=== PATIENT | male | born 1960 | race Caucasian/White ===

== ENCOUNTER 2020-03-30 16:32 | Emergency (ER) | payer OTHER, SELFPAY ==
[2020-03-30 16:37] VITALS: BP 158/83; PULSE 79; RESP 22; TEMP 5447.2; TEMP 9837; O2SAT 97; BMI 24.4
== END 2020-03-30 17:58 | disposition left against medical advice (07) ==
PROVIDERS: Emergency Provider Emergency Medicine
DX: F41.9 Anxiety disorder, unspecified (principal); F11.20 Opioid dependence, uncomplicated
CPT/HCPCS: 99282

== ENCOUNTER → 2020-04-21 13:41 | Outpatient (BNVA) | payer OTHER, SELFPAY | PROVIDERS: PCP Nurse Practitioner Family; Visit Provider Physician Assistant Medical ==

== ENCOUNTER 2020-05-19 16:22 | Outpatient (REF) | payer OTHER, SELFPAY ==
--- NOTE | ~2020-05-19 | CT_ITS ---
EXAMINATION: CT CHEST SCREENING CLINICAL INFORMATION: Smoking history COMPARISON: Previous chest x-ray August 2018 TECHNIQUE: Multidetector volumetric CT imaging of the chest is performed without contrast using low dose technique. Additional 2D coronal and sagittal reformatted images and axial 3D maximum intensity projection (MIP) images are generated on the CT workstation. This CT examination was performed using dose optimization techniques as appropriate, variously including the following: *Automated exposure control *Adjustment of mA and/or kV according to patient size (this includes techniques or standardized protocols for targeted exams where dose is matched to indication/reason for exam; i.e. extremities or head) *Use of iterative reconstruction technique DLP: 53 mGy-cm FINDINGS: LUNGS: There is a 5 mm heterogeneous left upper lobe nodule axial image 54 series 5. There is a 2 mm right upper lobe nodule axial image 88 series 5. There is a 3 mm peripheral left upper lobe nodule axial image 93 series 5. There is a 2 mm left upper lobe nodule axial image 109 series 5. There is a 3 mm left upper lobe nodule axial image 173 series 5. There is a 2 mm right upper lobe nodule axial 2 9 series 5. There is a 5 mm peripheral or subpleural right lower lobe nodule axial 221 series 5. There is a 3 mm slightly 100 TE as nodule in the right lower lobe axial image 392 series 5. There is a 2 mm peripheral right lower lobe nodule axial image 333 series 5. There is a 2 mm right lower lobe nodule axial image 449 series 5. There is evidence of mild emphysema. No evidence of bronchiectasis or interstitial lung disease is seen. No endobronchial or endotracheal lesion is seen. MEDIASTINUM: There is mild coronary artery calcification. The mediastinum is otherwise normal. PLEURA: There is no pleural effusion. No pleural mass or thickening. AXILLA: No lymphadenopathy. UPPER ABDOMEN: The left adrenal gland is slightly prominent. The right adrenal gland is normal. OSSEOUS STRUCTURES: There are degenerative changes of the spine. CT/CT lung screening IMPRESSION: Mild emphysema. Small pulmonary nodules. Mild coronary artery calcification. ASSESSMENT: Lung-RADS category 2: Benign RECOMMENDATION: Annual low-dose chest CT follow-up recommended.
== END 2020-05-19 16:23 | disposition home or self-care (01) ==
LOC: HO.CT 16:22
PROVIDERS: PCP Nurse Practitioner Family; Visit Provider Physician Assistant Medical
DX: Z12.2 Encounter for screening for malignant neoplasm of respiratory organs (principal); F17.210 Nicotine dependence, cigarettes, uncomplicated
CPT/HCPCS: 71271

== ENCOUNTER 2020-11-27 07:58 | Outpatient (REF) | payer OTHER, SELFPAY ==
[2020-11-27 11:55] LABS: Alanine Aminotransferase 24 U/L (0-40); Albumin Level 4.4 g/dL (3.5-5.0); Alkaline Phosphatase 99 U/L (39-117); Anion Gap 15 (12-20); Aspartate Amino Transferase 20 U/L (5-37); Bilirubin Total 0.2 mg/dL (0.0-1.0); Blood Urea Nitrogen 12 mg/dL (9-16); Calcium 9.5 mg/dL (8.4-10.2); Carbon Dioxide 26 mmol/L (22-29); Chloride 103 mmol/L (96-108); Cholesterol 180 mg/dL; Estimated Glomerular Filt Rate > 60; Glucose Fasting 117 mg/dL (60-99); HDL Cholesterol 61 mg/dL; LDL Cholesterol Calculated 101 mg/dl; Potassium 4.4 mmol/L (3.3-5.1); Sodium 140 mmol/L (135-145); Total Protein 7.5 g/dL (6.5-8.0); Triglycerides 90 mg/dL
[2020-11-27 12:17] LABS: Prostate Specific Antigen Scr 0.42 ng/mL (<0.05-4.0); TSH reflex Free T4 1.22 uIU/mL (0.32-4.0)
== END 2020-11-27 07:59 | disposition home or self-care (01) ==
LOC: HO.HMGCLDS 07:58
PROVIDERS: PCP Nurse Practitioner Family; Visit Provider Nurse Practitioner Family
DX: Z00.00 Encounter for general adult medical examination without abnormal findings (principal); Z12.5 Encounter for screening for malignant neoplasm of prostate
CPT/HCPCS: 36415; 80053; 80061; 84153; 84443

== ENCOUNTER 2021-12-04 09:30 | Outpatient (REF) | payer OTHER, SELFPAY | END 2021-12-04 09:31 | disposition home or self-care (01) | LOC: HO.CT 09:30 | PROVIDERS: Visit Provider Physician Assistant Medical | DX: Z12.2 Encounter for screening for malignant neoplasm of respiratory organs (principal); F17.210 Nicotine dependence, cigarettes, uncomplicated | CPT/HCPCS: 71271 ==

== ENCOUNTER 2022-09-21 08:52 | Outpatient (REF) | payer OTHER, SELFPAY ==
[2022-09-21 11:27] LABS: MANUAL DIFF FLAG NO
[2022-09-21 11:34] LABS: Basophils Absolute Auto 0.1 X10*3/uL (0.0-0.2); Basophils Percent Auto 0.8 % (0-2); Eosinophils Absolute Auto 0.2 X10*3/uL (0.0-0.4); Eosinophils Percent Auto 1.7 % (0-4); Hematocrit 46.7 % (42.0-52.0); Hemoglobin 15.4 g/dl (14.0-18.0); Imm Gran Abs Auto 0.03 X10*3/uL (0.00-0.03); Imm Gran Pct Auto 0.3 % (0.0-0.4); Lymphocytes Absolute Auto 2.6 X10*3/uL (1.2-4.9); Mean Corpuscular Hemoglobin 28.4 pg (27.0-33.0); Mean Corpuscular Volume 86.2 fL (80.0-98.0); Mean Platelet Volume 10.3 fL (9.4-12.4); Monocytes Absolute Auto 0.8 X10*3/uL (0.1-1.2); Neutrophils Absolute Auto 7.5 x10*3/uL (2.0-8.3); Neutrophils Percent Auto 67.2 % (45-73); Platelet Count 301 X10*3/uL (160-400); Red Blood Count 5.42 X10*6/uL (4.60-5.80); Red Cell Distribution Width 13.1 % (11.0-16.0); White Blood Count 11.2 X10*3/uL (4.8-10.8)
[2022-09-21 11:41] LABS: Appearance Urine Clear; Color Urine Yellow; Glucose Urine UA Negative (Negative); Leukocyte Esterase Urine Negative (Negative); Nitrite Urine Negative (Negative); Urine Blood Negative (Negative); Urine Ketones Negative (Negative); Urine Protein Negative (Neg-Trace)
[2022-09-21 12:09] LABS: Alanine Aminotransferase 42 U/L (0-40); Albumin Level 4.4 g/dL (3.5-5.0); Alkaline Phosphatase 97 U/L (39-117); Anion Gap 12 (12-20); Aspartate Amino Transferase 23 U/L (5-37); Bilirubin Total 0.3 mg/dL (0.0-1.0); Blood Urea Nitrogen 11 mg/dL (9-16); Calcium 9.7 mg/dL (8.4-10.2); Carbon Dioxide 29 mmol/L (22-29); Chloride 103 mmol/L (96-108); Cholesterol 185 mg/dL; Estimated Glomerular Filt Rate > 60; Glucose Fasting 105 mg/dL (60-99); HDL Cholesterol 51 mg/dL; LDL Cholesterol Calculated 115 mg/dl; Potassium 4.4 mmol/L (3.3-5.1); Sodium 140 mmol/L (135-145); Total Protein 7.9 g/dL (6.5-8.0); Triglycerides 96 mg/dL
[2022-09-21 12:13] LABS: Prostate Specific Antigen Scr 0.93 ng/mL (<0.05-4.0); TSH reflex Free T4 1.33 uIU/mL (0.32-4.0)
== END 2022-09-21 08:53 | disposition home or self-care (01) ==
LOC: HO.HMGCLDS 08:52
PROVIDERS: PCP Nurse Practitioner Family; Visit Provider Nurse Practitioner Family
DX: I10 Essential (primary) hypertension (principal); Z12.5 Encounter for screening for malignant neoplasm of prostate
CPT/HCPCS: 36415; 80053; 80061; 81003; 84153; 84443; 85025

== ENCOUNTER 2022-10-11 08:10 | Outpatient (REF) | payer OTHER, SELFPAY ==
--- NOTE | 2022-10-11 08:54 | PFT_ITS ---
FLOWS: 1. FEV1 53% of predicted at 2.08 L. 2. FVC 79% of predicted at 4.07 L. 3. FEV1 to FVC ratio of 0.51. 4. No bronchodilator response. LUNG VOLUMES: 1. Total lung capacity 93% of predicted at 6.93 L. 2. Residual volume 106% of predicted at 2.51 L. 3. Slow vital capacity 87% of predicted at 4.42 L. 4. Expiratory reserve volume 111% of predicted at 1.71 L. 5. Diffusion capacity is mildly decreased. IMPRESSION: Moderate obstructive ventilatory defect with no bronchodilator response. Decreased diffusion capacity suggests emphysema. MD GRISELDA Clark/MODL / [id number]
== END 2022-10-11 08:11 | disposition home or self-care (01) ==
LOC: HO.RESP 08:10
PROVIDERS: PCP Nurse Practitioner Family; Visit Provider Nurse Practitioner Family
DX: J44.9 Chronic obstructive pulmonary disease, unspecified (principal)
CPT/HCPCS: 94010; 94727; 94729

== ENCOUNTER → 2022-10-11 08:54 | Outpatient (BNV) | payer OTHER, SELFPAY | PROVIDERS: PCP Nurse Practitioner Family; Visit Provider Internal Medicine Pulmonary Disease | DX: J44.9 Chronic obstructive pulmonary disease, unspecified (principal); F17.210 Nicotine dependence, cigarettes, uncomplicated | CPT/HCPCS: 94060; 94727; 94729 ==

== ENCOUNTER 2023-01-27 08:25 | Outpatient (AMB) | payer OTHER, SELFPAY ==
[2023-01-27 08:55] VITALS: BP 132/70; PULSE 68; TEMP 36.6; O2SAT 96; BMI 26.7
--- NOTE | 2023-01-27 08:55 | MHC.OFFWIV ---
Intake Vital Signs 01/27/23 08:55 Height 6 ft Weight 197 lb BMI 26.7 BP 132/70 Blood Pressure Location Lt brachial Position Sitting Pulse 68 Pulse Source Pulse Oximeter Temp 97.8 F Temp Source Temporal Artery Scan Pulse Oximetry (%) 96 Intake Visit Reasons: EP ?Spider bite Lt arm Intake Note: pt is here for c.o spider bite left arm Patient Tobacco Use Status: Current everyday Tobacco user Allergies No Known Allergies [No Known Allergies*] Allergy (Verified 01/27/23 09:41) Medication List - Last Reconciled 01/27/23 by Pilo Medrano MD albuterol sulfate 90 mcg/actuation (ProAir HFA) 1 puff inhalation QID PRN amlodipine 10 mg PO DAILY 90 days clonidine HCl 0.2 mg PO TID 90 days diltiazem HCl 30 mg PO BID 90 days fluticasone propion-salmeterol 250-50 mcg/dose (Advair Diskus) 1 inh inhalation Q12H 90 days hydrochlorothiazide 12.5 mg PO DAILY Do you need a note to return to daycare/school/sports/work: Yes HPI EP ?Spider bite Lt arm HPI Details 62-year-old male presents to the office for a sick visit. Patient has a bruise on the left forearm any believes it could be a spider bite. Symptoms are present since last night. [facility] Medical History (Updated 01/27/23 @ 09:42 by Pilo Medrano MD) Colon cancer screening declined Heroin abuse Substance abuse Right femoral fracture Family History Father No problems noted. Family/Other No problems noted. Other Substance use disorder Housing: House Alcohol intake: former Patient Tobacco Use Status: Current everyday Tobacco user Cigarette Packs Per Day: 1 Years Smoked: 44 (onset 15) e-Cigarette/Vaping Use: Never Used Second Hand Smoke Exposure: No Current occupational status: employed Current occupation: [employer] Current occupational exposures/hazards: Yes Cognitive needs: No Hearing needs: No Vision needs: No Physical Exam Vital Signs: Last Vital Signs Temp 97.8 F 01/27/23 08:55 Pulse 68 01/27/23 08:55 BP 132/70 01/27/23 08:55 Pulse Ox 96 01/27/23 08:55 BMI result Body Mass Index 26.7 Skin Other: Left forearm: 3 centimetres linea bruising with no erythema or tenderness. Assessment & Plan Assessment & Plan (1) Traumatic ecchymosis of left forearm: Code(s): S50.12XA - Contusion of left forearm, initial encounter Plan: Patient insists it is a spider bite. Doxycycline for 2 days given. Coding Level of Care Code Est Pt Level 3 (52640) Diagnoses Traumatic ecchymosis of left forearm S50.12XA
== END 2023-01-27 09:41 | disposition home or self-care (01) ==
PROVIDERS: PCP Nurse Practitioner Family; Visit Provider Internal Medicine
DX: S50.12XA Contusion of left forearm, initial encounter (principal)
CPT/HCPCS: 99213

== ENCOUNTER 2023-02-18 07:51 | Outpatient (AMB) | payer OTHER, SELFPAY ==
--- NOTE | 2023-02-18 07:58 | A.OFFPC_ITS ---
Vital Signs 02/18/23 08:01 Height 6 ft Weight 201 lb BMI 27.3 BP 138/90 H Blood Pressure Location Lt brachial Position Sitting Pulse 72 Pulse Source Pulse Oximeter Pulse Oximetry (%) 93 Oxygen Delivery Method Room Air Intake Visit Reasons: Annual PE Intake Note: Patient here for physical exam and would like to address GI issues. Allergies No Known Allergies [No Known Allergies*] Allergy (Verified 02/18/23 08:02) Tobacco use date assessed: 08/19/22 Dental Screening Dental Screen Date: 02/18/23 Did you have a dental visit in the last 12 months?: No Did you have a dental problem in the last 6 months where you did not have access to dental care?: No Was dental information given to patient?: No HPI Annual PE HPI Details Pt is here for a PE. Will order labs. Refuses all colon screens. PSA is up to date. Denies dribbling with urination, weak stream, and frequent nocturia. Pt c/o lower transverse abdominal discomfort. He reports that this has been present for about 1 month. Pt reports some constipation and GERD symptoms, wihtout N/V. Will order CT and FIT test, refused cologuard and colonoscopy. Will also refer to GI and send omeprazole. Denies fever, chills, and blood in stool. HTN: Blood pressure is managed with amlodipine 10mg, clonidine 0.2mg tid, ditiazem 30mg bid, and hydrochlorothiazide 12.5mg. Will increase hctz to 25mg and diltiazem to 60mg bid. Denies chest pain, shortness of breath, headache, dizziness, and blurred vision. Pt is a smoker, will refer for low-dose CT follow up. [facility] Medical History Colon cancer screening declined Heroin abuse Substance abuse Right femoral fracture Family History Father No problems noted. Family/Other No problems noted. Other Substance use disorder Social History Housing: House Alcohol intake: former Patient Tobacco Use Status: Current everyday Tobacco user Cigarette Packs Per Day: 1 Years Smoked: 44 (onset 15) e-Cigarette/Vaping Use: Never Used Second Hand Smoke Exposure: No Current occupational status: employed Current occupation: [employer] Current occupational exposures/hazards: Yes Cognitive needs: No Hearing needs: No Vision needs: No Questionnaire Thrive Questionnaire Date Thrive assessed: 03/26/21 AUDIT C Alcohol Use Questionnaire (AUDIT-C) 1. How often do you have a drink containing alcohol?: Never 3. How often do you have six or more drinks on one occasion?: Never Total Score: 0 Score Reviewed/Action Taken: No Review of Systems Const Denies chills and Denies fever(s) Eyes Denies blurry vision ENT Denies vertigo, Denies dizziness and Denies sore throat Card Denies chest pain at rest, Denies chest pain with activity, Denies diaphoresis, Denies dyspnea and Denies dyspnea on exertion Resp Denies cough, Denies dyspnea, Denies dyspnea on exertion and Denies wheezing GI Denies abdominal pain, Denies melena, Denies hematochezia, Denies constipation, Denies diarrhea and Denies loose stools Denies hematuria Musc Denies numbness and Denies tingling Skin/Breast Denies lesions Neuro Denies vertigo, Denies dizziness, Denies numbness and Denies tingling Psych Denies anxiety, Denies depression, Denies homicidal ideation, Denies suicidal ideation and Denies other (substance abuse) Aller/Immun Denies wheezing Physical exam (Primary Care) Vital Signs: Last Vital Signs Pulse 72 02/18/23 08:01 BP 138/90 H 02/18/23 08:01 Pulse Ox 93 02/18/23 08:01 Oxygen Delivery Method Room Air 02/18/23 08:01 BMI result Body Mass Index 27.3 Tobacco/Smoking Status: Tobacco use Status Tobacco use date assessed 08/19/22 02/18/23 08:00 Patient Tobacco Use Status Current everyday Tobacco 02/18/23 08:00 e-Cigarette/Vaping Use Never Used 02/18/23 08:00 Thrive Assessment: Date of Thrive Assessment Date Thrive assessed 03/26/21 02/18/23 08:00 Const General: cooperative Nutritional Appearance: well nourished Orientation/consciousness: patient oriented x3 HENMT Head: Yes normal to inspection, Yes normocephalic and Yes atraumatic Ears: TM's normal bilaterally Eyes General: appearance normal, both eyes and all related structures Alignment and Position: alignment normal and position normal Neck Neck: Yes normal visual inspection and Yes no lymphadenopathy Thyroid: Thyroid normal Resp Effort & Inspection: normal respiratory effort Auscultation: clear to auscultation bilaterally and diminished lung sounds Cardio Rate: regular rate Rhythm: regular rhythm Heart sounds: S1 normal heart sound present, S2 normal heart sound present and no murmurs GI Other: tenderness with palpation of lower abdomen Palpation (GI): Soft to palpation and Hernia present umbilical Auscultation: normal bowel sounds Other: refused YAEL Male General Exam: Yes normal external exam Penis: normal penis Scrotum: scrotum normal, testes descended bilaterally and no inguinal hernias Testes: no testicular mass Skin Rashes: no rashes Neuro General: patient oriented x3, moves all extremities, no focal motor deficits and deep tendon reflexes 2+ bilaterally Romberg Test: Negative Psych Appearance: grossly normal Mental Status: mental status grossly normal Speech and movement: Normal speech and movement present Affect: normal affect Attitude: cooperative Thought process: Normal thought process present Thought content: Normal thought content present Insight: Good insight present (Psych) Judgement: Good judgement present (Psych) Assessment and Plan Assessment & Plan (1) Physical exam: Code(s): Z00.00 - Encounter for general adult medical examination without abnormal findings Plan: Labs ordered (2) Abdominal discomfort: Code(s): R10.9 - Unspecified abdominal pain Plan: CT and FIT test ordered, referred to GI, omperazole sent Plan The patient agreed to the use of a medical information officer for this encounter. Scribed for JEANETH Chaves by Luna Anderson medical information officer, on 02/18/2023 at 08:20 EST. Orders: Orders Complete Blood Count Auto Diff Today Z00.00 - Encounter for general adult medical examination without abnormal findings Comprehensive Wellman. Panel Fast Today Z00.00 - Encounter for general adult medical examination without abnormal findings TSH reflex Free T4 Today Z00.00 - Encounter for general adult medical examination without abnormal findings FITS Today R10.9 - Unspecified abdominal pain UA CC w/rflx Micro + Cult Today Z00.00 - Encounter for general adult medical examination without abnormal findings Lipid Panel Today Z00.00 - Encounter for general adult medical examination without abnormal findings CT abdomen pelvis w IV con Today R10.9 - Unspecified abdominal pain Referrals Gastroenterology Referral R10.9 - Unspecified abdominal pain Medications: New omeprazole 20 mg PO DAILY 90 caps 0RF Changed From diltiazem HCl 30 mg PO BID 90 days 180 tabs 1RF To diltiazem HCl 60 mg PO BID 90 days 180 tabs 1RF From hydrochlorothiazide 12.5 mg PO DAILY 90 tabs 1RF To hydrochlorothiazide 25 mg PO DAILY 90 tabs 1RF Coding Level of Care Code Est Pt Prev Care 40-64y(65547) Diagnoses Physical exam Z00.00 Abdominal discomfort R10.9
[2023-02-18 08:01] VITALS: BP 138/90; PULSE 72; O2SAT 93; BMI 27.3
== END 2023-02-18 09:22 | disposition home or self-care (01) ==
PROVIDERS: PCP Nurse Practitioner Family; Visit Provider Nurse Practitioner Family
DX: Z00.00 Encounter for general adult medical examination without abnormal findings (principal); R10.9 Unspecified abdominal pain
CPT/HCPCS: 99396

== ENCOUNTER 2023-03-10 10:51 | Outpatient (REF) | payer OTHER, SELFPAY ==
[2023-03-10 13:34] LABS: MANUAL DIFF FLAG NO
[2023-03-10 13:44] LABS: Basophils Absolute Auto 0.1 X10*3/uL (0.0-0.2); Basophils Percent Auto 0.9 % (0-2); Eosinophils Absolute Auto 0.2 X10*3/uL (0.0-0.4); Eosinophils Percent Auto 2.2 % (0-4); Hematocrit 43.8 % (42.0-52.0); Hemoglobin 14.2 g/dl (14.0-18.0); Imm Gran Abs Auto 0.03 X10*3/uL (0.00-0.03); Imm Gran Pct Auto 0.3 % (0.0-0.4); Lymphocytes Percent Auto 32.4 % (20-40); Mean Corpuscular HGB Conc 32.4 g/dl (31.0-36.0); Mean Corpuscular Hemoglobin 28.1 pg (27.0-33.0); Mean Corpuscular Volume 86.6 fL (80.0-98.0); Mean Platelet Volume 9.9 fL (9.4-12.4); Monocytes Absolute Auto 0.7 X10*3/uL (0.1-1.2); Monocytes Percent Auto 7.5 % (2-11); Neutrophils Absolute Auto 5.3 x10*3/uL (2.0-8.3); Neutrophils Percent Auto 56.7 % (45-73); Platelet Count 354 X10*3/uL (160-400); Red Blood Count 5.06 X10*6/uL (4.60-5.80); White Blood Count 9.4 X10*3/uL (4.8-10.8)
[2023-03-10 13:50] LABS: Appearance Urine Cloudy; Color Urine Yellow; Glucose Urine UA Negative (Negative); Leukocyte Esterase Urine Negative (Negative); Nitrite Urine Negative (Negative); Urine Blood Negative (Negative); Urine Ketones Negative (Negative); Urine Protein Negative (Neg-Trace)
[2023-03-10 14:10] LABS: Alanine Aminotransferase 32 U/L (0-40); Albumin Level 4.3 g/dL (3.5-5.0); Alkaline Phosphatase 82 U/L (39-117); Anion Gap 11 (12-20); Aspartate Amino Transferase 24 U/L (5-37); Bilirubin Total 0.4 mg/dL (0.0-1.0); Blood Urea Nitrogen 15 mg/dL (9-16); Calcium 9.8 mg/dL (8.4-10.2); Carbon Dioxide 29 mmol/L (22-29); Chloride 103 mmol/L (96-108); Cholesterol 174 mg/dL (<200); Estimated Glomerular Filt Rate > 60; Glucose Fasting 112 mg/dL (60-99); HDL Cholesterol 56 mg/dL (>40); LDL Cholesterol Calculated 108 mg/dL (<100); Sodium 139 mmol/L (135-145); Total Protein 7.5 g/dL (6.5-8.0); Triglycerides 54 mg/dL (<150)
[2023-03-10 14:27] LABS: TSH reflex Free T4 0.76 uIU/mL (0.32-4.0)
== END 2023-03-10 10:52 | disposition home or self-care (01) ==
LOC: HO.HMGCLDS 10:51
PROVIDERS: PCP Nurse Practitioner Family; Visit Provider Nurse Practitioner Family
DX: Z00.00 Encounter for general adult medical examination without abnormal findings (principal)
CPT/HCPCS: 36415; 80053; 80061; 81003; 84443; 85025

== ENCOUNTER 2023-03-28 08:05 | Outpatient (REF) | payer OTHER, SELFPAY ==
--- NOTE | ~2023-03-28 | CT_ITS ---
EXAMINATION: CT ABDOMEN AND PELVIS WITH CONTRAST CLINICAL INFORMATION: Unspecified abdominal pain. COMPARISON: None available. TECHNIQUE: Multidetector volumetric images were obtained from the superior aspect of the liver through the pubic symphysis following administration 85 mL of Omnipaque 350 intravenous contrast. Sagittal and coronal reformatted images were obtained on the technologist's workstation. Oral contrast: No This CT examination was performed using dose optimization techniques as appropriate, variously including the following: *Automated exposure control *Adjustment of mA and/or kV according to patient size (this includes techniques or standardized protocols for targeted exams where dose is matched to indication/reason for exam; i.e. extremities or head) *Use of iterative reconstruction technique DLP: 474 mGy-cm FINDINGS: LUNG BASES: Please see separately dictated report. LIVER, GALLBLADDER, AND BILIARY TREE: The liver is normal in size and contour. No suspicious hepatic lesion or biliary ductal dilatation is present. The gallbladder is unremarkable with no evidence of radiopaque gallstones, gallbladder wall thickening, or obvious pericholecystic inflammatory changes. PANCREAS: No ductal dilatation. SPLEEN: Not enlarged. ADRENAL GLANDS: Hyperplastic left adrenal gland with discrete nodule measuring 1.7 x 3.7 cm. Right adrenal gland is unremarkable. KIDNEYS AND URETERS: The kidneys are normal in size, shape, and attenuation. 5 mm nonobstructing calculus lower pole right kidney. No hydronephrosis. No perinephric stranding. BLADDER: Unremarkable. GASTROINTESTINAL TRACT: Small and large bowel loops are of normal caliber. Marked fecal retention in the colon. No small bowel obstruction. Appendix is within normal limits. ABDOMINAL WALL: Small fat-containing left inguinal hernia. LYMPH NODES: No bulky lymphadenopathy. VASCULAR: Normal caliber abdominal aorta. PELVIC VISCERA: Unremarkable. OSSEOUS STRUCTURES: No destructive bone lesions. CT/CT abdomen pelvis w IV con IMPRESSION: Indeterminate left adrenal nodule measures 1.7 x [address] or MRI for further characterization. 5 mm nonobstructing right renal calculus. No hydronephrosis. Constipation.
[2023-03-28] MEDS: iohexoL 350 MG/ML 75 ML INFUS..BTL 85 ML IV (08:51)
== END 2023-03-28 08:06 | disposition home or self-care (01) ==
LOC: HO.CT 08:05
PROVIDERS: PCP Nurse Practitioner Family; Visit Provider Nurse Practitioner Family
DX: R10.9 Unspecified abdominal pain (principal)
CPT/HCPCS: 74177; Q9967

== ENCOUNTER 2023-03-31 08:34 | Outpatient (REF) | payer OTHER, SELFPAY ==
--- NOTE | ~2023-03-31 | CT_ITS ---
EXAMINATION: CT CHEST SCREENING CLINICAL INFORMATION: Current smoker: 45 pack-year smoking history. COMPARISON: 03/28/[address] Previous chest CTs dating back to 05/19/2020. TECHNIQUE: Multidetector volumetric CT imaging of the chest is performed without contrast using low dose technique. Additional 2D coronal and sagittal reformatted images and axial 3D maximum intensity projection (MIP) images are generated on the CT workstation. This CT examination was performed using dose optimization techniques as appropriate, variously including the following: *Automated exposure control *Adjustment of mA and/or kV according to patient size (this includes techniques or standardized protocols for targeted exams where dose is matched to indication/reason for exam; i.e. extremities or head) *Use of iterative reconstruction technique DLP: 62 mGy-cm FINDINGS: DWARF TREE GROWER: No acute cardiopulmonary disease. LUNGS: Trachea and bronchi are patent. Debris left sided trachea likely mucus. Right lower lobe bronchial wall thickening seen on 12/04/2021 has improved. Hyperinflated lungs with mild centrilobular emphysema. Scattered mild atelectasis. New 4 mm PHILLIP, 6:244 and 3 mm LLL subpleural nodules, 6:240. MEDIASTINUM: Unremarkable thyroid. Nonspecific mediastinal lymph nodes. No pathologic lymphadenopathy. Nonenlarged heart. No pericardial effusion. Nonaneurysmal aorta with atherosclerotic calcifications. No pulmonary arterial enlargement. CORONARY ARTERY CALCIFICATION: Moderately severe. PLEURA: There is no pleural effusion. No pleural mass or thickening. AXILLA: No lymphadenopathy. UPPER ABDOMEN: Partial inclusion 3.7 cm enlarged left adrenal gland. This demonstrated fat density on 05/19/2020 CT. OSSEOUS STRUCTURES: No suspicious osseous lesions. CT/CT lung screening IMPRESSION: Interval development of left upper and left lower lobe pulmonary nodules, none larger than 4 mm. ASSESSMENT: Lung-RADS category 3: Probably Benign RECOMMENDATION: Short interval 6 month follow up low dose CT chest.
== END 2023-03-31 08:35 | disposition home or self-care (01) ==
LOC: HO.CT 08:34
PROVIDERS: PCP Nurse Practitioner Family; Visit Provider Physician Assistant Medical
DX: Z12.2 Encounter for screening for malignant neoplasm of respiratory organs (principal); F17.210 Nicotine dependence, cigarettes, uncomplicated
CPT/HCPCS: 71271

== ENCOUNTER 2023-05-07 10:32 | Outpatient (AMB) | payer OTHER, SELFPAY ==
--- NOTE | 2023-05-07 10:33 | MHC.OFFVIS ---
Intake Vital Signs 05/07/23 10:36 Height 6 ft Weight 205 lb 0.478 oz BMI 27.8 BP 155/74 H Blood Pressure Location Lt brachial Position Sitting Pulse 77 Intake Visit Reasons: Blood in stool, unspecified abdominal pain Intake Note: Hermes presents in the office as a new patient for blood in stools and abdominal pains. CC: HE states since taking omeprazole there has been less bleeding. He states that there is a pink ring around the stool. Allergies No Known Allergies [No Known Allergies*] Allergy (Verified 05/07/23 10:36) HPI HPI Comments History of Present Illness Details 62 y.o M with PMH of COPD, HTN, SVT (was prev est by Kenya Brice at [facility] [place]), polysubstance use disorder who is here for blood in stool. Pt reports having hard stools that are like pellets +/- straining. Stool is brown but would see blood on it and on wiping. Also reports R lower right quadrant pain without nausea or weight loss. In fact has been gaining weight. Has been taking nexium and mylanta which seemed to have helped. Constipation is better with milk of mag PRN. Has never had a colo. No fam hx of CRC. Pt himself has smoking hx - roughly 55 PY hx. Remote use of etOH use disorder. Sober for 8 years. Used to drink hard liquor 12-15 times a day. Not aware of any liver issues. Also uses heroin - sniffs. Prev hx of crack/cocaine use around 5 years. In terms of cardiac hx, has hx of SVT, V TAch and PVCs + severe HTN - started on diltiazem, clonidine and amlodipine. BB avoided due to hx of cocaine use in past. Prev echo normal (2020). Was seen by [facility] Medical History Colon cancer screening declined Heroin abuse Substance abuse Right femoral fracture Family History Father No problems noted. Family/Other No problems noted. Other Substance use disorder Social History Housing: House Alcohol intake: former Patient Tobacco Use Status: Current everyday Tobacco user Cigarette Packs Per Day: 1 Years Smoked: 44 (onset 15) e-Cigarette/Vaping Use: Never Used Second Hand Smoke Exposure: No Current occupational status: employed Current occupation: [employer] Current occupational exposures/hazards: Yes Cognitive needs: No Hearing needs: No Vision needs: No Review of Systems Const All systems reviewed & are unremarkable except as noted in HPI and below Physical Exam Vital Signs: Last Vital Signs Pulse 77 05/07/23 10:36 BP 155/74 H 05/07/23 10:36 BMI result Body Mass Index 27.8 Const General: healthy appearing and comfortable Resp Effort & Inspection: normal respiratory effort Assessment & Plan Assessment & Plan (1) Bright red rectal bleeding: Code(s): K62.5 - Hemorrhage of anus and rectum (2) Supraventricular tachycardia: Code(s): I47.10 - Supraventricular tachycardia, unspecified (3) Palpitations: Code(s): R00.2 - Palpitations (4) Polysubstance abuse: Code(s): F19.10 - Other psychoactive substance abuse, uncomplicated (5) Smoker: Comment: (onset 15yo, 1ppd x 44years, now 1/2ppd, 44pyh) Code(s): F17.200 - Nicotine dependence, unspecified, uncomplicated (6) Multiple pulmonary nodules: Code(s): R91.8 - Other nonspecific abnormal finding of lung field Plan Ddx includes hemorrhoidal bleeding, proctitis, SURS, large polyps/mass. Needs a diagnostic colo however will likely need cardiac clearance first. Pt reports persistent intermittent palpitations despite taking all his meds as prescribed. Lost to follow up with [facility] [place] [facility] but interested in re-establishing care locally. In terms of COPD, appears under control, does not need supplemental O2. Given substance use disorder - will check hep serologies. Plan: - Diagnostic colo - Split PEG prep instructions reviewed - Cardiology referral - Hep serologies ordered - Counseled on heroin and smoking cessation Follow up after colo Orders: Orders Hepatitis B Core Antibody Today F19.10 - Other psychoactive substance abuse, uncomplicated Hepatitis C Antibody Today F19.10 - Other psychoactive substance abuse, uncomplicated Hepatitis A IgG Today F19.10 - Other psychoactive substance abuse, uncomplicated Hepatitis B Surface Antibody Today F19.10 - Other psychoactive substance abuse, uncomplicated Hepatitis B Surface Antigen Today F19.10 - Other psychoactive substance abuse, uncomplicated Referrals Cardiology Referral I47.10 - Supraventricular tachycardia, unspecified Medications: New peg 3350-electrolytes 236-22.74-6.74 -5.86 gram (Golytely) as per split prep instructions, until fecal effluent is clear 240 mL PO Q10M 4,000 mL 0RF colonoscopy Coding Level of Care Code New Pt Level 4 (50523) Diagnoses Bright red rectal bleeding K62.5 Supraventricular tachycardia I47.10 Palpitations R00.2 Polysubstance abuse F19.10 Smoker F17.200 Multiple pulmonary nodules R91.8
[2023-05-07 10:36] VITALS: BP 155/74; PULSE 77; BMI 27.8
== END 2023-05-07 11:36 | disposition home or self-care (01) ==
PROVIDERS: PCP Nurse Practitioner Family; Visit Provider Internal Medicine
DX: K62.5 Hemorrhage of anus and rectum (principal); I47.10 Supraventricular tachycardia, unspecified; R00.2 Palpitations; F19.10 Other psychoactive substance abuse, uncomplicated; F17.200 Nicotine dependence, unspecified, uncomplicated; R91.8 Other nonspecific abnormal finding of lung field
CPT/HCPCS: 99204

== ENCOUNTER → 2023-05-07 10:32 | Outpatient (BNVA) | payer OTHER, SELFPAY | PROVIDERS: PCP Nurse Practitioner Family; Visit Provider Internal Medicine ==

== ENCOUNTER 2023-05-22 09:25 | Outpatient (AMB) | payer OTHER, SELFPAY ==
[2023-05-22 09:30] VITALS: BP 132/70; PULSE 72; O2SAT 95; BMI 28.6
--- NOTE | 2023-05-22 09:30 | MHC.PC.OV ---
Vital Signs 05/22/23 09:30 Height 6 ft Weight 211 lb BMI 28.6 BP 132/70 Blood Pressure Location Lt brachial Position Sitting Pulse 72 Pulse Source Pulse Oximeter Pulse Oximetry (%) 95 Oxygen Delivery Method Room Air Intake Visit Reasons: 3 Month follow up Intake Note: pt is here for 3 month follow up Manager Knowledge Required: No Accompanied by: Self / Same As Patient Allergies No Known Allergies [No Known Allergies*] Allergy (Verified 05/22/23 10:03) Medication List - Last Reconciled 05/22/23 by JEANETH Avila albuterol sulfate 90 mcg/actuation (ProAir HFA) 1 puff inhalation QID PRN amlodipine 10 mg PO DAILY 90 days clonidine HCl 0.2 mg PO TID 90 days diltiazem HCl 60 mg PO BID 90 days hydrochlorothiazide 25 mg PO DAILY omeprazole 20 mg PO DAILY Tobacco use date assessed: 05/22/23 Dental Screening Dental Screen Date: 05/22/23 Did you have a dental visit in the last 12 months?: No Did you have a dental problem in the last 6 months where you did not have access to dental care?: No Was dental information given to patient?: Patient declined HPI 3 Month follow up HPI Details HTN: Blood pressure is stable, managed with amlodipine 10mg, clonidine 0.2mg tid, diltiazem 60mg bid, and hydrochlorothiazide 25mg. Denies chest pain, shortness of breath, headache, dizziness, and blurred vision. Pt's fasting blood sugar was elevated. Educated on proper diet and portion sizes. Due for PSA, will order. Denies dribbling with urination, weak stream, and frequent nocturia. Pt is interested in smoking cessation. Will send nicotine patches, pt knows to take these off at night. He does get low-dose CTs. Pt is seeing GI for a colon screen in the near future, he needs cardiac clearance first. [facility] Medical History Colon cancer screening declined Heroin abuse Substance abuse Right femoral fracture Surgical History No pertinent past surgical history Family History Father No problems noted. Family/Other No problems noted. Other Substance use disorder Social History Housing: House Alcohol intake: former Patient Tobacco Use Status: Current everyday Tobacco user Cigarette Packs Per Day: 1 Years Smoked: 44 (onset 15) e-Cigarette/Vaping Use: Never Used Second Hand Smoke Exposure: No Current occupational status: employed Current occupation: [employer] Current occupational exposures/hazards: Yes Cognitive needs: No Hearing needs: No Vision needs: No Questionnaire PHQ-9 Over the last 2 weeks, how often have you been bothered by any of the following problems? 1. Little interest or pleasure in doing things: not at all 2. Feeling down, depressed, or hopeless: several days 3. Trouble falling or staying asleep, or sleeping too much: not at all 4. Feeling tired or having little energy: several days 5. Poor appetite or overeating: not at all 6. Feeling bad about yourself - or that you are a failure or have let yourself or your family down: several days 7. Trouble concentrating on things, such as reading the newspaper or watching television: not at all 8. Moving or speaking so slowly that other people could have noticed. Or the opposite - being so fidgety or restless that you have been moving around a lot more than usual: not at all 9. Thoughts that you would be better off or of hurting yourself in some way: not at all Total score: 3 Depression Screening Interpretation: Negative Depression Screening Done: Yes 95067 - PHQ-9 Billing: Yes Source: Developed by Drs. Dillon Hamilton, Evelyn March, Christian Simon and colleagues, with an educational alicia from [employer]. Thrive Questionnaire Date Thrive assessed: 05/22/23 I am a: Patient What is your living situation today?: I have a steady place to live Within the past 12 months, did the food you bought not last and you didn't have the money to get more?: Sometimes True Within the past 12 months, did you worry whether your food would run out before you got money to buy more?: Sometimes True Do you have trouble paying for medicines?: No Do you have trouble getting transportation to medical appointments?: No Do you have trouble paying your heating and electricity bill?: No Do you have trouble taking care of your child, family member or friend?: No Do you have trouble with day-to-day activities such as bathing, preparing meals, shopping, managing finances, etc.?: No Are you currently unemployed and looking for a job?: No Are you interested in more education?: No Please select the resources that you would like help with: None Currently or been in a relationship where the following occur: no concerns reported THRIVE Score: 2 AUDIT C Alcohol Use Questionnaire (AUDIT-C) 1. How often do you have a drink containing alcohol?: Never 3. How often do you have six or more drinks on one occasion?: Never Total Score: 0 Score Reviewed/Action Taken: Yes NAMITA-7 AMB Questionnaire NAMITA-7 Date NAMITA - 7 assessed: 05/22/23 Feeling nervous, anxious, or on edge: 1 = Several days Not being able to stop or control worryin = Not at all Worrying too much about different things: 1 = Several days Trouble relaxin = Not at all Being so restless that it is hard to sit still: 0 = Not at all Becoming easily annoyed or irritable: 0 = Not at all Feeling afraid as if something awful might happen: 0 = Not at all Total NAMITA-7 score (0-4 normal; 5-9 mild; 10-14 moderate; 15-21 severe): 2 Source: Developed by Drs. Dillon Hamilton, Evelyn March, Christian Simon and colleagues, with an educational alicia from [employer]. NAMITA-7 Assessment Billing NAMITA-7 Assessment Tool: NAMITA-7 Assessment 10867 Review of Systems Const Reports as per HPI Physical exam (Primary Care) Vital Signs: Last Vital Signs Pulse 72 05/22/23 09:30 BP 132/70 05/22/23 09:30 Pulse Ox 95 05/22/23 09:30 Oxygen Delivery Method Room Air 05/22/23 09:30 BMI result Body Mass Index 28.6 Tobacco/Smoking Status: Tobacco use Status Tobacco use date assessed 05/22/23 05/22/23 09:35 Patient Tobacco Use Status Current everyday Tobacco 05/22/23 09:35 e-Cigarette/Vaping Use Never Used 05/22/23 09:35 PHQ-9: PHQ-9 Score PHQ-9: Total score 3 05/22/23 09:46 Depression Screening Interpretation: Negative Thrive Assessment: Date of Thrive Assessment Date Thrive assessed 05/22/23 05/22/23 09:35 Currently or been in a relationship where the following occur: no concerns reported Const General: cooperative Orientation/consciousness: patient oriented x3 Resp Effort & Inspection: normal respiratory effort Auscultation: wheezes (faint) scattered wheezes and diminished lung sounds Cardio Rate: regular rate Rhythm: regular rhythm Heart sounds: S1 normal heart sound present and S2 normal heart sound present Neuro General: patient oriented x3 Extrem Right lower extremity: edema (trace) Left lower extremity: edema (trace) Psych Appearance: grossly normal Mental Status: mental status grossly normal Speech and movement: Normal speech and movement present Affect: normal affect Attitude: cooperative Thought process: Normal thought process present Thought content: Normal thought content present Insight: Good insight present (Psych) Judgement: Good judgement present (Psych) Assessment and Plan Assessment & Plan (1) HTN (hypertension): Code(s): I10 - Essential (primary) hypertension Plan: Stable, labs ordered (2) Screening PSA (prostate specific antigen): Code(s): Z12.5 - Encounter for screening for malignant neoplasm of prostate Plan: PSA ordered Plan The patient agreed to the use of a health care / medical job titles for this encounter. Scribed for DENIA Chaves-DOREEN by Luna Anderson health care / medical job titles, on 05/22/2023 at 09:45 EST. Orders: Orders UA CC w/rflx Micro + Cult Today I10 - Essential (primary) hypertension Prostate Specific Antigen Scr Today Z12.5 - Encounter for screening for malignant neoplasm of prostate Complete Blood Count Auto Diff Today I10 - Essential (primary) hypertension Comprehensive [place]. Panel Fast Today I10 - Essential (primary) hypertension TSH reflex Free T4 Today I10 - Essential (primary) hypertension Lipid Panel Today I10 - Essential (primary) hypertension Medications: New albuterol sulfate 90 mcg/actuation (Ventolin HFA) 2 puffs inhalation Q6H PRN 8.5 grams 3RF shortness of breath or wheezing nicotine 1 patch transdermal DAILY 28 ea 0RF Discontinued albuterol sulfate 90 mcg/actuation (ProAir HFA) Discontinued Reason: Doctor's Order 1 puff inhalation QID PRN 8.5 grams 5RF shortness of breath or wheezing J44.9 - Chronic obstructive pulmonary disease, unspecified Coding Level of Care Code Est Pt Level 3 (43006) Diagnoses HTN (hypertension) I10 Screening PSA (prostate specific antigen) Z12.5 Additional Codes NAMITA-7 Assessment Billing - NAMITA-7 Assessment Tool: NAMITA-7 Assessment 44593 ([id number])
== END 2023-05-22 10:03 | disposition home or self-care (01) ==
PROVIDERS: PCP Nurse Practitioner Family; Visit Provider Nurse Practitioner Family
DX: I10 Essential (primary) hypertension (principal); Z12.5 Encounter for screening for malignant neoplasm of prostate
CPT/HCPCS: 99213

== ENCOUNTER 2023-09-18 08:05 | Outpatient (AMB) | payer OTHER, SELFPAY ==
--- NOTE | 2023-09-18 08:18 | A.OFFVIS_ITS ---
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 [employer] Operator Required: No Accompanied by: Self / Same As Patient Allergies No Known Allergies [No Known Allergies*] Allergy (Verified 05/22/23 10:03) Medication List - Last Reconciled 09/18/23 by Jose Fitzpatrick MD albuterol sulfate 90 mcg/actuation (Ventolin HFA) 2 puffs inhalation Q6H PRN amlodipine 10 mg PO DAILY 90 days clonidine HCl 0.2 mg PO TID 90 days diltiazem HCl 60 mg PO BID 90 days fluticasone propion-salmeterol 250-50 mcg/dose (Advair Diskus) 1 inh inhalation BID hydrochlorothiazide 25 mg PO DAILY omeprazole 20 mg PO DAILY HPI Comments Details: Hermes is here for consultation regarding preoperative stratification for colonoscopy. He has had supraventricular arrhythmias in the past and for that reason, he is on diltiazem. Also has uncontrolled hypertension according to him and he has had very high blood pressures approaching 200 mm Hg in the past but recent blood pressures are lower than that. He has long history of heroin use and unfortunately still using that. Denies any cocaine use. History of smoking. He states he was also using a lot of alcohol in the past but nothing last few years. More recently, he has not been noticing any palpitations. Otherwise, no clear-cut symptoms like angina. He does get short of breath with activity. [facility] Medical History Colon cancer screening declined Heroin abuse Substance abuse Right femoral fracture Surgical History No pertinent past surgical history Family History Father No problems noted. Family/Other No problems noted. Other Substance use disorder Social History Housing: House Alcohol intake: former Patient Tobacco Use Status: Current everyday Tobacco user Cigarette Packs Per Day: 1 Years Smoked: 44 (onset 15) e-Cigarette/Vaping Use: Never Used Second Hand Smoke Exposure: No Current occupational status: employed Current occupation: [employer] Current occupational exposures/hazards: Yes Cognitive needs: No Hearing needs: No Vision needs: No Review of Systems Const Denies chills, Denies daytime sleepiness, Denies fatigue, Denies fever(s), Denies poor appetite, Denies snoring, Denies stops breathing during sleep, Denies weakness, Denies weight gain and Denies weight loss Eyes Denies loss of vision ENT Denies dizziness Card Denies chest pain, Denies irregular heart rhythm, Denies claudication, Denies leg edema, Denies lightheadedness, Denies palpitations, Denies dyspnea on exertion and Denies orthopnea Resp Denies cough, Denies excessive phlegm production, Denies dyspnea on exertion, Denies snoring and Denies wheezing GI Denies abdominal pain, Denies hematochezia, Denies change in bowel habits, Denies nausea and Denies vomiting Denies dysuria and Denies urinary frequency Musc Denies arthralgias, Denies muscle weakness, Denies numbness and Denies other Skin/Breast Denies nail changes and Denies rash Neuro Denies Abnormal speech present, Denies dizziness, Denies loss of vision, Denies memory loss, Denies numbness and Denies weakness Psych Denies depression and Denies memory loss Endo Denies fatigue and Denies palpitations Nikhil/Lymph Denies easy bruising Aller/Immun Denies wheezing Physical Exam Vital Signs: Last Vital Signs Pulse 60 09/18/23 08:19 BP 144/82 H 09/18/23 08:19 BMI result Body Mass Index 27.9 Const General: comfortable and no acute distress Orientation/consciousness: patient oriented x3 HEENT Other: Unremarkable Head: Yes normal to inspection Neck Neck: Yes normal visual inspection Chest Chest palpation & inspection: normal inspection of the chest Resp Auscultation: wheezes and diminished lung sounds Cardio Palpation: normal PMI Heart sounds: S1 normal heart sound present, S2 normal heart sound present, no gallops, no murmurs and no rubs GI Palpation (GI): Soft to palpation Back/Spine/Pelvis Other: unremarkable Skin General skin exam: no rashes or lesions noted Neuro General: patient oriented x3 Speech: No Abnormal speech present Extrem General: Yes normal to inspection Psych Mental Status: mental status grossly normal Office Procedures EKG Details: EKG with normal sinus rhythm at 60/Min; rightward axis; no significant ST-T changes and otherwise unremarkable[place]. [id number], Complete Assessment & Plan Assessment & Plan (1) Preoperative cardiovascular examination: Code(s): Z01.810 - Encounter for preprocedural cardiovascular examination Category: Medical (2) Polysubstance abuse: Code(s): F19.10 - Other psychoactive substance abuse, uncomplicated Category: Medical (3) Supraventricular tachycardia: Code(s): I47.10 - Supraventricular tachycardia, unspecified Category: Medical (4) Atherosclerotic cardiovascular disease: Code(s): I25.10 - Atherosclerotic heart disease of [place] coronary artery without angina pectoris Category: Medical Plan Baseline EKG is unremarkable. In the CT scan for lungs, described to have moderately severe coronary artery calcifications. In a previous Holter from 2020, the preliminary report describes 7 minutes of atrial fibrillation, but unclear if it is accurate or not. In the cardiology visit note, that was not mentioned. We will plan on getting an echocardiogram, repeat Holter and coronary CTA for further evaluation. Plan discussed with patient and he understands. No med changes for now. He has been on diltiazem without issues and may continue that. He seems to be on another calcium channel marly as well, amlodipine likely more so for hypertension. If regimen has been working, may continue for the foreseeable future. Otherwise, may switch to lisinopril. Counseled about drug use in the fact that he needs to stop it. He states that he is thinking of going to rehab. Orders: Orders CT Cardiac Coronary Angio Today I25.10 - Atherosclerotic heart disease of [place] coronary artery without angina pectoris ECG 3 day holter monitor Today I47.10 - Supraventricular tachycardia, unspecified, R00.2 - Palpitations CA echo transthoracic complete Today I25.10 - Atherosclerotic heart disease of [place] coronary artery without angina pectoris Basic Metabolic Panel Today I25.10 - Atherosclerotic heart disease of [place] coronary artery without angina pectoris Coding Level of Care Code New Pt Level 4 (62202) Diagnoses Preoperative cardiovascular examination Z01.810 Polysubstance abuse F19.10 Supraventricular tachycardia I47.10 Atherosclerotic cardiovascular disease I25.10 CPT Codes EKG - CPT: 35758-[id number], Complete ([id number])
[2023-09-18 08:19] VITALS: BP 144/82; PULSE 60; BMI 27.9
== END 2023-09-18 09:00 | disposition home or self-care (01) ==
PROVIDERS: PCP Nurse Practitioner Family; Visit Provider Internal Medicine
DX: Z01.810 Encounter for preprocedural cardiovascular examination (principal); F19.10 Other psychoactive substance abuse, uncomplicated; I47.10 Supraventricular tachycardia, unspecified; I25.10 Atherosclerotic heart disease of native coronary artery without angina pectoris
CPT/HCPCS: 93010; 99204

== ENCOUNTER → 2023-09-18 08:05 | Outpatient (BNVA) | payer OTHER, SELFPAY | PROVIDERS: PCP Nurse Practitioner Family; Visit Provider Internal Medicine | DX: Z01.810 Encounter for preprocedural cardiovascular examination (principal); I47.10 Supraventricular tachycardia, unspecified; I25.10 Atherosclerotic heart disease of native coronary artery without angina pectoris; F19.10 Other psychoactive substance abuse, uncomplicated | CPT/HCPCS: 93005 ==

== ENCOUNTER 2023-10-02 08:34 | Outpatient (AMB) | payer OTHER, SELFPAY ==
--- NOTE | 2023-10-02 08:42 | A.OFFPC_ITS ---
Vital Signs 10/02/23 08:43 Height 6 ft Weight 206 lb BMI 27.9 BP 122/74 Blood Pressure Location Rt brachial Position Sitting Pulse 72 Pulse Source Pulse Oximeter Pulse Oximetry (%) 93 Oxygen Delivery Method Room Air Intake Visit Reasons: 4 Month follow up Intake Note: Patient here for HTN f/u Allergies No Known Allergies [No Known Allergies*] Allergy (Verified 10/02/23 08:43) Medication List - Last Reconciled 10/02/23 by JEANETH Avila albuterol sulfate 90 mcg/actuation (Ventolin HFA) 2 puffs inhalation Q6H PRN amlodipine 10 mg PO DAILY 90 days clonidine HCl 0.2 mg PO TID 90 days diltiazem HCl 60 mg PO BID 90 days fluticasone propion-salmeterol 250-50 mcg/dose (Advair Diskus) 1 inh inhalation BID hydrochlorothiazide 25 mg PO DAILY omeprazole 20 mg PO DAILY Tobacco use date assessed: 05/22/23 Dental Screening Dental Screen Date: 05/22/23 HPI 4 Month follow up HPI Details HTN: Blood pressure is stable, managed with amlodipine 10mg, clonidine 0.2mg tid, diltiazem 60mg, and hydrochlorothiazide 25mg. Denies chest pain, shortness of breath, headache, dizziness, and blurred vision. Pt has an umbilical hernia. Will refer to general surgery. Pt is awaiting cardiac clearance for colon screen [facility] Medical History Colon cancer screening declined Heroin abuse Substance abuse Right femoral fracture Surgical History No pertinent past surgical history Family History Father No problems noted. Family/Other No problems noted. Other Substance use disorder Social History Housing: House Alcohol intake: former Patient Tobacco Use Status: Current everyday Tobacco user Cigarette Packs Per Day: 1 Years Smoked: 44 (onset 15) e-Cigarette/Vaping Use: Never Used Second Hand Smoke Exposure: No Current occupational status: employed Current occupation: [employer] Current occupational exposures/hazards: Yes Cognitive needs: No Hearing needs: No Vision needs: No Questionnaire PHQ-9 Over the last 2 weeks, how often have you been bothered by any of the following problems? 1. Little interest or pleasure in doing things: several days 2. Feeling down, depressed, or hopeless: several days 3. Trouble falling or staying asleep, or sleeping too much: several days 4. Feeling tired or having little energy: not at all 5. Poor appetite or overeating: several days 6. Feeling bad about yourself - or that you are a failure or have let yourself or your family down: not at all 7. Trouble concentrating on things, such as reading the newspaper or watching television: not at all 8. Moving or speaking so slowly that other people could have noticed. Or the opposite - being so fidgety or restless that you have been moving around a lot more than usual: not at all 9. Thoughts that you would be better off or of hurting yourself in some way: not at all Total score: 4 Depression Screening Interpretation: Negative Depression Screening Done: Yes 26527 - PHQ-9 Billing: Yes Source: Developed by Drs. Dillon Hamilton, Evelyn March, Christian Simon and colleagues, with an educational alicia from [employer]. Thrive Questionnaire Date Thrive assessed: 10/02/23 I am a: Patient What is your living situation today?: I have a steady place to live Within the past 12 months, did the food you bought not last and you didn't have the money to get more?: Never true Within the past 12 months, did you worry whether your food would run out before you got money to buy more?: Never true Do you have trouble paying for medicines?: No Do you have trouble getting transportation to medical appointments?: No Do you have trouble paying your heating and electricity bill?: No Do you have trouble taking care of your child, family member or friend?: No Do you have trouble with day-to-day activities such as bathing, preparing meals, shopping, managing finances, etc.?: No Are you currently unemployed and looking for a job?: No Are you interested in more education?: No Please select the resources that you would like help with: Housing/Penitentiary Currently or been in a relationship where the following occur: No concerns reported THRIVE Score: 0 AUDIT C Alcohol Use Questionnaire (AUDIT-C) 1. How often do you have a drink containing alcohol?: Never Total Score: 0 NAMITA-7 AMB Questionnaire NAMITA-7 Date NAMITA - 7 assessed: 10/02/23 Feeling nervous, anxious, or on edge: 0 = Not at all Not being able to stop or control worryin = Not at all Worrying too much about different things: 1 = Several days Trouble relaxin = Not at all Being so restless that it is hard to sit still: 0 = Not at all Becoming easily annoyed or irritable: 0 = Not at all Feeling afraid as if something awful might happen: 0 = Not at all Total NAMITA-7 score (0-4 normal; 5-9 mild; 10-14 moderate; 15-21 severe): 1 Source: Developed by Drs. Dillon Hamilton, Evelyn March, Christian Simon and colleagues, with an educational alicia from [employer]. NAMITA-7 Assessment Billing NAMITA-7 Assessment Tool: NAMITA-7 Assessment 91398 Review of Systems Const Reports as per HPI Physical exam (Primary Care) Vital Signs: Last Vital Signs Pulse 72 10/02/23 08:43 BP 122/74 10/02/23 08:43 Pulse Ox 93 10/02/23 08:43 Oxygen Delivery Method Room Air 10/02/23 08:43 BMI result Body Mass Index 27.9 Tobacco/Smoking Status: Tobacco use Status Tobacco use date assessed 05/22/23 10/02/23 08:45 Patient Tobacco Use Status Current everyday Tobacco 10/02/23 08:45 e-Cigarette/Vaping Use Never Used 10/02/23 08:45 PHQ-9: PHQ-9 Score PHQ-9: Total score 4 10/02/23 09:00 Depression Screening Interpretation: Negative Thrive Assessment: Date of Thrive Assessment Date Thrive assessed 10/02/23 10/02/23 08:45 Currently or been in a relationship where the following occur: No concerns reported Const General: cooperative Orientation/consciousness: patient oriented x3 Resp Effort & Inspection: normal respiratory effort Auscultation: diminished lung sounds (though moving air) Cardio Rate: regular rate Rhythm: regular rhythm Heart sounds: S1 normal heart sound present, S2 normal heart sound present and Murmur heart sound present systolic GI Palpation (GI): Hernia present umbilical Neuro General: patient oriented x3 Psych Appearance: grossly normal Mental Status: mental status grossly normal Speech and movement: Normal speech and movement present Affect: normal affect Attitude: cooperative Thought process: Normal thought process present Thought content: Normal thought content present Insight: Good insight present (Psych) Judgement: Good judgement present (Psych) Assessment and Plan Assessment & Plan (1) Umbilical hernia: Code(s): K42.9 - Umbilical hernia without obstruction or gangrene Plan: Referred to general surgery (2) HTN (hypertension): Code(s): I10 - Essential (primary) hypertension Plan: Stable, labs ordered (3) Screening PSA (prostate specific antigen): Code(s): Z12.5 - Encounter for screening for malignant neoplasm of prostate Plan The patient agreed to the use of a center medical and lab director for this encounter. Scribed for JEANETH Chaves by Luna Anderson center medical and lab director, on 10/02/2023 at 09:00 EST. Orders: Orders Complete Blood Count Auto Diff Today I10 - Essential (primary) hypertension, K42.9 - Umbilical hernia without obstruction or gangrene Comprehensive [place]. Panel Fast Today I10 - Essential (primary) hypertension, K42.9 - Umbilical hernia without obstruction or gangrene UA CC w/rflx Micro + Cult Today I10 - Essential (primary) hypertension, K42.9 - Umbilical hernia without obstruction or gangrene Prostate Specific Antigen Scr Today Z12.5 - Encounter for screening for malignant neoplasm of prostate TSH reflex Free T4 Today I10 - Essential (primary) hypertension, K42.9 - Umbilical hernia without obstruction or gangrene Lipid Panel Today I10 - Essential (primary) hypertension, K42.9 - Umbilical hernia without obstruction or gangrene Referrals General Surgery Referral K42.9 - Umbilical hernia without obstruction or gangrene Medications: New fluticasone propion-salmeterol 250-50 mcg/dose (Advair Diskus) 1 inh inhalation BID 60 ea 0RF Refilled omeprazole 20 mg PO DAILY 90 caps 0RF albuterol sulfate 90 mcg/actuation (Ventolin HFA) 2 puffs inhalation Q6H PRN 8.5 grams 3RF shortness of breath or wheezing Coding Level of Care Code Est Pt Level 3 (09530) Diagnoses Umbilical hernia K42.9 HTN (hypertension) I10 Screening PSA (prostate specific antigen) Z12.5 Additional Codes NAMITA-7 Assessment Billing - NAMITA-7 Assessment Tool: NAMITA-7 Assessment 03479 ([id number])
[2023-10-02 08:43] VITALS: BP 122/74; PULSE 72; O2SAT 93; BMI 27.9
== END 2023-10-02 09:11 | disposition home or self-care (01) ==
PROVIDERS: PCP Nurse Practitioner Family; Visit Provider Nurse Practitioner Family
DX: I10 Essential (primary) hypertension (principal); K42.9 Umbilical hernia without obstruction or gangrene; Z12.5 Encounter for screening for malignant neoplasm of prostate
CPT/HCPCS: 99213

== ENCOUNTER 2023-10-14 08:06 | Outpatient (AMB) | payer OTHER, SELFPAY ==
--- NOTE | 2023-10-14 08:09 | MHC.OFFWIV ---
Intake Vital Signs 10/14/23 08:10 Height 6 ft Weight 205 lb BMI 27.8 BP 138/80 Blood Pressure Location Rt brachial Position Sitting Pulse 81 Pulse Source Pulse Oximeter Pulse Oximetry (%) 98 Oxygen Delivery Method Room Air Intake Visit Reasons: EP Severe AB Pain Intake Note: Patient here for severe abdominal pain. pt states he had spaghetti looking stuff in his stool, blood in stool, mucus coming out and bloating. Patient Tobacco Use Status: Current everyday Tobacco user Allergies No Known Allergies [No Known Allergies*] Allergy (Verified 10/14/23 08:11) Do you need a note to return to daycare/school/sports/work: No HPI HPI Comments History of Present Illness Details Patient is a 62-year-old male complaining of severe abdominal pain which has been getting worse over the last 2 days. He states he has noticed blood in his stool intermittently since April. He states that he had 2 bowel movements for the last 2 days or he has noticed padgett warm like structures in his stool. He denies any fevers, history of diverticulosis. He states the pain is worse near his belt line. [facility] Medical History (Updated 10/14/23 @ 08:26 by Nicole Corcoran PA-C) SVT (supraventricular tachycardia) Palpitations Adrenal nodule Pulmonary nodules Depression HTN (hypertension) COPD (chronic obstructive pulmonary disease) Atherosclerotic cardiovascular disease Colon cancer screening declined Substance abuse Surgical History (Updated 10/03/23 @ 11:39 by Nova Dixon RN) History of open reduction and internal fixation (ORIF) procedure Family History Father No problems noted. Family/Other No problems noted. Other Substance use disorder Social History Housing: House Alcohol intake: former Patient Tobacco Use Status: Current everyday Tobacco user Cigarette Packs Per Day: 1 Years Smoked: 44 (onset 15) e-Cigarette/Vaping Use: Never Used Second Hand Smoke Exposure: No Current occupational status: employed Current occupation: [employer] Current occupational exposures/hazards: Yes Cognitive needs: No Hearing needs: No Vision needs: No Review of Systems Const All systems reviewed & are unremarkable except as noted in HPI and below Physical Exam Vital Signs: Last Vital Signs Pulse 81 10/14/23 08:10 BP 138/80 10/14/23 08:10 Pulse Ox 98 10/14/23 08:10 Oxygen Delivery Method Room Air 10/14/23 08:10 BMI result Body Mass Index 27.8 Const General: cooperative, healthy appearing, comfortable, no acute distress and well developed Orientation/consciousness: patient oriented x3 Limitations: no limitations HEENT Head: Yes normal to inspection Eyes General: appearance normal, both eyes and all related structures Neck Neck: Yes normal visual inspection and Yes full ROM Resp Effort & Inspection: normal respiratory effort and able to speak in complete sentences GI Inspection: Yes normal to inspection Palpation (GI): Soft to palpation and Tenderness to palpation present (GI) periumbilically and suprapubicly Skin General skin exam: no rashes or lesions noted Neuro General: patient oriented x3 Extrem General: Yes normal to inspection Assessment & Plan Assessment & Plan (1) Abdominal pain: Code(s): R10.9 - Unspecified abdominal pain Qualifiers: Abdominal location: lower abdomen, unspecified Qualified Code(s): R10.30 - Lower abdominal pain, unspecified Plan: Sent to [facility] ED for thorough workup, called with expect Plan see above Coding Level of Care Code Est Pt Level 5 (61319) Diagnoses Lower abdominal pain R10.30 Abdominal location: lower abdomen, unspecified
[2023-10-14 08:10] VITALS: BP 138/80; PULSE 81; O2SAT 98; BMI 27.8
== END 2023-10-14 08:30 | disposition home or self-care (01) ==
PROVIDERS: PCP Nurse Practitioner Family; Visit Provider Physician Assistant
DX: R10.30 Lower abdominal pain, unspecified (principal)
CPT/HCPCS: 99214

== ENCOUNTER 2023-10-14 08:41 | Emergency (ER) | payer OTHER, SELFPAY ==
--- NOTE | ~2023-10-14 | CT_ITS ---
EXAMINATION: CT ABDOMEN AND PELVIS WITH CONTRAST CLINICAL INFORMATION: Lower abdominal pain and bloating COMPARISON: 03/28/2023 TECHNIQUE: Multidetector volumetric images were obtained from the superior aspect of the liver through the pubic symphysis following administration 85 mL of Omnipaque 350 intravenous contrast. Sagittal and coronal reformatted images were obtained on the technologist's workstation. Oral contrast: No This CT examination was performed using dose optimization techniques as appropriate, variously including the following: *Automated exposure control *Adjustment of mA and/or kV according to patient size (this includes techniques or standardized protocols for targeted exams where dose is matched to indication/reason for exam; i.e. extremities or head) *Use of iterative reconstruction technique DLP: 667 mGy-cm FINDINGS: MAILROOM MANAGER: Fecal retention. Scoliosis. Phleboliths. Right hip ORIF LUNG BASES: The visualized lung bases are unremarkable. LIVER, GALLBLADDER, AND BILIARY TREE: The liver is normal in size, shape, and attenuation. No focal hepatic lesion or biliary ductal dilatation is present. The gallbladder is unremarkable with no evidence of radiopaque gallstones, gallbladder wall thickening, or obvious pericholecystic inflammatory changes. PANCREAS: Unremarkable. SPLEEN: Unremarkable. ADRENAL GLANDS: No change persistently enlarged left adrenal gland measuring 3.7 cm. KIDNEYS AND URETERS: The kidneys are normal in size, shape, and attenuation. Left kidney is unremarkable. Mild right intrarenal collecting system prominence. Mild right ureteral dilatation down to 6 mm distal right ureteral calculus. Distal right periureteral stranding. BLADDER: Distended. GASTROINTESTINAL TRACT: Decompressed stomach. Nonobstructive bowel pattern. Unremarkable terminal ileum and appendix. Moderate fecal retention, hard stool in the rectum. Diverticulosis without diverticulitis. ABDOMINAL WALL: Small fat filled umbilical and inguinal hernias. LYMPH NODES: Normal. VASCULAR: Atherosclerotic calcifications nonaneurysmal aorta. Normal caliber inferior vena cava. Patent portal system. PELVIC VISCERA: Prostate calcifications and phleboliths. OSSEOUS STRUCTURES: Multilevel degenerative changes severe L4-L5 spinal canal and neuroforaminal narrowings. CT/CT abdomen pelvis w IV con IMPRESSION: 6 mm partially obstructing distal right ureteral calculus of with mild hydroureter and periureteral stranding. Distended urinary bladder. Stable enlarged left adrenal gland. Severe L4-L5 spinal canal and neuroforaminal narrowings. Fleischner guidelines were followed.
[2023-10-14 08:54] VITALS: BP 132/73; PULSE 73; RESP 18; TEMP 36.6; O2SAT 95; BMI 27.8
[2023-10-14 09:54] LABS: MANUAL DIFF FLAG NO
[2023-10-14 09:55] LABS: Basophils Absolute Auto 0.1 X10*3/uL (0.0-0.2); Basophils Percent Auto 0.7 % (0-2); Eosinophils Absolute Auto 0.1 X10*3/uL (0.0-0.4); Eosinophils Percent Auto 0.5 % (0-4); Hematocrit 42.8 % (42.0-52.0); Hemoglobin 14.3 g/dl (14.0-18.0); Imm Gran Abs Auto 0.05 X10*3/uL (0.00-0.03); Imm Gran Pct Auto 0.4 % (0.0-0.4); Lymphocytes Absolute Auto 1.4 X10*3/uL (1.2-4.9); Lymphocytes Percent Auto 11.1 % (20-40); Mean Corpuscular HGB Conc 33.4 g/dl (31.0-36.0); Mean Corpuscular Hemoglobin 28.4 pg (27.0-33.0); Mean Corpuscular Volume 85.1 fL (80.0-98.0); Mean Platelet Volume 9.6 fL (9.4-12.4); Monocytes Absolute Auto 0.7 X10*3/uL (0.1-1.2); Monocytes Percent Auto 5.6 % (2-11); Neutrophils Percent Auto 81.7 % (45-73); Platelet Count 335 X10*3/uL (160-400); Red Blood Count 5.03 X10*6/uL (4.60-5.80); Red Cell Distribution Width 13.1 % (11.0-16.0); White Blood Count 12.3 X10*3/uL (4.8-10.8)
[2023-10-14 10:01] LABS: INTERNATIONAL NORM RATIO 0.9 (0.9-1.1); Prothrombin Time 11.3 SEC (11.1-13.3)
--- NOTE | 2023-10-14 10:01 | ED_ITS ---
HPI - Abdominal Pain General Chief Complaint: Abdominal Pain Stated Complaint: abd pain Time Seen by Provider: 10/14/23 09:53 Source: patient and RN notes reviewed Mode of arrival: ambulatory Limitations: no limitations History of Present Illness ED Provider: Leesa Lucas PA-C HPI narrative: This is a 62-year-old male, with a hx of COPD, HTN, SVT, who presents emergency department with complaints of ongoing abdominal pain since April, worsening over the last several days. Patient states that he noticed slight blood in his stool 2 days ago, as well as padgett ?spaghetti like appearing strings in his stool which he thinks is worms. He has attempted to follow-up with his primary care physician to get a colonoscopy however has been awaiting cardiology clearance in order to do so. He has never had a colonoscopy before. Denies any night sweats or changes in weight. He endorses constipation, no diarrhea. No fevers, chills, chest pain, shortness of breath. Denies any recent travel. States that he does not typically eat out. No other complaints or concerns at this time MD elicited complaint: abdominal pain Pertinent past history: constipation Onset (ago): month(s) Pain Consistency: constant Location: RLQ and LLQ Severity: moderate Quality: aching and fullness Radiation: none Migration to: no migration Exacerbating factors: nothing Relieving factors: nothing Associated symptoms: constipation and hematochezia Related Data Home Medications ?Medication ?Instructions ?Recorded ?Confirmed albuterol sulfate 90 mcg/actuation 2 puff inhalation Q6H shortness of 10/14/23 10/14/23 aerosol inhaler (Ventolin HFA) breath or wheezing ibuprofen 400 mg tablet 400 mg PO DAILY PRN Pain 10/14/23 10/14/23 omeprazole 20 mg capsule,delayed 20 mg PO DAILY@0630 10/14/23 10/14/23 release Previous Rx's ?Medication ?Instructions ?Recorded diltiazem HCl 60 mg tablet 60 mg PO BID 90 days #180 tabs 04/03/23 clonidine HCl 0.2 mg tablet 0.2 mg PO TID 90 days #270 tabs 07/21/23 hydrochlorothiazide 25 mg tablet 25 mg PO DAILY #90 tabs 08/14/23 amlodipine 10 mg tablet 10 mg PO DAILY 90 days #90 tabs 08/22/23 Wixela Inhub 250 mcg-50 mcg/dose 1 inh inhalation BID #180 ea 10/09/23 powder for inhalation (fluticasone propion-salmeterol) cefuroxime axetil 500 mg tablet 500 mg PO BID 10 days #20 tabs 10/14/23 prednisone 20 mg tablet See Rx Instructions .Route 10/14/23 .COMPLEX #19 tabs tamsulosin 0.4 mg capsule (Flomax) 0.4 mg PO DAILY #20 caps 10/14/23 Allergies Allergy/AdvReac Type Severity Reaction Status Date / Time No Known Allergies Allergy Verified 10/14/23 08:55 [No Known Allergies*] Review of Systems Review of Systems Yes all other systems are reviewed and are negative Constitutional: Reports as per [facility] Past Medical History Medical History (Updated 10/14/23 @ 14:50 by EDI Breen) SVT (supraventricular tachycardia) Palpitations Adrenal nodule Pulmonary nodules Depression HTN (hypertension) COPD (chronic obstructive pulmonary disease) Atherosclerotic cardiovascular disease Colon cancer screening declined Substance abuse Surgical History (Updated 10/03/23 @ 11:39 by Nova Dixon RN) History of open reduction and internal fixation (ORIF) procedure Family History Family History Father No problems noted. Family/Other No problems noted. Other Substance use disorder Social History Social History Housing: House Alcohol intake: former Patient Tobacco Use Status: Current everyday Tobacco user Cigarette Packs Per Day: 1 Years Smoked: 44 (onset 15) e-Cigarette/Vaping Use: Never Used Second Hand Smoke Exposure: No Advance Directives: No Advance Directives Information Provided: Yes Current occupational status: employed Current occupation: [employer] Current occupational exposures/hazards: Yes Cognitive needs: No Hearing needs: No Vision needs: No Physical Exam ED Vital Signs: Vital Signs - 24 hr 10/14/23 08:54 10/14/23 10:37 10/14/23 15:17 Temperature 98 F 97.8 F 97.8 F Pulse Rate 73 69 69 Respiratory Rate 18 12 12 Blood Pressure 132/73 138/70 138/70 Pulse Oximetry 95 97 97 Oxygen Delivery Method Room Air Room Air Room Air BMI result Body Mass Index 27.8 Const General: cooperative, comfortable and no acute distress Orientation/consciousness: patient oriented x3 Limitations: no limitations HENMT Head: Yes normal to inspection, Yes normocephalic and Yes atraumatic Ears: hearing grossly normal bilaterally General nose exam: Normal external nose present Face and sinus: Yes normal facial exam Mouth: Normal oral and palatal mucosa present, oropharynx normal and moist mucous membranes Throat: Yes posterior oropharynx normal Eyes General: appearance normal, both eyes and all related structures Eyelids: Yes eyelids normal Conjunctivae: conjunctivae normal Sclerae: sclerae normal Pupils: Equal, round and reactive pupils present EOM: EOMs intact bilaterally Neck Neck: Yes normal visual inspection, Yes full ROM and Yes no lymphadenopathy Lymphatic: no lymphadenopathy noted Chest Chest palpation & inspection: normal inspection of the chest Resp Effort & Inspection: normal respiratory effort and able to speak in complete sentences Auscultation: clear to auscultation bilaterally, no crackles, no rales, no rhonchi and no wheezes Cardio Rate: regular rate Rhythm: regular rhythm Heart sounds: S1 normal heart sound present and S2 normal heart sound present GI Other: Abdomen is soft however distended, mild lower abdominal tenderness palpation throughout the entire lower abdomen. No rebound or guarding. Rectal examination performed with Re Vilchis RN present. Good rectal tone, light brown stool noted, no blood noted. Inspection: Yes normal to inspection General: Yes no CVA tenderness Back/Spine/Pelvis Back: no CVA tenderness Skin General skin exam: no rashes or lesions noted Trauma: no lacerations or abrasions Wounds: no wounds Neuro General: patient oriented x3 and moves all extremities Cranial nerves: Yes Equal, round and reactive pupils present Extrem General: Yes normal to inspection Right upper extremity: normal to inspection Left upper extremity: normal to inspection Right lower extremity: normal to inspection Left lower extremity: normal to inspection Course Reevaluation(s) Reevaluation #1: Patient is sleeping, resting comfortably. CT scan returns revealing a 6 mm partially obstructing distal right ureteral calculus with mild hydroureter and periureteral stranding. Discussed findings with patient. He has no history of kidney stones in the past. We will reach out to Dr. Weir for further recommendations. Time: 13:04 Reevaluation #2: Dr. Weir recommending to admit to Medicine, and he was started on tamsulosin and 20 mg, seeing if patient can passed stone. I discussed this with patient, he states that he is currently going through opioid withdrawal. He states that he typically uses 6 bags of heroin per day. He states that he does not want Suboxone, and is not currently on methadone. Addiction Medicine Services was consulted. Patient will be medicated with Ativan and morphine due to anxiety/agitation/pain and withdrawal like symptoms. Will discuss with Dr. Hdz, hospitalist for further management and transfer of care. Time: 13:27 Reevaluation #3: Peyton Lepe from addiction Medicine saw patient, started on methadone 20 mg. Advised to follow-up outpatient at the walk-in behavioral health clinic if patient would like to continue on methadone. Dr. Hdz came and evaluated patient, does not meet admission criteria at this time, may be able to passed kidney stone at home. He discussed case with Dr. Weir, will manage with prednisone taper, Ceftin, and flomax. Given strict return precautions. He understands agrees with plan. Patient stable for discharge. Time: 14:56 Medical Decision Making Medical Decision Making [facility] Narrative: This is a 62-year-old male who presents emergency department with complaints of lower abdominal pain over the last several months, worsening over the last several days. States that he noticed some padgett spaghetti like appearing objects in his stool, concerning for warmth. On arrival, vital signs within normal limits. He is nontoxic appearing, speaking in full sentences. Abdomen is distended, with tenderness palpation in the lower abdomen. Stool is light brown. Plan: labs, CT abdomen, morphine, stool Differential Diagnosis Differential Diagnoses: The differential diagnosis associated with the presentation includes Parasitic infection, gastritis, gastroenteritis, diverticulitis, diverticulosis, SBO Admission/Observation Consideration of admission/observation: Escalation of care including admission/observation considered Consult Healthcare Provider Management of the patient was discussed with: Hospitalist and Paleology Teacher Dr. Weir, urology See Dr. Hdz, hospitalist Lab Data [facility] Lab Attestation statement: I reviewed the patient's lab results. Slight leukocytosis at 12.3, no evidence of ROSEMARIE, chemistry within normal limits urine does not appear to be infected. Negative stool occult 10/14/23 09:47 10/14/23 09:47 Labs: Lab Results 10/14/23 10/14/23 10/14/23 Range/Units 09:47 10:30 11:48 WBC 12.3 H (4.8-10.8) X10*3/uL RBC 5.03 (4.60-5.80) X10*6/uL Hgb 14.3 (14.0-18.0) g/dl Hct 42.8 (42.0-52.0) % MCV 85.1 (80.0-98.0) fL MCH 28.4 (27.0-33.0) pg MCHC 33.4 (31.0-36.0) g/dl RDW 13.1 (11.0-16.0) % Plt Count 335 (160-400) X10*3/uL MPV 9.6 (9.4-12.4) fL Immature Gran % (Auto) 0.4 (0.0-0.4) % Neut % (Auto) 81.7 H (45-73) % Lymph % (Auto) 11.1 L (20-40) % Mcduffie % (Auto) 5.6 (2-11) % Eos % (Auto) 0.5 (0-4) % Baso % (Auto) 0.7 (0-2) % Lymph # (Auto) 1.4 (1.2-4.9) X10*3/uL Mcduffie # (Auto) 0.7 (0.1-1.2) X10*3/uL Eos # (Auto) 0.1 (0.0-0.4) X10*3/uL Baso # (Auto) 0.1 (0.0-0.2) X10*3/uL Abs Immat Gran (auto) 0.05 H (0.00-0.03) X10*3/uL Absolute Neuts (auto) 10.0 H (2.0-8.3) x10*3/uL Absolute Nucleated RBC 0.000 (0.0-0.012) X10*3/uL Nucleated RBC % (auto) 0.0 (0.0-0.2) /100WBC PT 11.3 (11.1-13.3) SEC INR 0.9 (0.9-1.1) Sodium 140 (135-145) mmol/L Potassium 4.7 (3.3-5.1) mmol/L Chloride 102 (96-108) mmol/L Carbon Dioxide 31 H (22-29) mmol/L Anion Gap 12 (12-20) BUN 12 (9-16) mg/dL Creatinine 0.87 (0.5-1.4) mg/dL Estim Creat Clear Calc 99.1 Estimated GFR > 60 Random Glucose 123 H (60-115) mg/dL Calcium 10.1 (8.4-10.2) mg/dL Magnesium 2.0 (1.6-2.6) mg/dL Total Bilirubin 0.2 (0.0-1.0) mg/dL Direct Bilirubin < 0.2 (0.0-0.5) mg/dL AST 18 (5-37) U/L ALT 27 (0-40) U/L Alkaline Phosphatase 99 (39-117) U/L Total Protein 8.0 (6.5-8.0) g/dL Albumin 4.5 (3.5-5.0) g/dL Lipase 12 (8-78) U/L Urine Color Yellow Urine Appearance Clear Urine pH 8.5 (5.0-9.0) Ur Specific [place] >= 1.030 H (1.005-1.025) Urine Protein Negative (Neg-Trace) mg/dL Urine Glucose (UA) Negative (Negative) mg/dL Urine Ketones Negative (Negative) mg/dL Urine Blood Negative (Negative) Urine Nitrite Negative (Negative) Ur Leukocyte Esterase Negative (Negative) Stool Occult Blood NEGATIVE (NEGATIVE) Radiology Impression Discussion of test interpretation with radiology: I have reviewed the radiologist's reading. Radiologist Impression: CT/CT abdomen pelvis w IV con IMPRESSION: 6 mm partially obstructing distal right ureteral calculus of with mild hydroureter and periureteral stranding. Distended urinary bladder. Stable enlarged left adrenal gland. Severe L4-L5 spinal canal and neuroforaminal narrowings. Fleischner guidelines were followed. Dictated By: Kamini Aparicio MD Signed By: <Electronically signed by Kamini Aparicio MD in OV> Medications Administered Discontinued Medications Generic Name Dose Route Start Last Admin Trade Name Freq PRN Reason Stop Dose Admin Iohexol 100 ml 10/14/23 10:59 10/14/23 10:59 Iohexol 350 Mg/Ml 100 Ml Infus..Btl IV 10/14/23 11:00 85 ml ONCE ONE Administration Lorazepam 1 mg 10/14/23 13:40 10/14/23 13:58 Lorazepam 2 Mg/Ml Vial IVPUSH 10/14/23 13:41 1 mg ONCE ONE Administration Methadone HCl 20 mg 10/14/23 14:10 10/14/23 14:45 Methadone Hcl 20 Mg/2 Ml Oral.Conc PO 10/14/23 14:11 20 mg ONCE ONE Administration Morphine Sulfate 4 mg 10/14/23 10:14 10/14/23 10:42 Morphine Sulfate 4 Mg/Ml Cartridge IVPUSH 10/14/23 10:15 4 mg ONCE ONE Administration Protocol Morphine Sulfate 4 mg 10/14/23 13:40 10/14/23 13:59 Morphine Sulfate 4 Mg/Ml Cartridge IVPUSH 10/14/23 13:41 4 mg ONCE ONE Administration Protocol Nicotine 21 mg 10/14/23 13:25 10/14/23 13:51 Nicotine 21 Mg Patch.Td24 TRANSDERMA 10/14/23 13:26 21 mg ONCE ONE Administration Prednisone 20 mg 10/14/23 13:26 10/14/23 13:51 Prednisone 20 Mg Tablet PO 10/14/23 13:27 20 mg ONCE ONE Administration Tamsulosin HCl 0.4 mg 10/14/23 13:26 10/14/23 13:51 Tamsulosin Hcl 0.4 Mg Capsule PO 10/14/23 13:27 0.4 mg ONCE ONE Administration Critical Care Time Critical Care Time Critical Care Time: Yes Total Critical Care Time: 35 Attestation: I have personally provided critical care time exclusive of time spent on separately billable procedures. Time includes review of lab data, radiology results, discussion with consultants, and monitoring for potential decompensation. Intervention performed as documented. Discharge Plan Discharge Clinical Impression: Calculus, ureteral Patient Disposition: Home, Self-Care Instructions: Ureteral Stones (ED) Additional Instructions: You were seen in the emergency room with complaints of abdominal pain. Were found to have a kidney stone on the right side. You may be able to pass this kidney stone at home. Please take prescribed medication as directed. I am placing you on a antibiotic, Ceftin 500 mg twice a day for the next 10 days. Please take prednisone 20 mg, take 3 tablets for 3 days, 2 tablets for 3 days, and 1 tablet for 3 days. Take Flomax 1 tablet once a day. Follow-up with Urology, call today to make an appointment. Drink plenty of fluids get plenty of rest. We also started you on methadone. Methadone is a medication used to help with opioid use disorder. Please follow-up with the addiction Medicine Services outpatient. You can walk in at [facility] on methadone. [facility], [address] [place] [address] tel:[phone] Clinic Hours Friday - Friday: 5:30 am - 1:30 pm Dosing Hours Friday - Friday: 5:45 am - 12 pm Friday & Friday: 7 am -10 am Walk-In Hours Friday, Friday & Friday: 6 am - 8 am Prescriptions: New cefuroxime axetil 500 mg tablet 500 mg PO BID 10 Days Qty: 20 0RF prednisone 20 mg tablet See Rx Instructions .ROUTE .COMPLEX Qty: 19 0RF Rx Instructions: 20 mg orally Take 3 tablets for 3 days, then take 2 tablets for 3 days, then take 1 tablet for 3 days. tamsulosin [Flomax] 0.4 mg capsule 0.4 mg PO DAILY Qty: 20 0RF No Action diltiazem HCl 60 mg tablet 60 mg PO BID 90 Days Qty: 180 1RF clonidine HCl 0.2 mg tablet 0.2 mg PO TID 90 Days Qty: 270 1RF hydrochlorothiazide 25 mg tablet 25 mg PO DAILY Qty: 90 1RF amlodipine 10 mg tablet 10 mg PO DAILY 90 Days Qty: 90 1RF fluticasone propion-salmeterol [Wixela Inhub] 250-50 mcg/dose blister with device 1 inh inhalation BID Qty: 180 1RF omeprazole 20 mg capsule,delayed release(DR/EC) 20 mg PO DAILY@0630 ibuprofen 400 mg Tablet 400 mg PO DAILY PRN (Reason: Pain) albuterol sulfate [Ventolin HFA] 90 mcg/actuation HFA aerosol inhaler 2 puff inhalation Q6H Interventions: ED Discharge Assessment Last Done: 10/14/23 15:17 Print Language: German
--- NOTE | 2023-10-14 10:13 | PC.NURSE ---
rectal exam performed by provider, will send sample to lab
[2023-10-14 10:37] VITALS: BP 138/70; PULSE 69; RESP 12; TEMP 36.6; O2SAT 97
[2023-10-14 10:38] LABS: Alanine Aminotransferase 27 U/L (0-40); Albumin Level 4.5 g/dL (3.5-5.0); Alkaline Phosphatase 99 U/L (39-117); Anion Gap 12 (12-20); Aspartate Amino Transferase 18 U/L (5-37); Bilirubin Direct < 0.2 mg/dL (0.0-0.5); Bilirubin Total 0.2 mg/dL (0.0-1.0); Blood Urea Nitrogen 12 mg/dL (9-16); Calcium 10.1 mg/dL (8.4-10.2); Carbon Dioxide 31 mmol/L (22-29); Chloride 102 mmol/L (96-108); Creatinine Clr Calc Pharmacy 99.1; Estimated Glomerular Filt Rate > 60; Glucose Random 123 mg/dL (60-115); Lipase 12 U/L (8-78); Potassium 4.7 mmol/L (3.3-5.1); Sodium 140 mmol/L (135-145)
[2023-10-14] MEDS: Morphine Sulfate 4 MG/ML CARTRIDGE IVPUSH ×2 (10:42→13:59)
[2023-10-14 10:45] LABS: OBS Int Ctl Valid YES; OBS1 NEGATIVE (NEGATIVE)
--- NOTE | 2023-10-14 10:45 | PC.NURSE ---
iv inserted, labs previously drawn, stool samples sent to lab, pt medicated per order, call parker within reach, will continue to monitor
--- NOTE | 2023-10-14 10:58 | PC.NURSE ---
pt to CT scan
[2023-10-14] MEDS: iohexoL 350 MG/ML 100 ML INFUS..BTL IV (10:59)
[2023-10-14 11:57] LABS: Appearance Urine Clear; Color Urine Yellow; Glucose Urine UA Negative (Negative); Leukocyte Esterase Urine Negative (Negative); Nitrite Urine Negative (Negative); PH 8.5 (5.0-9.0); Specific Gravity - Urine >= 1.030 (1.005-1.025); Urine Blood Negative (Negative); Urine Ketones Negative (Negative); Urine Protein Negative (Neg-Trace)
[2023-10-14] MEDS: predniSONE 20 MG TABLET PO (13:51)
[2023-10-14] MEDS: Nicotine 21 MG PATCH.TD24 TRANSDERMA (13:51)
[2023-10-14] MEDS: Tamsulosin HCL 0.4 MG CAPSULE PO (13:51)
[2023-10-14] MEDS: LORazepam 2 MG/ML VIAL 1 MG IVPUSH (13:58)
--- NOTE | 2023-10-14 14:37 | PM.EVENT ---
Event Note Date of Service: 10/14/23 Event Note: Discussed with Pt. States he does not want to be admitted. Initial recommendation by Dr. Weir was prednisone Flomax and wait for the stone to pass; call placed to Dr. Weir who agreed patient could be managed as an outpatient because he would not do any invasive procedures until the stone had time to pass with the medical therapies. Given such patient will be discharged on a course of Ceftin prednisone taper and Flomax. He can follow up with Dr. Weir as an outpatient Time Spent With Patient Time: Total time managing care of this patient today ____ minutes.
[2023-10-14] MEDS: methADONE HCl 20 MG/2 ML ORAL.CONC PO (14:45)
[2023-10-14 15:17] VITALS: BP 138/70; PULSE 69; RESP 12; TEMP 36.6; O2SAT 97
--- NOTE | 2023-10-14 15:38 | PHA.MEDREC ---
Addendum entered by Mariposa Rivas RPh 10/14/23 16:25: Reviewed by [facility]. Original Note: Pharmacy Consult ? Medication Reconciliation Pharmacy has completed the medication reconciliation. Spoke to patient to confirm med list. Patient states he should be on Wixela Inhub 250mcg-50mcg 1 inhalation bid, however hasn't been on it for a few months due to shortage at his pharmacy. left on med list and will notify the
== END 2023-10-14 15:17 | disposition home or self-care (01) ==
PROVIDERS: Physician Assistant Medical; Emergency Provider Emergency Medicine; PCP Nurse Practitioner Family
DX: N13.2 Hydronephrosis with renal and ureteral calculous obstruction (principal)
CPT/HCPCS: 36415; 74177; 80048; 80076; 81003; 82272; 83690; 83735; 85025; 85610; 87177; 87209; 96374; 96375; 96376; 99284; J2060; J2270; Q9967

== ENCOUNTER → 2023-10-28 07:40 | Outpatient (REF) | payer OTHER, SELFPAY ==
--- NOTE | 2023-10-28 07:44 | HM_ITS ---
* Total monitoring time 3 days. * Underlying rhythm is sinus with an average rate of 59/Min. * Rare supraventricular ectopy. Brief runs noted. Possibly atrial tachycardia. Less likely atrial flutter or fibrillation. * Rare ventricular ectopy. Rare couplets and triplets. * No significant pauses or AV blocks. * Patient marker used once, in association with ventricular triplet and atrial runs. * Diary include shortness of breath, used inhaler while climbing stairs. MTDD
--- NOTE | 2023-10-28 07:44 | CA_ITS ---
Transthoracic Echocardiogram Patient (Last, First, Middle): Hermes Trujillo D Gender: Male Date of : 1960 Age: 63 Procedure Date: 10/28/2023 Procedure Type: Transthoracic Echocardiogram Location: OP Height: 182.88 cm Weight: 92.99 kg BSA: 2.15 m2 Heart Rate: 65 bpm BP: 132 / 70 mmHg Solar Design Engineer: SB Referring MD: Jose Fitzpatrick MD Health Promoter: Raymon Baldwin MD Symptoms: I25.10 - Atherosclerotic heart disease of [place] coronary artery without... Study Quality: Adequate ECG Rhythm: Sinus Conclusions: - Essentially normal study Findings Left Ventricle Normal left ventricular size, thickness, and systolic function. The visually estimated ejection fraction is between 65-70%. Spectral Doppler is indicative of a normal filling pattern. Right Ventricle Normal right ventricular cavity size and systolic function. Atria Both atria are normal in size. There is no evidence of interatrial shunt. Aortic Valve Normal aortic valve structure and function. There is no aortic valve stenosis. There is no aortic valve regurgitation. Mitral Valve Normal mitral valve structure and function. There is trace mitral valve regurgitation. There is no mitral valve stenosis. Pulmonic Valve The pulmonic valve is likely normal. There is trace pulmonic valve regurgitation. Tricuspid Valve Normal tricuspid valve structure. Tricuspid regurgitation envelope is inadequate for calculation of right ventricular systolic pressure. Normal right atrial pressure. Great Vessels All visible segments of the aorta are normal in size. The pulmonary artery was not well visualized. There is no dilatation of the ascending aorta measuring 3.40 cm. Venous The inferior vena cava is normal in size and collapses greater than 50% with inspiration. Pericardium/Pleural There is no evidence of pericardial effusion. Prior Study Comparison No prior study available for comparison. Measurements 2D Linear Measurements IVSd: 1.22 0.6-0.9/0.6-1.0 cm LVIDd: 5.48 3.9-5.3/4.2-5.9 cm LVIDd Index: 2.55 2.4-3.2/2.2-3.1 cm/m2 LVIDs: 3.54 2.0-3.6 cm LVPWd: 0.86 0.7-1.1 cm LA Diam: 4.20 2.7-3.8/3.0-4.0 cm LAIDs Index: 1.95 1.5-2.3 cm/m2 LV Mass: 278.39 67-162/88-224 g LV Mass Index: 129.49 43-95/49-115 g/m2 LVOT Diam: 2.30 3.0+(-)1.3 cm 2D Systolic Function EF 4C: 67.40 >55% EF 2C: 63.70 >55% EF BiP: 67.20 >55% Mitral Valve MV Pk E: 0.93 MV PK A: 0.75 MV Decel Time: 180.00 E/A: 1.20 E'Lateral: 12.80 E'Medial: 7.07 E/E' Med: 13.20 E/E' Lat: 7.30 PHT: 53.00 MVA PHT: 4.15 Decel Morton: 5.15 Aortic Valve AoV Pk Cj: 1.39 AoV Pk Grad: 8.00 ALEJANDRA: 3.66 LVOT LVOT Pk Cj: 1.17 LVOT Mn Cj: 0.78 LVOT VTI: 0.26 LVOT Pk Grad: 5.00 LVOT Mn Grad: 3.00 LVOT Diam: 2.30 LVOT Area: 4.15 Diastolic Function MV Pk E: 0.93 MV Pk A: 0.75 E/A: 1.20 E'Medial: 7.07 E/E' Med: 13.20 E' Laterial: 12.80 E/E' Lat: 7.30 Right Ventricle TAPSE (mm): 23.00 TVS' Cj: 15.70 Tricuspid Valve RA Press: 3.00 Great Vessels Aorta Sinus of Valsalva: 3.50 2.0-3.5 cm Ao Asc: 3.40 2.1-3.4 cm Pulmonary Valve PV Pk Cj: 1.22 Peak PV Grad: 6.00 Updated in Other Vendor System with Status of Final Raymon Baldwin MD electronically signed on 10/28/2023 11:18:20 AM with status of Final
== END ==
LOC: HO.CARD 07:40
PROVIDERS: PCP Nurse Practitioner Family; Visit Provider Internal Medicine
DX: I25.10 Atherosclerotic heart disease of native coronary artery without angina pectoris (principal); I47.10 Supraventricular tachycardia, unspecified; R00.2 Palpitations
CPT/HCPCS: 93242; 93306

== ENCOUNTER → 2023-10-28 07:44 | Outpatient (BNV) | payer OTHER, SELFPAY | PROVIDERS: PCP Nurse Practitioner Family; Visit Provider Internal Medicine Cardiovascular Disease | DX: I47.10 Supraventricular tachycardia, unspecified (principal); R06.02 Shortness of breath | CPT/HCPCS: 93244; 93306 ==

== ENCOUNTER 2023-11-03 06:04 | Emergency (ER) | payer OTHER, SELFPAY ==
--- NOTE | ~2023-11-03 | CT_ITS ---
EXAMINATION: CT ABDOMEN AND PELVIS WITHOUT AND WITH CONTRAST CLINICAL INFORMATION: Reason for Exam melena, LLQ ttp. COMPARISON: 10/14/2023 TECHNIQUE: Multidetector volumetric imaging was performed of the abdomen and pelvis before and after the IV administration of 85 mL of Omnipaque 350 intravenous contrast. Sagittal and coronal reformatted images were obtained on the technologist's workstation. This CT examination was performed using dose optimization techniques as appropriate, variously including the following: *Automated exposure control *Adjustment of mA and/or kV according to patient size (this includes techniques or standardized protocols for targeted exams where dose is matched to indication/reason for exam; i.e. extremities or head) *Use of iterative reconstruction technique DLP: 1541 mGy-cm FINDINGS: LUNG BASES: The visualized lung bases are unremarkable. LIVER, GALLBLADDER, AND BILIARY TREE: The liver is normal in size, shape, and attenuation. No focal hepatic lesion or biliary ductal dilatation is present. The gallbladder is unremarkable with no evidence of radiopaque gallstones, gallbladder wall thickening, or obvious pericholecystic inflammatory changes. PANCREAS: Unremarkable SPLEEN: Unremarkable ADRENAL GLANDS: Thickened, nodular appearance of the left adrenal gland measuring up to approximately 3.7 x 1.6 cm with density consistent with a benign lipid rich adenoma. Additional benign adenoma of the right adrenal gland measuring approximately 1.2 cm. KIDNEYS AND URETERS: There is a distal right ureteral calculus measuring approximately 4 mm. This is located approximately 15 mm above the ureterovesicular junction and is more distal in location than on 10/14/2023. There is slight asymmetric prominence of the right renal pelvis, though postcontrast nephrograms appear symmetric. BLADDER: Moderately distended without significant wall thickening. GASTROINTESTINAL TRACT: No definite active gastrointestinal hemorrhage is seen. However, evaluation is suboptimal due to the presence of a moderate amount of hyperdense stool throughout most of the colon. No evidence of bowel obstruction or significant wall thickening. Colonic diverticulosis is noted without convincing diverticulitis. The appendix is unremarkable. No free fluid or free air is seen. ABDOMINAL WALL: Tiny fat-containing umbilical hernia. LYMPH NODES: Normal VASCULAR: There is atherosclerotic calcification along the aorta. PELVIC VISCERA: Unremarkable OSSEOUS STRUCTURES: Degenerative changes are noted in the spine. Partially visualized hardware in the right femur. CT/CT gi bleed abd pel wo/w IVcon IMPRESSION: 1. No definite active gastrointestinal hemorrhage, though evaluation is suboptimal due to the presence of a moderate amount of hyperdense stool throughout most of the colon. 2. Distal right ureteral calculus measuring 4 mm, more distal than on 10/14/2023. Slight asymmetric prominence of the right renal pelvis, though postcontrast nephrograms appear symmetric. Electronically signed by: Tim Bustillos MD 11/03/2023 09:58 AM EDT RP
[2023-11-03 06:06] VITALS: BP 150/93; PULSE 95; RESP 18; TEMP 36.5; O2SAT 98; BMI 27.9
[2023-11-03 06:20] LABS: MANUAL DIFF FLAG NO
[2023-11-03 06:30] LABS: Basophils Absolute Auto 0.1 X10*3/uL (0.0-0.2); Basophils Percent Auto 0.8 % (0-2); Eosinophils Absolute Auto 0.1 X10*3/uL (0.0-0.4); Eosinophils Percent Auto 1.1 % (0-4); Hemoglobin 14.5 g/dl (14.0-18.0); Imm Gran Abs Auto 0.06 X10*3/uL (0.00-0.03); Imm Gran Pct Auto 0.5 % (0.0-0.4); Lymphocytes Absolute Auto 2.5 X10*3/uL (1.2-4.9); Lymphocytes Percent Auto 22.4 % (20-40); Mean Corpuscular HGB Conc 33.7 g/dl (31.0-36.0); Mean Corpuscular Hemoglobin 28.2 pg (27.0-33.0); Mean Corpuscular Volume 83.7 fL (80.0-98.0); Mean Platelet Volume 9.1 fL (9.4-12.4); Monocytes Absolute Auto 0.7 X10*3/uL (0.1-1.2); Monocytes Percent Auto 6.2 % (2-11); Neutrophils Absolute Auto 7.8 x10*3/uL (2.0-8.3); Platelet Count 339 X10*3/uL (160-400); Red Blood Count 5.14 X10*6/uL (4.60-5.80); Red Cell Distribution Width 13.2 % (11.0-16.0); White Blood Count 11.3 X10*3/uL (4.8-10.8)
[2023-11-03 06:39] LABS: Alanine Aminotransferase 30 U/L (0-40); Albumin Level 4.1 g/dL (3.5-5.0); Alkaline Phosphatase 92 U/L (39-117); Anion Gap 15 (12-20); Aspartate Amino Transferase 17 U/L (5-37); Bilirubin Total 0.4 mg/dL (0.0-1.0); Blood Urea Nitrogen 10 mg/dL (9-16); Calcium 9.9 mg/dL (8.4-10.2); Carbon Dioxide 23 mmol/L (22-29); Chloride 104 mmol/L (96-108); Creatinine Clr Calc Pharmacy 105.8; Estimated Glomerular Filt Rate > 60; Glucose Random 143 mg/dL (60-115); Potassium 3.9 mmol/L (3.3-5.1); Sodium 138 mmol/L (135-145); Total Protein 7.6 g/dL (6.5-8.0)
[2023-11-03 06:51] VITALS: BP 160/69; PULSE 75; RESP 16; TEMP 36.6; O2SAT 95
[2023-11-03 07:26] LABS: Lipase 13 U/L (8-78); Magnesium 2.1 mg/dL (1.6-2.6)
--- NOTE | 2023-11-03 07:37 | ED.ABDPAIN ---
HPI - Abdominal Pain General Chief Complaint: Abdominal Pain Stated Complaint: abd pain Time Seen by Provider: 11/03/23 07:08 Source: patient, RN notes reviewed and old records reviewed Mode of arrival: ambulatory History of Present Illness ED Provider: Mckenna Harris PA-C HPI narrative: 63-year-old male with past medical history SVT, depression, HTN, COPD, ACS, substance abuse on methadone, presenting to the ED complaining of lower abdominal discomfort x yesterday with black stool noted. Denies taking anticoagulation. Denies fever, chills, nausea, vomiting. Admits to some constipation followed by diarrhea. Denies lightheadedness/dizziness, CP/SOB or lightheadedness/dizziness. Related Data Home Medications ?Medication ?Instructions ?Recorded ?Confirmed albuterol sulfate 90 mcg/actuation 2 puff inhalation Q6H shortness of 10/14/23 10/14/23 aerosol inhaler (Ventolin HFA) breath or wheezing ibuprofen 400 mg tablet 400 mg PO DAILY PRN Pain 10/14/23 10/14/23 omeprazole 20 mg capsule,delayed 20 mg PO DAILY@0630 10/14/23 10/14/23 release Previous Rx's ?Medication ?Instructions ?Recorded diltiazem HCl 60 mg tablet 60 mg PO BID 90 days #180 tabs 04/03/23 clonidine HCl 0.2 mg tablet 0.2 mg PO TID 90 days #270 tabs 07/21/23 hydrochlorothiazide 25 mg tablet 25 mg PO DAILY #90 tabs 08/14/23 amlodipine 10 mg tablet 10 mg PO DAILY 90 days #90 tabs 08/22/23 Wixela Inhub 250 mcg-50 mcg/dose 1 inh inhalation BID #180 ea 10/09/23 powder for inhalation (fluticasone propion-salmeterol) cefuroxime axetil 500 mg tablet 500 mg PO BID 10 days #20 tabs 10/14/23 prednisone 20 mg tablet See Rx Instructions .Route 10/14/23 .COMPLEX #19 tabs tamsulosin 0.4 mg capsule (Flomax) 0.4 mg PO DAILY #20 caps 10/14/23 ketorolac 10 mg tablet 10 mg PO TID PRN pain 5 days #15 11/03/23 tabs tamsulosin 0.4 mg capsule (Flomax) 0.4 mg PO DAILY #14 caps 11/03/23 Allergies Allergy/AdvReac Type Severity Reaction Status Date / Time No Known Allergies Allergy Verified 11/03/23 06:06 [No Known Allergies*] Review of Systems Review of Systems Yes all other systems are reviewed and are negative Constitutional: Reports as per [facility] Past Medical History Attestation statement: The following information was validated with the patient. Source: old records reviewed Medical History SVT (supraventricular tachycardia) Palpitations Adrenal nodule Pulmonary nodules Depression HTN (hypertension) COPD (chronic obstructive pulmonary disease) Atherosclerotic cardiovascular disease Colon cancer screening declined Substance abuse Surgical History History of open reduction and internal fixation (ORIF) procedure Family History Family History Father No problems noted. Family/Other No problems noted. Other Substance use disorder Social History Social History Housing: House Alcohol intake: former Patient Tobacco Use Status: Current everyday Tobacco user Cigarette Packs Per Day: 1 Years Smoked: 44 (onset 15) e-Cigarette/Vaping Use: Never Used Second Hand Smoke Exposure: No Advance Directives: No Advance Directives Information Provided: Yes Current occupational status: employed Current occupation: [employer] Current occupational exposures/hazards: Yes Cognitive needs: No Hearing needs: No Vision needs: No Physical Exam ED Vital Signs: Vital Signs - 24 hr 11/03/23 06:06 11/03/23 06:51 11/03/23 08:09 Temperature 97.7 F 97.8 F 97.7 F Pulse Rate 95 75 68 Respiratory Rate 18 16 14 Blood Pressure 150/93 H 160/69 H 139/75 Pulse Oximetry 98 95 94 Oxygen Delivery Method Room Air Room Air Room Air 11/03/23 08:21 11/03/23 12:16 Temperature 97.7 F Pulse Rate 68 Respiratory Rate 20 17 Blood Pressure 166/69 H Pulse Oximetry 95 Oxygen Delivery Method Room Air BMI result Body Mass Index 27.9 Const General: cooperative, healthy appearing, no acute distress and diaphoretic Orientation/consciousness: patient oriented x3 Limitations: no limitations HENMT Head: Yes normal to inspection and Yes atraumatic Ears: hearing grossly normal bilaterally General nose exam: Normal external nose present Face and sinus: Yes normal facial exam Eyes General: appearance normal, both eyes and all related structures EOM: EOMs intact bilaterally Neck Neck: Yes normal visual inspection and Yes no meningeal signs Resp Effort & Inspection: normal respiratory effort and no respiratory distress Auscultation: clear to auscultation bilaterally Cardio Rate: regular rate Heart sounds: S1 normal heart sound present and S2 normal heart sound present GI Inspection: Yes normal to inspection Palpation (GI): Soft to palpation, Tenderness to palpation present (GI) (lower abdominal), no guarding and not rigid General: Yes no CVA tenderness Back/Spine/Pelvis Back: no CVA tenderness Skin Rashes: no rashes Wounds: no wounds Neuro General: patient oriented x3, tone normal and no meningeal signs Cranial nerves: Yes CN's II-XII intact bilaterally Gait exam (Neuro): Normal gait present Extrem General: Yes normal to inspection Course Course Course Narrative: -1004--no leukocytosis. H and H stable. Labs otherwise reassuring. -UA not infected -occult stool negative >> patient does admit to taking Pepto-Bismol a few days ago CT gi bleed abd pel wo/w IVcon IMPRESSION: 1. No definite active gastrointestinal hemorrhage, though evaluation is suboptimal due to the presence of a moderate amount of hyperdense stool throughout most of the colon. 2. Distal right ureteral calculus measuring 4 mm, more distal than on 10/14/2023. Slight asymmetric prominence of the right renal pelvis, though postcontrast nephrograms appear symmetric > patient is still diaphoretic and in pain. Will consult Urology. Patient was seen in our ED on 10/13 diagnosed with 6 mm partially obstructing stone, admission was recommended at that time however patient refused -1139--consulted Urology, Dr. Bell recommended giving patient additional fluids, additional Toradol, PO Prednisone x1 dose and Dilaudid for pain control -1314--patient's pain improved after medications given in the ED. Tolerating p.o. Feels safe for discharge home at this time with close Urology follow-up. Results discussed with patient including worrisome signs and symptoms and strict return precautions, and when to return to the emergency department. They verbalized understanding and feel safe for discharge at this time. Medical Decision Making Medical Decision Making MDM Narrative: 63-year-old male with past medical history SVT, depression, HTN, COPD, ACS, substance abuse on methadone, presenting to the ED complaining of lower abdominal discomfort x yesterday with black stool noted. On exam vital signs stable, diaphoretic, appears uncomfortable, abdomen soft with LLQ tenderness, no rebound or guarding. Concern for GI bleed vs colitis/diverticulitis. Rule out anemia. Lower suspicion for appendicitis, pancreatitis or cholecystitis/lithiasis. Unlikely AAA/dissection Plan: Labs, UA, occult stool, CT AP, pain management, re-evaluate Please refer to course for remaining clinical decision making, interpretation of labs/imaging results, and discussions with consultants and/or family members. Differential Diagnosis Differential Diagnoses: The differential diagnosis associated with the presentation includes As above Admission/Observation Consideration of admission/observation: Escalation of care including admission/observation considered Consult Healthcare Provider Management of the patient was discussed with: Machine Molder (Urology) Lab Data [facility] Lab Attestation statement: I reviewed the patient's lab results. 11/03/23 06:15 11/03/23 06:15 Labs: Lab Results 11/03/23 11/03/23 11/03/23 Range/Units 06:15 08:11 10:36 WBC 11.3 H (4.8-10.8) X10*3/uL RBC 5.14 (4.60-5.80) X10*6/uL Hgb 14.5 (14.0-18.0) g/dl Hct 43.0 (42.0-52.0) % MCV 83.7 (80.0-98.0) fL MCH 28.2 (27.0-33.0) pg MCHC 33.7 (31.0-36.0) g/dl RDW 13.2 (11.0-16.0) % Plt Count 339 (160-400) X10*3/uL MPV 9.1 L (9.4-12.4) fL Immature Gran % (Auto) 0.5 H (0.0-0.4) % Neut % (Auto) 69.0 (45-73) % Lymph % (Auto) 22.4 (20-40) % [place] % (Auto) 6.2 (2-11) % Eos % (Auto) 1.1 (0-4) % Baso % (Auto) 0.8 (0-2) % Lymph # (Auto) 2.5 (1.2-4.9) X10*3/uL [place] # (Auto) 0.7 (0.1-1.2) X10*3/uL Eos # (Auto) 0.1 (0.0-0.4) X10*3/uL Baso # (Auto) 0.1 (0.0-0.2) X10*3/uL Abs Immat Gran (auto) 0.06 H (0.00-0.03) X10*3/uL Absolute Neuts (auto) 7.8 (2.0-8.3) x10*3/uL Absolute Nucleated RBC 0.000 (0.0-0.012) X10*3/uL Nucleated RBC % (auto) 0.0 (0.0-0.2) /100WBC Sodium 138 (135-145) mmol/L Potassium 3.9 (3.3-5.1) mmol/L Chloride 104 (96-108) mmol/L Carbon Dioxide 23 (22-29) mmol/L Anion Gap 15 (12-20) BUN 10 (9-16) mg/dL Creatinine 0.87 (0.5-1.4) mg/dL Estim Creat Clear Calc 105.8 Estimated GFR > 60 Random Glucose 143 H (60-115) mg/dL Calcium 9.9 (8.4-10.2) mg/dL Magnesium 2.1 (1.6-2.6) mg/dL Total Bilirubin 0.4 (0.0-1.0) mg/dL AST 17 (5-37) U/L ALT 30 (0-40) U/L Alkaline Phosphatase 92 (39-117) U/L Total Protein 7.6 (6.5-8.0) g/dL Albumin 4.1 (3.5-5.0) g/dL Lipase 13 (8-78) U/L Urine Color Dark Yellow Urine Appearance Clear Urine pH 8.0 (5.0-9.0) Ur Specific [place] 1.020 (1.005-1.025) Urine Protein 30 (1+) H (Neg-Trace) mg/dL Urine Glucose (UA) Negative (Negative) mg/dL Urine Ketones Trace (Negative) mg/dL Urine Blood Trace H (Negative) Urine Nitrite Negative (Negative) Ur Leukocyte Esterase Small (1+) H (Negative) Urine RBC 0-2 (0-2) /HPF Urine WBC 0-5 (0-5) /HPF Ur Squamous Epith Cells 0-2 (0-2) /HPF Urine Bacteria None Seen (None Seen) Hyaline Casts 11-20 (0-2) /LPF Stool Occult Blood NEGATIVE (NEGATIVE) Independent Interpretation I performed an independent interpretation of an: CT Scan Radiology Impression Discussion of test interpretation with radiology: I have reviewed the radiologist's reading. External Record Review External record reviewed: Inpatient record, Office record, Outpatient record, Prior outpatient labs, Prior outpatient radiology, Primary care record and Outside ED record Tests considered The following testing was considered but not selected: As above Prescription Management I considered prescription management with: Pain Medication Chronic Conditions Patient?s care impacted by: Hypertension and Other Medications Administered Discontinued Medications Generic Name Dose Route Start Last Admin Trade Name Freq PRN Reason Stop Dose Admin Sodium Chloride 1,000 mls @ 999 mls/hr 11/03/23 07:15 11/03/23 11:56 Ns IV 11/03/23 08:15 Infused .Q1H1M AMANDA Infusion Sodium Chloride 1,000 mls @ 999 mls/hr 11/03/23 11:45 11/03/23 11:58 Ns IV 11/03/23 12:45 999 mls/hr .Q1H1M AMANDA Administration Iohexol 100 ml 11/03/23 09:18 11/03/23 09:18 Iohexol 350 Mg/Ml 100 Ml Infus..Btl IV 11/03/23 09:19 85 ml ONCE ONE Administration Ketorolac Tromethamine 15 mg 11/03/23 10:52 11/03/23 11:48 Ketorolac Tromethamine 15 Mg/Ml Vial IVPUSH 11/03/23 10:53 15 mg ONCE ONE Administration Morphine Sulfate 2 mg 11/03/23 07:11 11/03/23 08:21 Morphine Sulfate 2 Mg/Ml Cartridge IVPUSH 11/03/23 07:12 2 mg ONCE ONE Administration Protocol Morphine Sulfate 4 mg 11/03/23 10:15 11/03/23 11:47 Morphine Sulfate 4 Mg/Ml Cartridge IVPUSH 11/03/23 10:16 4 mg ONCE ONE Administration Protocol Prednisone 20 mg 11/03/23 11:40 11/03/23 12:06 Prednisone 20 Mg Tablet PO 11/03/23 11:41 20 mg ONCE ONE Administration Tamsulosin HCl 0.4 mg 11/03/23 10:05 11/03/23 11:48 Tamsulosin Hcl 0.4 Mg Capsule PO 11/03/23 10:06 0.4 mg ONCE ONE Administration Critical Care Time Critical Care Time Critical Care Time: Yes Total Critical Care Time: 45 Attestation: I have personally provided critical care time exclusive of time spent on separately billable procedures. Time includes review of lab data, radiology results, discussion with consultants, and monitoring for potential decompensation. Intervention performed as documented. Discharge Plan Discharge Clinical Impression: Right distal ureteral calculus Patient Disposition: Home, Self-Care Instructions: Ureteral Stones (ED) Additional Instructions: You have a 4 mm distal right ureter stone. Flomax will help dilate the ureter. Ketorolac as an anti-inflammatory/pain Medicine, please take with food. Do not take both ketorolac, Advil/ibuprofen and Aleve as there similar medications. Only take 1 Please follow-up with urology Increase fluid intake If symptoms persist or worsen, you are unable to eat or drink RAP difficulty urinating return to the ED Prescriptions: New ketorolac 10 mg tablet 10 mg PO TID PRN (Reason: pain) 5 Days Qty: 15 0RF tamsulosin [Flomax] 0.4 mg capsule 0.4 mg PO DAILY Qty: 14 0RF No Action diltiazem HCl 60 mg tablet 60 mg PO BID 90 Days Qty: 180 1RF clonidine HCl 0.2 mg tablet 0.2 mg PO TID 90 Days Qty: 270 1RF hydrochlorothiazide 25 mg tablet 25 mg PO DAILY Qty: 90 1RF amlodipine 10 mg tablet 10 mg PO DAILY 90 Days Qty: 90 1RF fluticasone propion-salmeterol [Wixela Inhub] 250-50 mcg/dose blister with device 1 inh inhalation BID Qty: 180 1RF cefuroxime axetil 500 mg tablet 500 mg PO BID 10 Days Qty: 20 0RF prednisone 20 mg tablet See Rx Instructions .ROUTE .COMPLEX Qty: 19 0RF Rx Instructions: 20 mg orally Take 3 tablets for 3 days, then take 2 tablets for 3 days, then take 1 tablet for 3 days. tamsulosin [Flomax] 0.4 mg capsule 0.4 mg PO DAILY Qty: 20 0RF omeprazole 20 mg capsule,delayed release(DR/EC) 20 mg PO DAILY@0630 ibuprofen 400 mg Tablet 400 mg PO DAILY PRN (Reason: Pain) albuterol sulfate [Ventolin HFA] 90 mcg/actuation HFA aerosol inhaler 2 puff inhalation Q6H Referrals: [facility] [place] Urology Services [Provider Group] - 5 days Sam Blood, E [employer] STRATEGIST-BC [Primary Care Provider] - Print Language: Romansh
[2023-11-03 08:09] VITALS: BP 139/75; PULSE 68; RESP 14; TEMP 36.5; O2SAT 94
[2023-11-03] MEDS: 0.9 % Sodium Chloride 1,000 ML 999 ML IV ×2 (08:17→11:58)
--- NOTE | 2023-11-03 08:17 | PC.NURSE ---
20G to R forearm inserted. Tolerated well. Good blood return.
[2023-11-03 08:21] VITALS: RESP 20
[2023-11-03 08:21] LABS: Appearance Urine Clear; Color Urine Dark Yellow; Glucose Urine UA Negative (Negative); Leukocyte Esterase Urine Small (1+) (Negative); Nitrite Urine Negative (Negative); UMIC TRIGGER UACC YES; Urine Blood Trace (Negative); Urine Ketones Trace mg/dL (Negative); Urine Protein 30 (1+) mg/dL (Neg-Trace)
[2023-11-03] MEDS: Morphine Sulfate 2 MG/ML CARTRIDGE IVPUSH (08:21)
--- NOTE | 2023-11-03 08:22 | PC.NURSE ---
Pt. medicated per MAR. Call light within reach. No concerns or complaints at this time.
[2023-11-03 08:43] LABS: Bacteria Urine None Seen (None Seen); RBC Urine 0-2 /HPF (0-2); Squamous Epithelial Cell Urine 0-2 /HPF (0-2); UACC Culture Trigger YES; WBC Urine 0-5 /HPF (0-5)
[2023-11-03] MEDS: iohexoL 350 MG/ML 100 ML INFUS..BTL IV (09:18)
[2023-11-03 10:49] LABS: OBS Int Ctl Valid YES; OBS1 NEGATIVE (NEGATIVE)
[2023-11-03] MEDS: Morphine Sulfate 4 MG/ML CARTRIDGE IVPUSH (11:47)
[2023-11-03] MEDS: Tamsulosin HCL 0.4 MG CAPSULE PO (11:48)
[2023-11-03] MEDS: Ketorolac Tromethamine 15 MG/ML VIAL IVPUSH (11:48)
[2023-11-03] MEDS: predniSONE 20 MG TABLET PO (12:06)
[2023-11-03 12:16] VITALS: BP 166/69; PULSE 68; RESP 17; TEMP 36.5; O2SAT 95
[2023-11-03 14:04] VITALS: BP 147/78; PULSE 78; RESP 14; TEMP 36.7; O2SAT 98
== END 2023-11-03 14:05 | disposition home or self-care (01) ==
PROVIDERS: Physician Assistant; Emergency Provider Emergency Medicine; PCP Nurse Practitioner Family
DX: N20.1 Calculus of ureter (principal); R10.30 Lower abdominal pain, unspecified; I10 Essential (primary) hypertension; J44.9 Chronic obstructive pulmonary disease, unspecified; Z79.899 Other long term (current) drug therapy
CPT/HCPCS: 36415; 74178; 80053; 81001; 82272; 83690; 83735; 85025; 87086; 96361; 96374; 96375; 96376; 99284; 99285; J1170; J1885; J2270; Q9967

== ENCOUNTER 2023-11-05 00:57 | Emergency (ER) | payer OTHER, SELFPAY ==
--- NOTE | ~2023-11-05 | XR_ITS ---
EXAMINATION: XR CHEST CLINICAL INFORMATION: Shortness of breath COMPARISON: 03/31/2023 TECHNIQUE: Frontal view of the chest was obtained. FINDINGS: Lung volumes are symmetric. No focal consolidation is seen. Tiny left lung nodules identified on recent CT are not appreciable radiographically. No evidence of pneumothorax, pleural effusion, or pulmonary edema. The cardiomediastinal contour is unremarkable. No acute osseous findings are seen. XR/XR chest 1V IMPRESSION: No acute cardiopulmonary findings. Electronically signed by: Tim Bustillos MD 11/05/2023 02:05 AM EDT
[2023-11-05 01:01] VITALS: BP 150/102; PULSE 115; RESP 18; TEMP 36.4; O2SAT 98; BMI 27.8
--- NOTE | 2023-11-05 01:18 | ED.SOB ---
HPI - SOB/Dyspnea General Chief Complaint: Dyspnea Stated Complaint: trouble breathing Time Seen by Provider: 11/05/23 01:13 Source: patient Mode of arrival: ambulatory Limitations: no limitations History of Present Illness ED Provider: Dr. Jhaveri HPI Narrative: patient with days of shortness of breath, recent heroine use on methadone, was seen in the ED once in October and once in November for abdominal pain found to have slight hydronephrosis and 4mm distal ureter stone. MD elicited complaint: shortness of breath Onset (ago): day(s) Timing: constant Severity: moderate Related Data Home Medications ?Medication ?Instructions ?Recorded ?Confirmed albuterol sulfate 90 mcg/actuation 2 puff inhalation Q6H shortness of 10/14/23 10/14/23 aerosol inhaler (Ventolin HFA) breath or wheezing ibuprofen 400 mg tablet 400 mg PO DAILY PRN Pain 10/14/23 10/14/23 omeprazole 20 mg capsule,delayed 20 mg PO DAILY@0630 10/14/23 10/14/23 release Previous Rx's ?Medication ?Instructions ?Recorded diltiazem HCl 60 mg tablet 60 mg PO BID 90 days #180 tabs 04/03/23 clonidine HCl 0.2 mg tablet 0.2 mg PO TID 90 days #270 tabs 07/21/23 hydrochlorothiazide 25 mg tablet 25 mg PO DAILY #90 tabs 08/14/23 amlodipine 10 mg tablet 10 mg PO DAILY 90 days #90 tabs 08/22/23 Wixela Inhub 250 mcg-50 mcg/dose 1 inh inhalation BID #180 ea 10/09/23 powder for inhalation (fluticasone propion-salmeterol) cefuroxime axetil 500 mg tablet 500 mg PO BID 10 days #20 tabs 10/14/23 prednisone 20 mg tablet See Rx Instructions .Route 10/14/23 .COMPLEX #19 tabs tamsulosin 0.4 mg capsule (Flomax) 0.4 mg PO DAILY #20 caps 10/14/23 ketorolac 10 mg tablet 10 mg PO TID PRN pain 5 days #15 11/03/23 tabs tamsulosin 0.4 mg capsule (Flomax) 0.4 mg PO DAILY #14 caps 11/03/23 naproxen 500 mg tablet (Naprosyn) 500 mg PO BID #20 tabs 11/05/23 Allergies Allergy/AdvReac Type Severity Reaction Status Date / Time No Known Allergies Allergy Verified 11/05/23 01:02 [No Known Allergies*] Review of Systems Review of Systems: Yes all other systems are reviewed and are negative Neurologic: Denies Sensory deficit (Neuro) FOR[facility]LY [facility] Past Medical History Medical History SVT (supraventricular tachycardia) Palpitations Adrenal nodule Pulmonary nodules Depression HTN (hypertension) COPD (chronic obstructive pulmonary disease) Atherosclerotic cardiovascular disease Colon cancer screening declined Substance abuse Surgical History History of open reduction and internal fixation (ORIF) procedure Family History Family History Father No problems noted. Family/Other No problems noted. Other Substance use disorder Social History Social History Housing: House Alcohol intake: former Patient Tobacco Use Status: Current everyday Tobacco user Cigarette Packs Per Day: 1 Years Smoked: 44 (onset 15) Smoked in Last 30 Days: Yes e-Cigarette/Vaping Use: Never Used Second Hand Smoke Exposure: No Use of substances other than those prescribed or required for medical reasons: Yes Substance Use Type: Heroin Last Used Substance: Weeks (ago) Any prior treatment program specific to substance use: No Advance Directives: No Advance Directives Information Provided: No Do you have a plan to hurt others: No Plan Current occupational status: employed Current occupation: [employer] Current occupational exposures/hazards: Yes Cognitive needs: No Hearing needs: No Vision needs: No Physical Exam Vital Signs: Vital Signs: Last Vital Signs Temp 97.6 F 11/05/23 01:01 Pulse 72 11/05/23 02:50 Resp 15 11/05/23 02:50 BP 162/82 H 11/05/23 02:50 Pulse Ox 95 11/05/23 02:50 O2 Del Method Room Air 11/05/23 02:50 BMI result Body Mass Index 27.8 Const: Other: male unkept, very anxious, hyperventilating Nutritional Appearance: average body habitus Orientation/consciousness: oriented to person and patient oriented x3 Limitations: no limitations HEENT: Head: Yes normal to inspection Ears: external ears normal General nose exam: Normal external nose present Mouth: Normal oral and palatal mucosa present and oropharynx normal Throat: Yes posterior oropharynx normal Eyes: General: appearance normal, both eyes and all related structures Neck: Other: supple Neck: Yes normal visual inspection Chest: Chest palpation & inspection: normal inspection of the chest Resp: Auscultation: clear to auscultation bilaterally Cardio: Jugular venous distension: no JVD Rate: regular rate Rhythm: regular rhythm Heart sounds: S1 normal heart sound present and S2 normal heart sound present GI: Inspection: Yes normal to inspection Palpation (GI): Soft to palpation, nontender and No hepatosplenomegaly present Auscultation: normal bowel sounds : Other: rectal: black stool heme negative General: Yes no CVA tenderness Back/Spine/Pelvis: Back: no CVA tenderness Skin: General skin exam: no rashes or lesions noted Neuro: General: oriented to person and patient oriented x3 Cranial nerves: Yes CN's II-XII intact bilaterally Motor exam (neuro): 5/5 motor strength present throughout Sensory Exam: No Sensory deficit (Neuro) Extrem: General: Yes normal to inspection Psych: Appearance: grossly normal Course Reevaluation(s) Reevaluation #1: resting comfortably after toradol and flomax, likely renal colic given his last 2 visits will dc home Time: 02:53 Medications Administered Discontinued Medications Generic Name Dose Route Start Last Admin Trade Name Freq PRN Reason Stop Dose Admin Ketorolac Tromethamine 60 mg 11/05/23 02:01 11/05/23 02:10 Ketorolac Tromethamine 60 Mg/2 Ml Vial IM 11/05/23 02:02 60 mg ONCE ONE Administration Nicotine 21 mg 11/05/23 01:30 11/05/23 01:52 Nicotine 21 Mg Patch.Td24 TRANSDERMA 11/05/23 01:31 21 mg ONCE ONE Administration Tamsulosin HCl 0.4 mg 11/05/23 02:02 11/05/23 02:10 Tamsulosin Hcl 0.4 Mg Capsule PO 11/05/23 02:03 0.4 mg ONCE ONE Administration Medical Decision Making Differential Diagnosis Differential Diagnoses: The differential diagnosis associated with the presentation includes (renal colic, uti, anxiety, pneumonia, cardiac ischemia) Admission/Observation Consideration of admission/observation: Escalation of care including admission/observation considered (upon arrival patient considered for admission) Lab Data 11/05/23 01:44 11/05/23 01:44 Labs: Lab Results 11/05/23 Range/Units 01:44 WBC 11.5 H (4.8-10.8) X10*3/uL RBC 4.94 (4.60-5.80) X10*6/uL Hgb 13.9 L (14.0-18.0) g/dl Hct 40.3 L (42.0-52.0) % MCV 81.6 (80.0-98.0) fL MCH 28.1 (27.0-33.0) pg MCHC 34.5 (31.0-36.0) g/dl RDW 13.2 (11.0-16.0) % Plt Count 352 (160-400) X10*3/uL MPV 9.1 L (9.4-12.4) fL Immature Gran % (Auto) 0.3 (0.0-0.4) % Neut % (Auto) 73.7 H (45-73) % Lymph % (Auto) 18.8 L (20-40) % [place] % (Auto) 5.7 (2-11) % Eos % (Auto) 0.8 (0-4) % Baso % (Auto) 0.7 (0-2) % Lymph # (Auto) 2.2 (1.2-4.9) X10*3/uL [place] # (Auto) 0.7 (0.1-1.2) X10*3/uL Eos # (Auto) 0.1 (0.0-0.4) X10*3/uL Baso # (Auto) 0.1 (0.0-0.2) X10*3/uL Abs Immat Gran (auto) 0.03 (0.00-0.03) X10*3/uL Absolute Neuts (auto) 8.5 H (2.0-8.3) x10*3/uL Absolute Nucleated RBC 0.000 (0.0-0.012) X10*3/uL Nucleated RBC % (auto) 0.0 (0.0-0.2) /100WBC Sodium 140 (135-145) mmol/L Potassium 3.1 L D (3.3-5.1) mmol/L Chloride 108 (96-108) mmol/L Carbon Dioxide 21 L (22-29) mmol/L Anion Gap 14 (12-20) BUN 7 L (9-16) mg/dL Creatinine 0.82 (0.5-1.4) mg/dL Estim Creat Clear Calc 103.8 Estimated GFR > 60 Random Glucose 98 (60-115) mg/dL Calcium 9.2 D (8.4-10.2) mg/dL Troponin I High Sens 7.9 (<3.5-35.0) ng/L Urine Color Yellow Urine Appearance Cloudy Urine pH 8.0 (5.0-9.0) Ur Specific [place] 1.010 (1.005-1.025) Urine Protein Trace (Neg-Trace) mg/dL Urine Glucose (UA) Negative (Negative) mg/dL Urine Ketones 15 (Negative) mg/dL Urine Blood Negative (Negative) Urine Nitrite Negative (Negative) Ur Leukocyte Esterase Negative (Negative) Independent Interpretation I performed an independent interpretation of an: EKG (sinus 80, APC's, no st or twave changes) and Plain X-Ray (CXR: no infiltrate) Prescription Management I considered prescription management with: Antibiotic (no evidence of UTI) Social Determinants Patient?s care significantly limited by Social Determinants of Health including: Low income and Alcoholism and drug addiction in family Discharge Plan Discharge Clinical Impression: Renal colic Patient Disposition: Home, Self-Care Instructions: Renal Colic (ED) Additional Instructions: continue medication as prescribed and follow up with urology Prescriptions: New naproxen [Naprosyn] 500 mg tablet 500 mg PO BID Qty: 20 0RF No Action diltiazem HCl 60 mg tablet 60 mg PO BID 90 Days Qty: 180 1RF clonidine HCl 0.2 mg tablet 0.2 mg PO TID 90 Days Qty: 270 1RF hydrochlorothiazide 25 mg tablet 25 mg PO DAILY Qty: 90 1RF amlodipine 10 mg tablet 10 mg PO DAILY 90 Days Qty: 90 1RF fluticasone propion-salmeterol [Wixela Inhub] 250-50 mcg/dose blister with device 1 inh inhalation BID Qty: 180 1RF cefuroxime axetil 500 mg tablet 500 mg PO BID 10 Days Qty: 20 0RF prednisone 20 mg tablet See Rx Instructions .ROUTE .COMPLEX Qty: 19 0RF Rx Instructions: 20 mg orally Take 3 tablets for 3 days, then take 2 tablets for 3 days, then take 1 tablet for 3 days. tamsulosin [Flomax] 0.4 mg capsule 0.4 mg PO DAILY Qty: 20 0RF omeprazole 20 mg capsule,delayed release(DR/EC) 20 mg PO DAILY@0630 ibuprofen 400 mg Tablet 400 mg PO DAILY PRN (Reason: Pain) albuterol sulfate [Ventolin HFA] 90 mcg/actuation HFA aerosol inhaler 2 puff inhalation Q6H ketorolac 10 mg tablet 10 mg PO TID PRN (Reason: pain) 5 Days Qty: 15 0RF tamsulosin [Flomax] 0.4 mg capsule 0.4 mg PO DAILY Qty: 14 0RF Referrals: Sam Blood, [facility]K [facility] [Primary Care Provider] - 5 days Print Language: Japanese
--- NOTE | 2023-11-05 01:21 | ECG_ITS ---
Test Reason : SOB Blood Pressure : / mmHG Vent. Rate : 082 BPM Atrial Rate : 071 BPM P-R Int : 112 ms QRS Dur : 102 ms QT Int : 404 ms P-R-T Axes : 000 083 069 degrees QTc Int : 472 ms Sinus rhythm with Premature atrial complexes Otherwise normal ECG When compared with ECG of 11-AUG-2018 13:19, Premature atrial complexes are now Present T wave amplitude has decreased in Anterior leads Referred By: Sharad Jhaveri Electronically Signed By:HERNÁN BURDEN
--- NOTE | 2023-11-05 01:22 | PC.NURSE ---
when asked if pt did any drugs, he said, I use to , when asked when was the last time, 2 weeks ago , when asked what he did, I snorted dope, use to be heroin, but it is not heroin now
[2023-11-05 01:50] LABS: MANUAL DIFF FLAG NO
[2023-11-05] MEDS: Nicotine 21 MG PATCH.TD24 TRANSDERMA (01:52)
[2023-11-05 01:54] LABS: Basophils Absolute Auto 0.1 X10*3/uL (0.0-0.2); Basophils Percent Auto 0.7 % (0-2); Eosinophils Absolute Auto 0.1 X10*3/uL (0.0-0.4); Eosinophils Percent Auto 0.8 % (0-4); Hematocrit 40.3 % (42.0-52.0); Hemoglobin 13.9 g/dl (14.0-18.0); Imm Gran Abs Auto 0.03 X10*3/uL (0.00-0.03); Imm Gran Pct Auto 0.3 % (0.0-0.4); Lymphocytes Absolute Auto 2.2 X10*3/uL (1.2-4.9); Lymphocytes Percent Auto 18.8 % (20-40); Mean Corpuscular HGB Conc 34.5 g/dl (31.0-36.0); Mean Corpuscular Hemoglobin 28.1 pg (27.0-33.0); Mean Corpuscular Volume 81.6 fL (80.0-98.0); Mean Platelet Volume 9.1 fL (9.4-12.4); Monocytes Absolute Auto 0.7 X10*3/uL (0.1-1.2); Monocytes Percent Auto 5.7 % (2-11); Neutrophils Absolute Auto 8.5 x10*3/uL (2.0-8.3); Neutrophils Percent Auto 73.7 % (45-73); Platelet Count 352 X10*3/uL (160-400); Red Blood Count 4.94 X10*6/uL (4.60-5.80); Red Cell Distribution Width 13.2 % (11.0-16.0); White Blood Count 11.5 X10*3/uL (4.8-10.8)
[2023-11-05 01:55] LABS: Appearance Urine Cloudy; Color Urine Yellow; Glucose Urine UA Negative (Negative); Leukocyte Esterase Urine Negative (Negative); Nitrite Urine Negative (Negative); Urine Blood Negative (Negative); Urine Ketones 15 mg/dL (Negative); Urine Protein Trace mg/dL (Neg-Trace)
--- NOTE | 2023-11-05 01:57 | PC.NURSE ---
pt c/o of abd pain, wants pain medicine, informed the doctor
[2023-11-05 02:07] LABS: Anion Gap 14 (12-20); Blood Urea Nitrogen 7 mg/dL (9-16); Calcium 9.2 mg/dL (8.4-10.2); Carbon Dioxide 21 mmol/L (22-29); Chloride 108 mmol/L (96-108); Creatinine Clr Calc Pharmacy 103.8; Estimated Glomerular Filt Rate > 60; Glucose Random 98 mg/dL (60-115); Potassium 3.1 mmol/L (3.3-5.1); Sodium 140 mmol/L (135-145)
[2023-11-05] MEDS: Ketorolac Tromethamine 60 MG/2 ML VIAL IM (02:10)
[2023-11-05] MEDS: Tamsulosin HCL 0.4 MG CAPSULE PO (02:10)
[2023-11-05 02:12] LABS: Troponin-I High Sensitivity 7.9 ng/L (<3.5-35.0)
[2023-11-05 02:50] VITALS: BP 162/82; PULSE 72; RESP 15; O2SAT 95
[2023-11-05 03:20] VITALS: BP 162/82; PULSE 72; RESP 15; TEMP 36.4; O2SAT 95
== END 2023-11-05 03:20 | disposition home or self-care (01) ==
PROVIDERS: Emergency Provider Emergency Medicine; PCP Nurse Practitioner Family
DX: N23 Unspecified renal colic (principal); R06.02 Shortness of breath; N20.1 Calculus of ureter; I10 Essential (primary) hypertension; F11.90 Opioid use, unspecified, uncomplicated; Z79.899 Other long term (current) drug therapy
CPT/HCPCS: 36415; 71045; 80048; 81003; 84484; 85025; 93005; 96372; 99284; J1885

== ENCOUNTER 2023-11-12 11:50 | Outpatient (AMB) | payer OTHER, SELFPAY ==
--- NOTE | 2023-11-12 11:46 | A.OFFVIS_ITS ---
Intake Visit Reasons: ureteral stone ER follow up Intake Note: Patient is Present for Telephone Follow Up ER Follow up Urethral Stone Urology Med: Tamsulosin Antibiotic Allergy:None Blood Thinner: None Billing Auditor Required: No Allergies No Known Allergies [No Known Allergies*] Allergy (Verified 11/05/23 01:02) HPI Comments Details: Hermes is a pleasant male. He is a patient of Dr. Ramos. He seen for the following urologic conditions - distal nephrolithiasis Telemedicine Evaluation 15 min Consultation [facility] [facility] [employer] Multiple visits to emergency room in past month Still with pain in right groin Recommend intervention He is having trouble tolerating pain and has been out of work would like this to be done as a semi urgent procedure Nephrolithiasis Distal right ureteric stone with hydronephrosis Creatinine 0.8, WBC 11.5 Has urgency and frequency PFSH Medical History SVT (supraventricular tachycardia) Palpitations Adrenal nodule Pulmonary nodules Depression HTN (hypertension) COPD (chronic obstructive pulmonary disease) Atherosclerotic cardiovascular disease Colon cancer screening declined Substance abuse Surgical History History of open reduction and internal fixation (ORIF) procedure Family History Father No problems noted. Family/Other No problems noted. Other Substance use disorder Social History Housing: House Alcohol intake: former Patient Tobacco Use Status: Current everyday Tobacco user Cigarette Packs Per Day: 1 Years Smoked: 44 (onset 15) e-Cigarette/Vaping Use: Never Used Second Hand Smoke Exposure: No Substance Use Type: Heroin Current occupational status: employed Current occupation: [employer] Current occupational exposures/hazards: Yes Cognitive needs: No Hearing needs: No Vision needs: No Review of Systems Const All systems reviewed & are unremarkable except as noted in HPI and below Reports no additional complaints Resp Reports no additional complaints GI Reports no additional complaints Reports as per HPI Musc Reports no additional complaints Physical Exam Telemedicine evaluation Appropriate responses Regular breathing rate and rhythm HEENT Head: Yes normal to inspection Ears: hearing grossly normal bilaterally Eyes General: appearance normal, both eyes and all related structures Neck Neck: Yes normal visual inspection Chest Chest palpation & inspection: normal inspection of the chest Resp Effort & Inspection: normal respiratory effort and able to speak in complete sentences Telehealth Telehealth Telehealth Platform: StayT[employer] Location of provider rendering services: practice address Location of patient: address on file Patient Identification confirmed using: Name, : Yes Telehealth method: video Patient verbally consented to treatment: Yes Patient verbally consented to billing insurance company: Yes Patient informed of any privacy concerns related to visit: Yes Minutes spent on Phone/Video with Pt.: 15 Assessment & Plan Assessment & Plan (1) Nephrolithiasis: Code(s): N20.0 - Calculus of kidney Category: Medical Plan Ureteroscopy We discussed the nature of the decision and reasonable alternatives for performing ureteroscopy. Options such as medical therapy were discussed. Interventions include chemical dissolution, ESWL, ureteroscopy with laser lithotripsy and stent placement, PCNL. The relative uncertainties and benefits related to each alternate procedure were adequately discussed. General surgical risks including, but not limited to - pain, bleeding, infection, myocardial infarction, pulmonary embolus, deep vein thrombosis and cerebrovascular accident which may result in further hospitalization were discussed. Full disclosure of the procedure as well as all major risks, benefits and complications were discussed including but not limited to damage to the urethra, bladder and kidney infection, damage to the ureter, stent migration or malposition, scarring to the renal pelvis, remnant stone fragments, subsequent stone passage with need for secondary procedures. The overall secondary proc edure rate is approximately 10-15%. The overall clearance rate is approximately 90-95%. Success of the procedure in the short-term does not necessarily guarantee that long-term success will be maintained. Suitable follow up will need to be maintained. The patient showed understanding of discussion and wishes to proceed with - cystoscopy, retrograde, ureteroscopy, possible lithotripsy/stone basketing and stent on the right side Patient Instructions: Imaging studies, laboratory and physical exam results were discussed and r eviewed in detail. No major barriers to patient understanding were identified. An opportunity to ask questions regarding the treatment plan was provided. All questions were answered. The patient expressed understanding and agreement with the above treatment plan. The patient is aware they should contact our office by phone for worsening of their current condition or the appearance of new urologic symptoms. Compliance is encouraged with any medications and followup testing that is ordered. It is a privilege to participate in the urologic care of your patient. If you have any questions or concerns regarding treatment for the above conditions, or other urologic issues, please do not hesitate to contact me. The office telephone contact is [phone]. This note is constructed using voice recognition software. While every effort has been made to ensure accuracy crop duster helper errors may have been included. Yours sincerely, Dr Hermilo Weir MD, [facility] - Urology Providers of Expert, Compassionate Care for the Genitourinary System Coding Level of Care Code New Pt Level 4 (64143) Diagnoses Nephrolithiasis N20.0
== END 2023-11-12 13:55 | disposition home or self-care (01) ==
LOC: HO.HUSH 11:50
PROVIDERS: PCP Nurse Practitioner Family; Visit Provider Urology
DX: N20.0 Calculus of kidney (principal)
CPT/HCPCS: 99204

== ENCOUNTER → 2023-11-12 11:50 | Outpatient (BNVA) | payer OTHER, SELFPAY | PROVIDERS: PCP Nurse Practitioner Family; Visit Provider Urology ==

== ENCOUNTER 2023-11-13 14:40 | Day surgery (SDC) | payer OTHER, SELFPAY ==
[2023-11-13 14:50] VITALS: BMI 25.5
[2023-11-13] MEDS: Lactated Ringers 1,000 ML 80 ML IVCONT (14:58)
[2023-11-13 15:08] VITALS: BP 142/98; PULSE 103; RESP 18; TEMP 36.7; O2SAT 96
--- NOTE | 2023-11-13 15:32 | P.HPSUR_ITS ---
Pre-Procedural Eval Section A - 24 Hr Update-Section A only Date of Service: 11/13/23 The patient is an INPATIENT: No The patient has been examined within 24 hours of the surgical procedure. The History & Physical has been completed within 30 days and I have reviewed it.: Yes Section B - Complete if H&P > 30 days Chief Complaint: Calculus of kidney Details of Present Illness: Cystoscopy, right retrograde, right ureteroscopy w ith laser lithotripsy stent placement Allergies: Allergies Allergy/AdvReac Type Severity Reaction Status Date / Time No Known Allergies Allergy Verified 11/13/23 14:59 [No Known Allergies*] Plan I have reviewed the history and physical and performed a pertinent physical examination on my patient. No changes have occurred unless specified. Time Spent With Patient Time: Total time managing care of this patient today ____ minutes.
--- NOTE | 2023-11-13 15:37 | HO.ANESPROP2 ---
HPI - Anesthesia Eval Consult details Narrative: For cysto, retro, laser PMFSH Active Problems Active Problems: All Active Problems Nephrolithiasis (Acute) Abdominal pain (Acute) Umbilical hernia (Acute) Atherosclerotic cardiovascular disease (Acute) Preoperative cardiovascular examination (Acute) Polysubstance abuse (Acute) Bright red rectal bleeding (Acute) Supraventricular tachycardia (Acute) Multiple pulmonary nodules (Acute) Adrenal nodule (Acute) Abdominal discomfort (Acute) Traumatic ecchymosis of left forearm (Acute) Elevated WBC count (Acute) HTN (hypertension) (Acute) Major depression, recurrent (Acute) COPD (chronic obstructive pulmonary disease) (Acute) Palpitations (Acute) Screening for colon cancer (Acute) Screening PSA (prostate specific antigen) (Acute) Physical exam (Acute) Smoker (Acute) Colon cancer screening declined (Acute) Past Medical History Medical History (Updated 11/12/23 @ 12:34 by Hermilo Weir MD) SVT (supraventricular tachycardia) Palpitations Adrenal nodule Pulmonary nodules Depression HTN (hypertension) COPD (chronic obstructive pulmonary disease) Atherosclerotic cardiovascular disease Colon cancer screening declined Substance abuse Family History Family History Father No problems noted. Family/Other No problems noted. Other Substance use disorder Family history of problems with anesthesia: No Surgical History Surgical History (Updated 11/13/23 @ 14:58 by Juli Brown RN) H/O hand surgery History of open reduction and internal fixation (ORIF) procedure History of Problems with Anesthesia: No Social History Social History Household Members Other:: brother Housing: House Are you a primary health careers instructor to a significant other at home: No Do you presently have visiting nurse or other home services: No Alcohol intake: former Patient Tobacco Use Status: Current everyday Tobacco user Cigarette Packs Per Day: 1 Years Smoked: 44 (onset 15) Smoked in Last 30 Days: Yes e-Cigarette/Vaping Use: Never Used Patient Interested in Nicotine Replacement: No Second Hand Smoke Exposure: No Substance Use Type: Heroin Have you been hit, kicked, punched, or otherwise hurt by someone within the past year? If so, by whom?: No Are you DNR?: No Advance Directives: No Advance Directives Information Provided: Yes Recently lost weight without trying: Yes How much weight loss: 2-13 pounds Nutrition Risks: No Nutritional Risk Poor oral hygiene: Yes (no teeth) Current occupational status: employed Current occupation: [employer] Current occupational exposures/hazards: Yes Cognitive needs: No Hearing needs: No Vision needs: No Meds Allergies Allergy/AdvReac Type Severity Reaction Status Date / Time No Known Allergies Allergy Verified 11/13/23 14:59 [No Known Allergies*] Active Medications: Current Medications Lactated Ringer's (Lr) 1,000 mls @ 80 mls/hr IVCONT .[id number] AMANDA Last Admin: 11/13/23 14:58 Dose: 80 mls/hr Levofloxacin (Levaquin) 500 mg in 100 mls @ 100 mls/hr IV PREOP ONE Stop: 11/13/23 16:32 Acetaminophen (Ofirmev) 1,000 mg in 100 mls @ 400 mls/hr IV PREOP ONE Stop: 11/13/23 15:47 Home Medications ?Medication ?Instructions ?Recorded ?Confirmed ?Last Taken ?Type albuterol sulfate 90 mcg/actuation 2 puff inhalation Q6H shortness of 10/14/23 11/13/23 11/13/23 History aerosol inhaler (Ventolin HFA) breath or wheezing ibuprofen 400 mg tablet 400 mg PO DAILY PRN Pain 10/14/23 11/13/23 11/13/23 History omeprazole 20 mg capsule,delayed 20 mg PO DAILY@0630 10/14/23 11/13/23 11/13/23 History release methadone 50 mg PO DAILY 11/13/23 11/13/23 11/13/23 History Exam Height,Weight and Vital Signs: Height 6 ft Weight 85.275 kg Last Vital Signs Temp 98.0 F 11/13/23 15:08 Pulse 103 H 11/13/23 15:08 Resp 18 11/13/23 15:08 BP 142/98 H 11/13/23 15:08 Pulse Ox 96 11/13/23 15:08 O2 Del Method Room Air 11/13/23 15:08 Airway Mallampati Class: I TM Dist: <=3cm Neck ROM: Full Denture: Upper and Lower Heart: ok Lungs: COPD. Room air Sat 96% Assessment and Plan Assessment Anesthesia Assessment: Anesthesia Plan Discussed and Chart Reviewed Final Anesthetic Review Family History of Problems with Anesthesia: No History of Problems with Anesthesia: No NPO: Yes ASA Class: III Final Preanesthetic Review: No Changes in Pt Med Stat, Meds/Allgs Chart Reviewed, Consent Obtained/Reviewed and Anes Risks/Benef Reviewed Patient Risk: Intermediate Procedure Risk: Low Anesthetic Plan Anesthetic Plan: GA and Agree w/ Assess. and Plan Disposition: Standard PACU
--- NOTE | 2023-11-13 15:41 | PC.NURSE ---
Patient in preop. ST with PAC's on monitor. HR ranging from 90's to 150's. Patient has known history of SVT. Recent EKG, Echo and early childhood lead teacher note on file as well as [address] Brian made aware. At bedside. No new orders at this time. Last K 3.1 on 11/04. Istat complete per Dr. Brian by Dr. Da Silva. K results 3.4. Dr. Brian aware. No new orders at this time.
--- NOTE | 2023-11-13 16:18 | W.PM.OPN ---
Operative Note Operative Note Date of Service: 11/13/23 Narrative: PreOperative Diagnosis: Right distal ureteric stone with hydronephrosis Post Operative Diagnosis: Right distal ureteric stone with hydronephrosis Procedure: - cystoscopy, right retrograde - right dilatation of ureteric orifice under fluoroscopy - right ureteroscopy, laser lithotripsy, stone basketing - right stent placement Surgeon: Dr Hermilo Weir Anesthesia: General Indications for procedure: Seen in ER with distal right ureteric stone. Failed medical expulsion therapy. Persistent pain. Unable to work. Procedure: After informed consent was verified the patient was brought to the operating room and placed in a supine position. Anesthesia was administered per protocol. The patient was placed in a modified dorsal lithotomy position and prepped and draped in a sterile fashion. Safety pause time-out and side of surgery were confirmed. Images were available for review. Antibiotic administration confirmed. A 22 Citizen [place] cystoscope was inserted per urethra. The urethra was without abnormality. The bladder was normal in its entirety. Both ureteric orifices were seen in normal position. The right ureteric orifice was cannulated and a retrograde examination was performed. Filling defects seen in distal portion right ureter . A Sensor guidewire was placed up to the level of the renal pelvis under fluoroscopy. The rigid cystoscope was removed. A [place] dilator was placed over the Sensor guidewire and used to dilate the ureteric orifice under fluoroscopy. The dilator was removed. The semi rigid ureteral scope was placed alongside the Sensor guidewire. The stone was located.. Using a 365 micro holmium laser fiber the stone was broken into small pieces using a combination of hammer and dusting techiques. Stone fragments were removed from the ureter using a 2.4 [place] ZeroTip basket basket. Once the fragments were removed a decision was made to place a ureteric stent. Based on the height of the patient a 6 Fr x variable length stent was used. The string was removed from the stent prior to placement The rigid cystoscope was backloaded over the wire and advanced into the bladder. A 6 [place] by variable length cm double-J stent was placed into the renal pelvis and bladder under a combination of fluoroscopy and direct visualization. The bladder was emptied. The patient tolerated the procedure well and was extubated in the operating room. They were transferred in stable condition to the recovery area. Pathology: stones Drains: Double J stent as described above
[2023-11-13 16:27] VITALS: BP 136/69; PULSE 81; RESP 18; TEMP 36.2; O2SAT 98
[2023-11-13 16:30] VITALS: BP 139/78; PULSE 75; RESP 18; O2SAT 98
[2023-11-13] MEDS: Phenazopyridine HCL 100 MG TABLET PO (16:30)
[2023-11-13 16:35] VITALS: BP 150/80; PULSE 75; RESP 18; O2SAT 98
[2023-11-13 16:40] VITALS: BP 157/76; PULSE 71; RESP 18; O2SAT 98
[2023-11-13 16:49] LABS: Base Excess Bedside Calculated 4 mmol/L (-3-3); Glucose, i-STAT 116 mg/dL (60-115); HCO3 Bedside Calculated 28 mmol/L (22-26); Hematocrit Bedside 40 %PCV (42-52); Hemoglobin Bedside 13.6 g/dL (14.0-18.0); Potassium Bedside 3.4 mmol/L (3.3-5.1); SO2 Bedside Calculated 92 %; Sodium Bedside 139 mmol/L (135-145); TCO2 Bedside 29 mmol/L (24-29); pCO2 Bedside 38 mmhg (35-48); pH Bedside 7.48 (7.35-7.45); pO2 Bedside 58 mmhg (83-108)
[2023-11-13 16:55] VITALS: BP 154/82; PULSE 68; RESP 16; TEMP 36.1; O2SAT 96
== END 2023-11-13 17:05 | disposition home or self-care (01) ==
PROVIDERS: PCP Nurse Practitioner Family; Visit Provider Urology
PROC: (CPT 52356; principal; 2023-11-13 16:30)
DX: N13.2 Hydronephrosis with renal and ureteral calculous obstruction (principal); R39.15 Urgency of urination; R35.0 Frequency of micturition; I10 Essential (primary) hypertension; I47.10 Supraventricular tachycardia, unspecified; J44.9 Chronic obstructive pulmonary disease, unspecified; Z79.899 Other long term (current) drug therapy; Z98.890 Other specified postprocedural states; F17.210 Nicotine dependence, cigarettes, uncomplicated
CPT/HCPCS: 52356; 52352; C1758; C1769; C2617; J0131; J1956; J2704; J3010; Q9967

== ENCOUNTER → 2023-11-13 14:40 | Outpatient (BNV) | payer OTHER, SELFPAY | PROVIDERS: PCP Nurse Practitioner Family; Visit Provider Urology | DX: N20.1 Calculus of ureter (principal); N13.30 Unspecified hydronephrosis | CPT/HCPCS: 52356; 74420 ==

== ENCOUNTER 2023-11-27 13:26 | Outpatient (AMB) | payer OTHER, SELFPAY ==
--- NOTE | 2023-11-27 14:11 | MHC.OFFVIS ---
Intake Visit Reasons: stent removal Intake Note: Patient is Present for Cystoscopy/Stent Removal Urology Med:None Antibiotic Allergy: None Blood Thinner: None URO- G Disposable Cystoscope lot: exp: Allergies No Known Allergies [No Known Allergies*] Allergy (Verified 11/13/23 14:59) HPI Comments Details: Hermes is a pleasant male. He is a patient of Dr. Ramos. He seen for the following urologic conditions - distal nephrolithiasis Here for stent removal Stone analysis not yet resulted Three-month follow-up renal ultrasound Nephrolithiasis Distal right ureteric stone with hydronephrosis Creatinine 0.8, WBC 11.5 Underwent ureteroscopy with laser lithotripsy [facility] Medical History (Updated 11/12/23 @ 12:34 by Hermilo Weir MD) SVT (supraventricular tachycardia) Palpitations Adrenal nodule Pulmonary nodules Depression HTN (hypertension) COPD (chronic obstructive pulmonary disease) Atherosclerotic cardiovascular disease Colon cancer screening declined Substance abuse Surgical History (Updated 11/13/23 @ 14:58 by Juli Brown RN) H/O hand surgery History of open reduction and internal fixation (ORIF) procedure Family History Father No problems noted. Family/Other No problems noted. Other Substance use disorder Social History Household Members Other:: brother Housing: House Are you a primary health care law specialist to a significant other at home: No Do you presently have visiting nurse or other home services: No Alcohol intake: former Patient Tobacco Use Status: Current everyday Tobacco user Cigarette Packs Per Day: 1 Years Smoked: 44 (onset 15) e-Cigarette/Vaping Use: Never Used Second Hand Smoke Exposure: No Substance Use Type: Heroin Current occupational status: employed Current occupation: [employer] Current occupational exposures/hazards: Yes Cognitive needs: No Hearing needs: No Vision needs: No Review of Systems Const Denies chills and Denies fever(s) Card Reports no additional complaints and Denies syncope Resp Denies cough GI Denies abdominal pain and Denies heartburn Reports as per HPI and Denies change in libido Neuro Denies syncope Psych Denies change in libido Endo Denies change in libido Physical Exam Const General: cooperative, healthy appearing, comfortable and no acute distress Orientation/consciousness: patient oriented x3 HEENT Face and sinus: Yes normal facial exam Mouth: moist mucous membranes Neck Neck: Yes normal visual inspection, Yes full ROM and Yes trachea midline Chest Chest palpation & inspection: normal inspection of the chest Resp Effort & Inspection: normal respiratory effort, able to speak in complete sentences and no respiratory distress GI Inspection: Yes normal to inspection Back/Spine/Pelvis Cervical Spine: normal cervical lordosis Thoracic/Lumbar Spine: thoracic and lumbar spine normal to inspection Skin General skin exam: no rashes or lesions noted Neuro General: patient oriented x3, gait normal, tone normal and moves all extremities Extrem General: Yes normal to inspection and Yes capillary refill normal Office Procedures Cystoscopy Consent Discussed risk and benefit or proposed procedure with the patient. Information consent for procedure given to the patient. Discussed technical aspects, risks, benefits and alternatives in full. Addressed all of the patient's questions and concerns regarding the procedure. The patient demonstrated knowledge and understanding. They wish to proceed with this procedure. Preparation The patient was prepped in the usual manner. A data analyst etl developer was present and in the room. Genitalia was prepped with betadine solution in a sterile manner. Lidocaine Jelly 2% was placed into the urethra and 16Fr flexible Olympus cystoscope was inserted into the meatus after adequate lubrication. Procedure A well lubricated 16 Occ[place] cystoscope was placed No abnormality noted of urethra during placement Indwelling stent seen within bladder emerging from right ureteric orifices The stent was grasped with a 3 prong grasper and removed without difficulty The patient tolerated the procedure well [id number] with stent removal DISPOSABLE SCOPE URO-G FLEXIBLE SCOPE Procedure code (CPT) selection complete Office Meds lidocaine HCl 2 % mucosal jelly in applicator Performing Provider: Hermilo Weir MD [facility] Administered by: Brent Medeiros LPN on 11/27/23 14:35 Dose Route Admin Location Dispensed Lot Number Expiration Date [facility] Special Inspector 10 mL intra-urethral 20 mL nitrofurantoin monohydrate/macrocrystals 100 mg capsule Performing Provider: Hermilo Weir MD Performing [facility] Administered by: Brent Medeiros LPN on 11/27/23 14:35 Dose Route Admin Location Dispensed Lot Number Expiration Date [facility] Special Inspector 100 mg PO 1 cap naproxen 500 mg tablet Performing Provider: Hermilo Weir MD Performing [facility] Administered by: Brent Medeiros LPN on 11/27/23 14:35 Dose Route Admin Location Dispensed Lot Number Expiration Date [facility] Special Inspector 500 mg PO 1 tab Results AMB Urinalysis, Automated UA Leukoctes 70 Carson/uL Last Edit by Betzy Carlson A on 11/27/23 14:25 UA Nitrite Negative Last Edit by Betzy Carlson A on 11/27/23 14:25 UA Urobilinogen 0.2 mg/dL Last Edit by Betzy Carlson RMA on 11/27/23 14:25 UA Protein 30 mg/dL Last Edit by Betzy Carlson A on 11/27/23 14:25 UA pH 5.5 Last Edit by Betzy Carlson RMA on 11/27/23 14:25 UA Blood 200 Nato/uL Last Edit by Betzy Carlson A on 11/27/23 14:25 UA Specific Hunter 1.020 Last Edit by Betzy Carlson A on 11/27/23 14:25 UA Ketone Negative Last Edit by Betzy Carlson A on 11/27/23 14:25 UA Bilirubin 0 mg/dL Last Edit by Betzy Calrson A on 11/27/23 14:25 UA Glucose 0 mg/dL Last Edit by Betzy Carlson A on 11/27/23 14:25 Results Reviewed Results Reviewed: Laboratory Last Values Urine pH (Auto) 5.5 11/27/23 14:24 Specific Hunter (Auto) 1.020 11/27/23 14:24 Urine Protein (Auto) 30 mg/dL 11/27/23 14:24 Glucose (UA)(Auto) 0 mg/dL 11/27/23 14:24 Urine Ketones (Auto) Negative 11/27/23 14:24 Urine Blood (Auto) 200 Nato/uL 11/27/23 14:24 Urine Nitrite (Auto) Negative 11/27/23 14:24 Urine Bilirubin (Auto) 0 mg/dL 11/27/23 14:24 Urine Urobilinogen (Auto) 0.2 mg/dL 11/27/23 14:24 Leukocyte Esterase (Auto) 70 Carson/uL 11/27/23 14:24 Assessment & Plan Assessment & Plan (1) Nephrolithiasis: Code(s): N20.0 - Calculus of kidney Category: Medical Plan Three-month follow-up Orders: Orders AMB Cystoscopy Today N20.0 - Calculus of kidney AMB Urinalysis Automated Today Z13.9 - Encounter for screening, unspecified US renal BI 3 Months N20.0 - Calculus of kidney Patient Instructions: Imaging studies, laboratory and physical exam results were discussed and reviewed in detail. No major barriers to patient understanding were identified. An opportunity to ask questions regarding the treatment plan was provided. All questions were answered. The patient expressed understanding and agreement with the above treatment plan. The patient is aware they should contact our office by phone for worsening of their current condition or the appearance of new urologic symptoms. Compliance is encouraged with any medications and followup testing that is ordered. It is a privilege to participate in the urologic care of your patient. If you have any questions or concerns regarding treatment for the above conditions, or other urologic issues, please do not hesitate to contact me. The office telephone contact is [phone]. This note is constructed using voice recognition software. While every effort has been made to ensure accuracy industrial economist errors may have been included. Yours sincerely, Dr Hermilo Weir MD, [facility] - Urology Providers of Expert, Compassionate Care for the Genitourinary System Coding Level of Care Code Est Pt Level 3 (61985) Diagnoses Nephrolithiasis N20.0 CPT Codes Cystoscopy - CPT: 02886-[id number] with stent removal ([id number])
== END 2023-11-27 14:54 | disposition home or self-care (01) ==
PROVIDERS: PCP Nurse Practitioner Family; Visit Provider Urology
DX: N20.0 Calculus of kidney (principal); Z96.0 Presence of urogenital implants; Z13.9 Encounter for screening, unspecified
CPT/HCPCS: 52310; 99213

== ENCOUNTER → 2023-11-27 13:26 | Outpatient (BNVA) | payer OTHER, SELFPAY | PROVIDERS: PCP Nurse Practitioner Family; Visit Provider Urology | DX: Z48.816 Encounter for surgical aftercare following surgery on the genitourinary system (principal) | CPT/HCPCS: 52310; 81003 ==

== ENCOUNTER 2023-12-24 08:31 | Outpatient (AMB) | payer OTHER, SELFPAY ==
[2023-12-24 08:32] VITALS: BP 124/48; PULSE 68; BMI 25.6
--- NOTE | 2023-12-24 08:32 | A.OFFVIS_ITS ---
Vital Signs 12/24/23 08:32 Height 6 ft Weight 188 lb 11.451 oz BMI 25.6 BP 124/48 L Blood Pressure Location Lt brachial Position Sitting Pulse 68 Pulse Source Pulse Oximeter Intake Visit Reasons: Follow up/Coronary CTA Ad Terminal Makeup Operator Required: No Accompanied by: Self / Same As Patient Allergies No Known Allergies [No Known Allergies*] Allergy (Verified 11/13/23 14:59) Medication List - Last Reconciled 12/24/23 by Jose Fitzpatrick MD albuterol sulfate 90 mcg/actuation (Ventolin HFA) 2 puffs inhalation Q6H amlodipine 10 mg PO DAILY 90 days diltiazem HCl 60 mg PO BID 90 days hydrochlorothiazide 25 mg PO DAILY ibuprofen 400 mg PO DAILY PRN [methadone 55 mg PO DAILY] omeprazole 20 mg PO DAILY@0630 Wixela Inhub 250-50 mcg/dose (fluticasone propion-salmeterol) 1 inh inhalation BID NS HPI Comments Details: Hermes returns for follow-up. Recently seen in consultation regarding preoperative risk stratification for colonoscopy. He has had supraventricular arrhythmias in the past and for that reason, he is on diltiazem. Also has uncontrolled hypertension according to him and he has had very high blood pressures approaching 200 mm Hg in the past but recent blood pressures are lower than that. He has long history of heroin use and unfortunately still using that. Denies any cocaine use. History of smoking. He states he was also using a lot of alcohol in the past but nothing last few years. More recently, he has not been noticing any palpitations. Otherwise, no clear-cut symptoms like angina. He does get short of breath with activity. He has completed an echocardiogram, Holter, coronary CTA. [facility] Medical History (Updated 12/24/23 @ 08:39 by Cat Kelly CMA) SVT (supraventricular tachycardia) Palpitations Adrenal nodule Pulmonary nodules Depression HTN (hypertension) COPD (chronic obstructive pulmonary disease) Atherosclerotic cardiovascular disease Colon cancer screening declined Substance abuse Surgical History (Updated 12/24/23 @ 08:39 by Cat Kelly CMA) Hx of nephrolithotomy with removal of calculi H/O hand surgery History of open reduction and internal fixation (ORIF) procedure Family History Father No problems noted. Family/Other No problems noted. Other Substance use disorder Social History Household Members Other:: brother Housing: House Are you a primary critical care clinical nurse specialist to a significant other at home: No Do you presently have visiting nurse or other home services: No Alcohol intake: former Patient Tobacco Use Status: Current everyday Tobacco user Cigarette Packs Per Day: 1 Years Smoked: 44 (onset 15) e-Cigarette/Vaping Use: Never Used Second Hand Smoke Exposure: No Substance Use Type: Heroin Current occupational status: employed Current occupation: [employer] Current occupational exposures/hazards: Yes Cognitive needs: No Hearing needs: No Vision needs: No Review of Systems Const Denies chills, Denies fatigue, Denies fever(s), Denies weight gain and Denies weight loss ENT Denies dizziness Card Denies chest pain, Denies leg edema, Denies lightheadedness, Denies palpitations, Denies dyspnea on exertion, Denies orthopnea and Denies other Resp Denies cough and Denies dyspnea on exertion GI Denies hematochezia and Denies change in stool character Musc Denies abnormal gait, Denies muscle weakness, Denies numbness, Denies radiating pain into limb and Denies tingling Neuro Denies abnormal gait, Denies dizziness, Denies numbness and Denies tingling Endo Denies fatigue and Denies palpitations Physical Exam Vital Signs: Last Vital Signs Pulse 68 12/24/23 08:32 BP 124/48 L 12/24/23 08:32 BMI result Body Mass Index 25.6 Const General: comfortable and no acute distress Orientation/consciousness: patient oriented x3 HEENT Other: Unremarkable Head: Yes normal to inspection Neck Neck: Yes normal visual inspection Chest Chest palpation & inspection: normal inspection of the chest Resp Auscultation: clear to auscultation bilaterally Cardio Palpation: normal PMI Heart sounds: S1 normal heart sound present, S2 normal heart sound present, no gallops, no murmurs and no rubs GI Palpation (GI): Soft to palpation Back/Spine/Pelvis Other: unremarkable Skin General skin exam: no rashes or lesions noted Neuro General: patient oriented x3 Extrem General: Yes normal to inspection Psych Mental Status: mental status grossly normal Assessment & Plan Assessment & Plan (1) Preoperative cardiovascular examination: Code(s): Z01.810 - Encounter for preprocedural cardiovascular examination Category: Medical (2) Polysubstance abuse: Code(s): F19.10 - Other psychoactive substance abuse, uncomplicated Category: Medical (3) Supraventricular tachycardia: Code(s): I47.10 - Supraventricular tachycardia, unspecified Category: Medical (4) Atherosclerotic cardiovascular disease: Code(s): I25.10 - Atherosclerotic heart disease of [place] coronary artery without angina pectoris Category: Medical Plan Cardiac studies reviewed. Baseline EKG is unremarkable. In a previous Holter from 2020, the preliminary report describes 7 minutes of atrial fibrillation, but unclear if it is accurate or not. In the cardiology visit note, that was not mentioned. In the repeat Holter, underlying rhythm is sinus with an average rate of 59/Min. Rare supraventricular and ventricular ectopy. In the echocardiogram, LVEF is 65-70%. No significant valvular findings. In the coronary CTA, somewhat of diffuse mild to low moderate stenosis in the LAD and mild stenosis in the RCA. Overall, advised refraining from drugs. For blood pressure he is on amlodipine. He is also concurrently on diltiazem but he states he has been that way for many years and would like to keep it the same. Otherwise, check lipids and then we can start statins. We discussed about that today. With regard to colonoscopy, may proceed. Low cardiac risk. Orders: Orders Lipid Panel 10/02/23 I10 - Essential (primary) hypertension, I25.10 - Atherosclerotic heart disease of [place] coronary artery without angina pectoris Coding Level of Care Code Est Pt Level 4 (97244) Diagnoses Preoperative cardiovascular examination Z01.810 Polysubstance abuse F19.10 Supraventricular tachycardia I47.10 Atherosclerotic cardiovascular disease I25.10
== END 2023-12-24 09:14 | disposition home or self-care (01) ==
PROVIDERS: PCP Nurse Practitioner Family; Visit Provider Internal Medicine
DX: Z01.810 Encounter for preprocedural cardiovascular examination (principal); F19.10 Other psychoactive substance abuse, uncomplicated; I47.10 Supraventricular tachycardia, unspecified; I25.10 Atherosclerotic heart disease of native coronary artery without angina pectoris
CPT/HCPCS: 99214

== ENCOUNTER → 2023-12-24 08:31 | Outpatient (BNVA) | payer OTHER, SELFPAY | PROVIDERS: PCP Nurse Practitioner Family; Visit Provider Internal Medicine ==

== ENCOUNTER 2024-01-02 07:03 | Outpatient (REF) | payer OTHER, SELFPAY ==
[2024-01-02 10:18] LABS: Appearance Urine Clear; Color Urine Yellow; Glucose Urine UA Negative (Negative); Leukocyte Esterase Urine Small (1+) (Negative); Nitrite Urine Negative (Negative); PH 6.5 (5.0-9.0); UMIC TRIGGER UACC YES; Urine Blood Negative (Negative); Urine Ketones Negative (Negative); Urine Protein Negative (Neg-Trace)
[2024-01-02 10:24] LABS: MANUAL DIFF FLAG NO
[2024-01-02 10:39] LABS: Basophils Absolute Auto 0.2 X10*3/uL (0.0-0.2); Basophils Percent Auto 1.4 % (0-2); Eosinophils Absolute Auto 0.7 X10*3/uL (0.0-0.4); Eosinophils Percent Auto 6.4 % (0-4); Hemoglobin 12.9 g/dl (14.0-18.0); Imm Gran Abs Auto 0.03 X10*3/uL (0.00-0.03); Imm Gran Pct Auto 0.3 % (0.0-0.4); Lymphocytes Absolute Auto 3.1 X10*3/uL (1.2-4.9); Lymphocytes Percent Auto 28.3 % (20-40); Mean Corpuscular HGB Conc 33.1 g/dl (31.0-36.0); Mean Corpuscular Hemoglobin 28.2 pg (27.0-33.0); Mean Corpuscular Volume 85.2 fL (80.0-98.0); Mean Platelet Volume 10.1 fL (9.4-12.4); Monocytes Absolute Auto 0.9 X10*3/uL (0.1-1.2); Monocytes Percent Auto 8.2 % (2-11); Neutrophils Percent Auto 55.4 % (45-73); Platelet Count 331 X10*3/uL (160-400); Red Blood Count 4.58 X10*6/uL (4.60-5.80); Red Cell Distribution Width 13.4 % (11.0-16.0); White Blood Count 10.8 X10*3/uL (4.8-10.8)
[2024-01-02 11:00] LABS: Bacteria Urine None Seen (None Seen); Hyaline Casts Urine 0-2 /LPF (0-2); RBC Urine 0-2 /HPF (0-2); Squamous Epithelial Cell Urine 0-2 /HPF (0-2); UACC Culture Trigger YES; WBC Urine 0-5 /HPF (0-5)
[2024-01-02 11:31] LABS: Alanine Aminotransferase 26 U/L (0-40); Albumin Level 4.3 g/dL (3.5-5.0); Alkaline Phosphatase 85 U/L (39-117); Anion Gap 15 (12-20); Aspartate Amino Transferase 22 U/L (5-37); Bilirubin Total 0.3 mg/dL (0.0-1.0); Blood Urea Nitrogen 21 mg/dL (9-16); Calcium 10.7 mg/dL (8.4-10.2); Carbon Dioxide 30 mmol/L (22-29); Chloride 100 mmol/L (96-108); Cholesterol 156 mg/dL (<200); Estimated Glomerular Filt Rate > 60; Glucose Fasting 100 mg/dL (60-99); HDL Cholesterol 45 mg/dL (>40); LDL Cholesterol Calculated 97 mg/dL (<100); Potassium 4.5 mmol/L (3.3-5.1); Sodium 140 mmol/L (135-145); TSH reflex Free T4 1.63 uIU/mL (0.32-4.0); Total Protein 7.5 g/dL (6.5-8.0); Triglycerides 73 mg/dL (<150)
[2024-01-02 11:49] LABS: Prostate Specific Antigen Scr 0.49 ng/mL (<0.05-4.0)
== END 2024-01-02 07:04 | disposition home or self-care (01) ==
LOC: HO.HMGCLDS 07:03
PROVIDERS: PCP Nurse Practitioner Family; Referring Provider Internal Medicine; Visit Provider Nurse Practitioner Family
DX: I10 Essential (primary) hypertension (principal); I25.10 Atherosclerotic heart disease of native coronary artery without angina pectoris; K42.9 Umbilical hernia without obstruction or gangrene; Z12.5 Encounter for screening for malignant neoplasm of prostate
CPT/HCPCS: 36415; 80053; 80061; 81001; 84153; 84443; 85025; 87086

== ENCOUNTER 2024-02-03 10:01 | Outpatient (REF) | payer OTHER, SELFPAY ==
[2024-02-03 14:58] LABS: Anion Gap 12 (12-20); Blood Urea Nitrogen 17 mg/dL (9-16); Calcium 10.1 mg/dL (8.4-10.2); Carbon Dioxide 33 mmol/L (22-29); Chloride 101 mmol/L (96-108); Estimated Glomerular Filt Rate > 60; Glucose Random 116 mg/dL (60-115); Potassium 4.6 mmol/L (3.3-5.1); Sodium 141 mmol/L (135-145)
== END 2024-02-03 10:02 | disposition home or self-care (01) ==
LOC: HO.HMGCLDS 10:01
PROVIDERS: PCP Nurse Practitioner Family; Visit Provider Internal Medicine
DX: I50.9 Heart failure, unspecified (principal); I25.10 Atherosclerotic heart disease of native coronary artery without angina pectoris
CPT/HCPCS: 36415; 80048; 82550

== ENCOUNTER 2024-02-10 10:44 | Outpatient (REF) | payer OTHER, SELFPAY | END 2024-02-10 10:45 | disposition home or self-care (01) | LOC: HO.US 10:44 | PROVIDERS: PCP Nurse Practitioner Family; Visit Provider Urology | DX: N20.0 Calculus of kidney (principal) | CPT/HCPCS: 76775 ==

== ENCOUNTER 2024-02-26 08:36 | Outpatient (AMB) | payer OTHER, SELFPAY ==
--- NOTE | 2024-02-26 09:02 | A.OFFVIS_ITS ---
Intake Visit Reasons: 3m/US(Pending) Intake Note: Patient is present for 3M/US Urology Medication:NONE Antibiotic Allergy:NONE Blood Thinner:NONE Electronics Worker Required: No Allergies No Known Allergies [No Known Allergies*] Allergy (Verified 02/26/24 09:03) HPI Comments Details: Hermes is a pleasant male. He is a patient of Dr. Ramos. He seen for the following urologic conditions - distal nephrolithiasis Telemedicine Evaluation 15 min Consultation [employer] Three-month follow-up renal ultrasound No stone seen Encourage lemon water therapy Follow-up 12 months ultrasound Nephrolithiasis Distal right ureteric stone with hydronephrosis Creatinine 0.8, WBC 11.5 11/24 ureteroscopy with laser lithotripsy - right distal stone [facility] Medical History (Updated 01/12/24 @ 12:17 by Sam Blood, [facility]) SVT (supraventricular tachycardia) Palpitations Adrenal nodule Pulmonary nodules Depression HTN (hypertension) COPD (chronic obstructive pulmonary disease) Atherosclerotic cardiovascular disease Colon cancer screening declined Substance abuse Surgical History (Updated 12/24/23 @ 08:39 by Cat Kelyl CMA) Hx of nephrolithotomy with removal of calculi H/O hand surgery History of open reduction and internal fixation (ORIF) procedure Family History Father No problems noted. Family/Other No problems noted. Other Substance use disorder Social History Household Members Other:: brother Housing: House Are you a primary housekeeper child care to a significant other at home: No Do you presently have visiting nurse or other home services: No Alcohol intake: former Patient Tobacco Use Status: Current everyday Tobacco user Cigarette Packs Per Day: 1 Years Smoked: 44 (onset 15) e-Cigarette/Vaping Use: Never Used Second Hand Smoke Exposure: No Substance Use Type: Heroin Current occupational status: employed Current occupation: [employer] Current occupational exposures/hazards: Yes Cognitive needs: No Hearing needs: No Vision needs: No Review of Systems Const All systems reviewed & are unremarkable except as noted in HPI and below Reports no additional complaints Resp Reports no additional complaints GI Reports no additional complaints Reports as per HPI Musc Reports no additional complaints Physical Exam Telemedicine evaluation Appropriate responses Regular breathing rate and rhythm HEENT Head: Yes normal to inspection Ears: hearing grossly normal bilaterally Eyes General: appearance normal, both eyes and all related structures Neck Neck: Yes normal visual inspection Chest Chest palpation & inspection: normal inspection of the chest Resp Effort & Inspection: normal respiratory effort and able to speak in complete sentences Telehealth Telehealth Location of provider rendering services: practice address Location of patient: address on file Patient Identification confirmed using: Name, : Yes Telehealth method: voice only Patient verbally consented to treatment: Yes Patient verbally consented to billing insurance company: Yes Patient informed of any privacy concerns related to visit: Yes Assessment & Plan Assessment & Plan (1) Nephrolithiasis: Code(s): N20.0 - Calculus of kidney Category: Medical Plan Twelve month follow-up renal ultrasound Patient Instructions: Imaging studies, laboratory and physical exam results were discussed and reviewed in detail. No major barriers to patient understanding were identified. An opportunity to ask questions regarding the treatment plan was provided. All questions were answered. The patient expressed understanding and agreement with the above treatment plan. The patient is aware they should contact our office by phone for worsening of their current condition or the appearance of new urologic symptoms. Compliance is encouraged with any medications and followup testing that is ordered. It is a privilege to participate in the urologic care of your patient. If you have any questions or concerns regarding treatment for the above conditions, or other urologic issues, please do not hesitate to contact me. The office tel ephone contact is [phone]. This note is constructed using voice recognition software. While every effort has been made to ensure accuracy clinic nurse errors may have been included. Yours sincerely, Dr Hermilo Weir MD, [facility] - Urology Providers of Expert, Compassionate Care for the Genitourinary System Coding Level of Care Code Tele Est Pt Level 3 (66538) Diagnoses Nephrolithiasis N20.0
== END 2024-02-26 16:02 | disposition home or self-care (01) ==
PROVIDERS: PCP Nurse Practitioner Family; Visit Provider Urology
DX: N20.0 Calculus of kidney (principal)
CPT/HCPCS: 99442

== ENCOUNTER → 2024-02-26 08:36 | Outpatient (BNVA) | payer OTHER, SELFPAY | PROVIDERS: PCP Nurse Practitioner Family; Visit Provider Urology ==

== ENCOUNTER 2024-03-18 12:12 | Outpatient (AMB) | payer OTHER, SELFPAY ==
[2024-03-18 12:18] VITALS: BP 160/90; PULSE 72; TEMP 36.7; O2SAT 98; BMI 25.9
--- NOTE | 2024-03-18 12:18 | MHC.PC.OV ---
Vital Signs 03/18/24 12:18 Height 6 ft Weight 191 lb BMI 25.9 BP 160/90 H Blood Pressure Location Rt brachial Position Sitting Pulse 72 Pulse Source Pulse Oximeter Temp 98.0 F Temp Source Oral Pulse Oximetry (%) 98 Oxygen Delivery Method Room Air Intake Visit Reasons: LLQ pain Conduit Helper Required: No Accompanied by: Self / Same As Patient Allergies No Known Allergies [No Known Allergies*] Allergy (Verified 03/18/24 12:19) Medication List - Last Reconciled 03/18/24 by RE AvilaP- albuterol sulfate 90 mcg/actuation (Ventolin HFA) 2 puffs inhalation Q6H atorvastatin 20 mg PO BEDTIME clonidine HCl 0.2 mg PO BEDTIME diltiazem HCl 60 mg PO BID 90 days hydrochlorothiazide 25 mg PO DAILY ibuprofen 400 mg PO DAILY PRN [methadone 55 mg PO DAILY] pantoprazole 20 mg PO DAILY 30 days rosuvastatin (Crestor) 10 mg PO DAILY Wixela Inhub 250-50 mcg/dose (fluticasone propion-salmeterol) 1 inh inhalation BID NS Tobacco use date assessed: 03/18/24 Dental Screening Dental Screen Date: 03/18/24 Did you have a dental visit in the last 12 months?: Yes Did you have a dental problem in the last 6 months where you did not have access to dental care?: No Was dental information given to patient?: Patient has dentist HPI HPI Comments History of Present Illness Details Chief Complaint History of Present Illness The patient is a 63-year-old male presenting with abdominal pain. He reports discomfort in the left lower quadrant, which has persisted for approximately four weeks. The patient denies experiencing any blood in stool, constipation, diarrhea, nausea, or vomiting. He notes that taking probiotics provides minimal relief. The patient experienced significant symptoms in the past, which led to the diagnosis renal stones at one point, though these have passed (according to pt). A renal US was performed in early january, but unfortunately not read yet. Additionally, the patient reported experiencing chills two days prior to this visit but denies any chills currently or ongoing fever during the current visit (afebrile today). Social History Health Maintenance Review of Systems denies any blood in stool, fevers, n/v, inability to eat, cp, sob, diarrhea, constipation. Physical Exam General: Cooperative, healthy appearing, in discomfort, holding left lower quadrant, well developed Orientation: Patient oriented x3 Limitations: No limitations Head: Normal to inspection Ears: Hearing grossly normal bilaterally Nose: Normal external nose present Face and sinus: Normal facial exam Eyes: Appearance normal, both eyes and all related structures Neck: Normal visual inspection and Yes full ROM Respiratory: Normal respiratory effort and able to speak in complete sentences. wheeze and dim Cardiovascular: Regular rate and rhythm. Normal S1 and S2 GI: Abdomen soft, tender to palpation in the left lower quadrant, bowel sounds are hyperactive Skin: No rashes or lesions noted Neuro: Patient oriented x3 Extremities: Normal to inspection Results Plan told pt to go to the ER multiple times, NEW PPI sent. Discussion Notes NOTE: BP up most likely due to pain/discomfort Patient Instructions - Encouraged ER visit multiple times during the visit - Take the newly prescribed PPI as directed. - Follow up in four months for a full physical examination. [facility] Medical History SVT (supraventricular tachycardia) Palpitations Adrenal nodule Pulmonary nodules Depression HTN (hypertension) COPD (chronic obstructive pulmonary disease) Atherosclerotic cardiovascular disease Colon cancer screening declined Substance abuse Surgical History Hx of nephrolithotomy with removal of calculi H/O hand surgery History of open reduction and internal fixation (ORIF) procedure Family History Father No problems noted. Family/Other No problems noted. Other Substance use disorder Social History Household Members Other:: brother Housing: House Are you a primary healthcare administration internship to a significant other at home: No Do you presently have visiting nurse or other home services: No Alcohol intake: former Patient Tobacco Use Status: Current everyday Tobacco user Cigarette Packs Per Day: 1 Years Smoked: 44 (onset 15) e-Cigarette/Vaping Use: Never Used Second Hand Smoke Exposure: No Substance Use Type: Heroin Current occupational status: employed Current occupation: [employer] Current occupational exposures/hazards: Yes Cognitive needs: No Hearing needs: No Vision needs: No Questionnaire PHQ-9 Over the last 2 weeks, how often have you been bothered by any of the following problems? 1. Little interest or pleasure in doing things: more than half the days 2. Feeling down, depressed, or hopeless: more than half the days 3. Trouble falling or staying asleep, or sleeping too much: more than half the days 4. Feeling tired or having little energy: more than half the days 5. Poor appetite or overeating: more than half the days 6. Feeling bad about yourself - or that you are a failure or have let yourself or your family down: more than half the days 7. Trouble concentrating on things, such as reading the newspaper or watching television: not at all 8. Moving or speaking so slowly that other people could have noticed. Or the opposite - being so fidgety or restless that you have been moving around a lot more than usual: not at all 9. Thoughts that you would be better off or of hurting yourself in some way: several days Total score: 13 Depression Screening Interpretation: Positive (denies any si or hi) Depression Screening Follow-up: Existing condition and Declines treatment Depression Screening Done: Yes 95179 - PHQ-9 Billing: Yes Source: Developed by Drs. Dillon Hamilton, Evelyn March, Christian Simon and colleagues, with an educational alicia from [employer]. Thrive Questionnaire Date Thrive assessed: 03/18/24 I am a: Patient What is your living situation today?: I have a steady place to live Within the past 12 months, did the food you bought not last and you didn't have the money to get more?: Never true Within the past 12 months, did you worry whether your food would run out before you got money to buy more?: Never true Do you have trouble paying for medicines?: No Do you have trouble getting transportation to medical appointments?: No Do you have trouble paying your heating and electricity bill?: No Do you have trouble taking care of your child, family member or friend?: No Do you have trouble with day-to-day activities such as bathing, preparing meals, shopping, managing finances, etc.?: No Are you currently unemployed and looking for a job?: No Are you interested in more education?: No Please select the resources that you would like help with: None Currently or been in a relationship where the following occur: No concerns reported THRIVE Score: 0 AUDIT C Alcohol Use Questionnaire (AUDIT-C) 1. How often do you have a drink containing alcohol?: Monthly or less 2. How many drinks containing alcohol do you have on a typical day when you are drinking?: 1 or 2 3. How often do you have six or more drinks on one occasion?: Never Total Score: 1 Score Reviewed/Action Taken: Yes NAMITA-7 AMB Questionnaire NAMITA-7 Date NAMITA - 7 assessed: 03/18/24 Feeling nervous, anxious, or on edge: 1 = Several days Not being able to stop or control worryin = Several days Worrying too much about different things: 1 = Several days Trouble relaxin = Several days Being so restless that it is hard to sit still: 0 = Not at all Becoming easily annoyed or irritable: 0 = Not at all Feeling afraid as if something awful might happen: 0 = Not at all Total NAMITA-7 score (0-4 normal; 5-9 mild; 10-14 moderate; 15-21 severe): 4 Source: Developed by Drs. Dillon Hamilton, Evelyn March, Christian Simon and colleagues, with an educational alicia from [employer]. NAMITA-7 Assessment Billing NAMITA-7 Assessment Tool: NAMITA-7 Assessment 79895 Physical exam (Primary Care) Vital Signs: Last Vital Signs Pulse 72 03/18/24 12:18 BP 160/90 H 03/18/24 12:18 Pulse Ox 98 03/18/24 12:18 Oxygen Delivery Method Room Air 03/18/24 12:18 BMI result Body Mass Index 25.9 Tobacco/Smoking Status: Tobacco use Status Tobacco use date assessed 03/18/24 03/18/24 12:20 Patient Tobacco Use Status Current everyday Tobacco 03/18/24 12:19 e-Cigarette/Vaping Use Never Used 03/18/24 12:19 PHQ-9: PHQ-9 Score PHQ-9: Total score 13 03/18/24 12:26 Depression Screening Interpretation: Positive (denies any si or hi) Depression Screening Follow-up: Existing condition and Declines treatment Thrive Assessment: Date of Thrive Assessment Date Thrive assessed 03/18/24 03/18/24 12:20 Currently or been in a relationship where the following occur: No concerns reported Const General: cooperative and ill appearing Resp Other: scattered wheezes, dim Cardio Rate: regular rate Rhythm: regular rhythm Heart sounds: S1 normal heart sound present and S2 normal heart sound present GI Other: Bowel sounds are hyperactive, abdomen is soft throughout, tenderness noted mostly to left lower quadrant with palpation. Psych Appearance: grossly normal Mental Status: mental status grossly normal Speech and movement: Normal speech and movement present Coding Level of Care Code Est Pt Level 3 (85997) Diagnoses LLQ pain R10.32 Additional Codes NAMITA-7 Assessment Billing - NAMITA-7 Assessment Tool: NAMITA-7 Assessment 55821 ([id number]) PHQ-9 - 06656 - PHQ-9 Billing: Yes ([id number]) Assessment & Plan Assessment & Plan (1) LLQ pain: Code(s): R10.32 - Left lower quadrant pain Category: Medical Plan . Medications: New pantoprazole 20 mg PO DAILY 30 days 30 tabs 3RF
== END 2024-03-18 14:05 | disposition home or self-care (01) ==
PROVIDERS: PCP Nurse Practitioner Family; Visit Provider Nurse Practitioner Family
DX: R10.32 Left lower quadrant pain (principal)

== ENCOUNTER → 2024-03-18 12:12 | Outpatient (BNVA) | payer OTHER, SELFPAY | PROVIDERS: PCP Nurse Practitioner Family; Visit Provider Nurse Practitioner Family | DX: R10.32 Left lower quadrant pain (principal) | CPT/HCPCS: 96127 ==

== ENCOUNTER 2024-04-12 09:47 | Outpatient (AMB) | payer OTHER, SELFPAY ==
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
[2024-04-12 10:14] VITALS: BP 138/58; PULSE 62; O2SAT 92; BMI 25.4
== END 2024-04-12 11:13 | disposition home or self-care (01) ==
PROVIDERS: PCP Nurse Practitioner Family; Visit Provider Student in an Organized Health Care Education/Training Program
DX: E27.8 Other specified disorders of adrenal gland (principal)
CPT/HCPCS: 99204

== ENCOUNTER → 2024-04-12 09:47 | Outpatient (BNVA) | payer OTHER, SELFPAY | PROVIDERS: PCP Nurse Practitioner Family; Visit Provider Student in an Organized Health Care Education/Training Program ==

== ENCOUNTER 2024-05-01 08:23 | Outpatient (REF) | payer OTHER, SELFPAY ==
[2024-05-01 11:19] LABS: Anion Gap 13 (12-20); Blood Urea Nitrogen 16 mg/dL (9-16); Calcium 9.9 mg/dL (8.4-10.2); Carbon Dioxide 29 mmol/L (22-29); Chloride 105 mmol/L (96-108); Estimated Glomerular Filt Rate > 60; Glucose Random 103 mg/dL (60-115); Potassium 4.2 mmol/L (3.3-5.1); Sodium 143 mmol/L (135-145)
[2024-05-01 11:37] LABS: Cortisol Random 13.8 ug/dL
[2024-05-03 13:34] LABS: DHEA Sulfate 71 mcg/dL (20-217)
[2024-05-07 05:59] LABS: Metanephrine, Free 49 pg/mL (<=57); Normetanephrines, Free 40 pg/mL (<=148); Total Metanephrine, Free 89 pg/mL (<=205)
[2024-05-07 20:58] LABS: Adrenocorticotropic Hormone 5 pg/mL (6-50)
[2024-05-10 12:09] LABS: Renin 0.49 ng/mL/h (0.25-5.82)
[2024-05-14 09:43] LABS: Dexamethasone <40 ng/dL
== END 2024-05-01 08:24 | disposition home or self-care (01) ==
LOC: HO.LAB 08:23
PROVIDERS: PCP Nurse Practitioner Family; Visit Provider Student in an Organized Health Care Education/Training Program
DX: E27.8 Other specified disorders of adrenal gland (principal)
CPT/HCPCS: 36415; 80048; 80299; 82024; 82088; 82533; 82627; 83835; 84244

== ENCOUNTER 2024-05-08 07:52 | Outpatient (REF) | payer OTHER, SELFPAY ==
--- OUTSIDE RECORDS SUMMARY | 2024-05-08 07:53 | XMS_ITS | Clinical Summary ---
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 Name Role Phone Unavailable Primary Care Provider Unavailabl e Social History Tobacco Use Types Packs/Day Years Used Date Smoking Tobacco: Never Assessed Sex and Gender Information Value Date Recorded Sex Assigned at Not on file Legal Sex Male 6:25 PM EST Gender Identity Not on file Sexual Orientation Not on file Plan of Treatment Health Maintenance Due Date Last Done Comments DTaP,Tdap,and Td Vaccines (1 - Tdap) 1981 Pneumococcal Vaccine: 50+ Ye ars (1 of 1 - PCV) 2012 Zoster Vaccines (1 of 2) 2012 COVID-19 Vaccine (1 - 2023-2 5 season) 2023 Influenza Vaccine (#1) 2023 RSV Immunization Patients 60 + Years Old (1 - 1-dose 75+ series) 2037 HIB Vaccines Aged Out No longer eligi ble based on patient's age to complete this topic HPV Vaccines Aged Out No longer eligi ble based on patient's age to complete this topic Hepatitis A Vaccines Aged Out No long er eligible based on patient's age to complete this topic Hepatitis B Vaccines Aged Out No long er eligible based on patient's age to complete this topic IPV Vaccines Aged Out No longer eligi ble based on patient's age to complete this topic MMR Vaccines Aged Out No longer eligi ble based on patient's age to complete this topic Meningococcal ACWY Vaccine Aged Out N o longer eligible based on patient's age to complete this topic Meningococcal B Vacine Aged Out No lo nger eligible based on patient's age to complete this topic Pneumococcal Vaccine: Pediat rics (0 to 5 Years) and At-Risk Patients (6 to 64 Years) Aged Out No longer eligible b ased on patient's age to complete this topic RSV Immunization Patients Un heber 20 months Aged Out No longer eligible b ased on patient's age to complete this topic Varicella Vaccines Aged Out No longer eligible based on patient's age to complete this topic
[2024-05-08 11:09] LABS: Cortisol Random 1.9 ug/dL
[2024-05-13 13:58] LABS: Adrenocorticotropic Hormone <5 pg/mL (6-50)
[2024-05-21 16:39] LABS: Dexamethasone 474 ng/dL
== END 2024-05-08 07:53 | disposition home or self-care (01) ==
LOC: HO.LAB 07:52
PROVIDERS: PCP Nurse Practitioner Family; Visit Provider Student in an Organized Health Care Education/Training Program
DX: E27.8 Other specified disorders of adrenal gland (principal)
CPT/HCPCS: 36415; 80299; 82024; 82533

== ENCOUNTER 2024-05-26 13:06 | Outpatient (AMB) | payer OTHER, SELFPAY ==
[2024-05-26 13:10] VITALS: BP 118/50; PULSE 63; O2SAT 96
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
--- OUTSIDE RECORDS SUMMARY | 2024-05-26 15:34 | XMS_ITS | Clinical Summary ---
Author Organization [facility] ity Address [address] [place] [address] Care Team Providers Care Timber Surveyor Name Role Phone Unavailable Primary Care Provider [...]
== END 2024-05-26 13:41 | disposition home or self-care (01) ==
LOC: HO.ENCR 13:07
PROVIDERS: PCP Nurse Practitioner Family; Visit Provider Student in an Organized Health Care Education/Training Program
DX: E27.8 Other specified disorders of adrenal gland (principal)
CPT/HCPCS: 99213

== ENCOUNTER 2024-05-28 12:44 | Outpatient (AMB) | payer OTHER, SELFPAY ==
[2024-05-28 12:56] VITALS: BP 125/58; PULSE 57; BMI 24.2
--- NOTE | 2024-05-28 12:56 | MHC.OFFVIS ---
Vital Signs 05/28/24 12:56 Height 6 ft Weight 178 lb 9.191 oz BMI 24.2 BP 125/58 L Blood Pressure Location Lt brachial Position Sitting Pulse 57 Intake Visit Reasons: abd pain Intake Note: Hermes presents in office today inday for abdominal pains. CC: Having lots of gas pains. He states he feels lousy today and having abdominal pains. He states he cancelled his last colonoscopy due to the fact he is unable to fast. Personal Lines Sales Executive Required: No Allergies No Known Allergies [No Known Allergies*] Allergy (Verified 05/26/24 13:12) HPI Comments Details: 62 y.o M with PMH of COPD, HTN, SVT (was prev est by Kenya Brice at [facility]), polysubstance use disorder who is here for blood in stool. Pt reports having hard stools that are like pellets +/- straining. Stool is brown but would see blood on it and on wiping. Also reports R lower right quadrant pain without nausea or weight loss. In fact has been gaining weight. Has been taking nexium and mylanta which seemed to have helped. Constipation is better with milk of mag PRN. Has never had a colo. No fam hx of CRC. Pt himself has smoking hx - roughly 55 PY hx. Remote use of etOH use disorder. Sober for 8 years. Used to drink hard liquor 12-15 times a day. Not aware of any liver issues. Also uses heroin - sniffs. Prev hx of crack/cocaine use around 5 years. In terms of cardiac hx, has hx of SVT, V TAch and PVCs + severe HTN - started on diltiazem, clonidine and amlodipine. BB avoided due to hx of cocaine use in past. Prev echo normal (2020). Was seen by Kevin. 05/28/24: Here for follow up. Last seen in 2023. Lost to follow up since. Arranged colo 04/2024 which the pt called to cancel. Pt reports main issue now is abd discomfort, bloating and increased borborygmi. Has early satiety. Lost almost 18 lbs in 3 months. Still occ sees blood in stool. Stools fluctuate between black and watery to normal. Has been seen by cardiology and cleared for procedure. Recently seen at [facility] for the same sx - CT negative for GI but has adrenal abnl - seeing endocrine. [facility] Medical History SVT (supraventricular tachycardia) Palpitations Adrenal nodule Pulmonary nodules Depression HTN (hypertension) COPD (chronic obstructive pulmonary disease) Atherosclerotic cardiovascular disease Colon cancer screening declined Substance abuse Surgical History Hx of nephrolithotomy with removal of calculi H/O hand surgery History of open reduction and internal fixation (ORIF) procedure Family History Father No problems noted. Family/Other No problems noted. Other Substance use disorder Social History Household Members Other:: brother Housing: House Are you a primary healthcare market consultant to a significant other at home: No Do you presently have visiting nurse or other home services: No Alcohol intake: former Patient Tobacco Use Status: Current everyday Tobacco user Cigarette Packs Per Day: 1 Years Smoked: 44 (onset 15) e-Cigarette/Vaping Use: Never Used Second Hand Smoke Exposure: No Substance Use Type: Heroin Current occupational status: employed Current occupation: [employer] Current occupational exposures/hazards: Yes Cognitive needs: No Hearing needs: No Vision needs: No Review of Systems Const All systems reviewed & are unremarkable except as noted in HPI and below Physical Exam Vital Signs: Last Vital Signs Pulse 57 05/28/24 12:56 BP 125/58 L 05/28/24 12:56 BMI result Body Mass Index 24.2 No apparent distress Nonicteric Abdomen soft, nondistended Alert and oriented x3, normal gait Results Reviewed Results Reviewed: Labs from [facility] reviewed. H/H low but stable. Normocytic. LFTs normal. Assessment & Plan Assessment & Plan (1) Abdominal pain: Code(s): R10.9 - Unspecified abdominal pain Category: Medical Qualifiers: Abdominal location: lower abdomen, unspecified Qualified Code(s): R10.30 - Lower abdominal pain, unspecified (2) Bright red rectal bleeding: Code(s): K62.5 - Hemorrhage of anus and rectum Category: Medical (3) Change in bowel habit: Code(s): R19.4 - Change in bowel habit Category: Medical (4) Early satiety: Code(s): R68.81 - Early satiety Category: Medical (5) Unintentional weight loss: Code(s): R63.4 - Abnormal weight loss Category: Medical Plan Reviewed with the pt that constellation of sx concerning for underlying malignancy. Other ddx include PUD, GOO, dysmotility such as delayed gastric emptying. Plan: - Urgent egd/colo to be booked - PEG prep Rxed and handout given - No indication to repeat CT - reviewed from Apr 2024 - at [facility] Follow up after scopes Medications: New peg 3350-electrolytes 236-22.74-6.74 -5.86 gram (Golytely) as per split prep instructions, until fecal effluent is clear 240 mL PO Q10M 4,000 mL 0RF colonoscopy Coding Level of Care Code Est Pt Level 4 (95894) Diagnoses Lower abdominal pain R10.30 Abdominal location: lower abdomen, unspecified Bright red rectal bleeding K62.5 Change in bowel habit R19.4 Early satiety R68.81 Unintentional weight loss R63.4
== END 2024-05-28 14:36 | disposition home or self-care (01) ==
LOC: HO.HGI 12:45
PROVIDERS: PCP Nurse Practitioner Family; Visit Provider Internal Medicine
DX: R10.30 Lower abdominal pain, unspecified (principal); K62.5 Hemorrhage of anus and rectum; R19.4 Change in bowel habit; R68.81 Early satiety; R63.4 Abnormal weight loss
CPT/HCPCS: 99214

== ENCOUNTER 2024-06-05 08:16 | Outpatient (REF) | payer OTHER, SELFPAY ==
--- OUTSIDE RECORDS SUMMARY | 2024-06-05 08:18 | XMS_ITS | Clinical Summary ---
Author Organization [facility] ity Address [address] [place] [address] Care Team Providers Care Farmworker Name Role Phone Unavailable Primary Care Provider [...]
[2024-06-05 12:04] LABS: Alanine Aminotransferase 21 U/L (0-40); Albumin Level 4.3 g/dL (3.5-5.0); Alkaline Phosphatase 90 U/L (39-117); Aspartate Amino Transferase 26 U/L (5-37); Bilirubin Direct 0.1 mg/dL (0.0-0.5); Bilirubin Total 0.3 mg/dL (0.0-1.0); Cholesterol 127 mg/dL (<200); HDL Cholesterol 47 mg/dL (>40); LDL Cholesterol Calculated 62 mg/dL (<100); Total Protein 7.3 g/dL (6.5-8.0); Triglycerides 94 mg/dL (<150)
== END 2024-06-05 08:17 | disposition home or self-care (01) ==
LOC: HO.HMGCLDS 08:16
PROVIDERS: PCP Nurse Practitioner Family; Visit Provider Internal Medicine
DX: I25.10 Atherosclerotic heart disease of native coronary artery without angina pectoris (principal)
CPT/HCPCS: 36415; 80061; 80076

== ENCOUNTER 2024-06-28 08:18 | Outpatient (AMB) | payer OTHER, SELFPAY ==
--- OUTSIDE RECORDS SUMMARY | 2024-06-28 08:36 | XMS_ITS | Clinical Summary ---
Author Organization [facility] ity Address [address] [place] [address] Care Team Providers Care Dry House Worker Name Role Phone Unavailable Primary Care Provider [...] - 2023-2 5 season) 2023 Influenza Vaccine (Season Ended) 2024 RSV Immunization Adult Patie nts (1 - [...] age to complete this topic Meningococcal B Vaccine Aged Out No l onger eligible based on patient's age to complete [...]
--- NOTE | 2024-06-28 08:56 | A.OFFVIS_ITS ---
Vital Signs 06/28/24 08:57 Height 6 ft Weight 186 lb 1.122 oz BMI 25.2 BP 120/56 L Blood Pressure Location Lt brachial Position Sitting Pulse 63 Pulse Source Pulse Oximeter Intake Visit Reasons: 6 month follow-up Preschool Adviser Required: No Accompanied by: Self / Same As Patient Allergies No Known Allergies [No Known Allergies*] Allergy (Verified 05/26/24 13:12) Medication List - Last Reconciled 06/28/24 by Jose Fitzpatrick MD albuterol sulfate 90 mcg/actuation (Ventolin HFA) 2 puffs inhalation Q6H clonidine HCl 0.2 mg PO TID diltiazem HCl 60 mg PO BID 90 days hydrochlorothiazide 25 mg PO DAILY ibuprofen 400 mg PO DAILY PRN [methadone 60 mg PO DAILY] pantoprazole 20 mg PO DAILY 30 days peg 3350-electrolytes 236-22.74-6.74 -5.86 gram (Golytely) 240 mL PO Q10M rosuvastatin 10 mg PO DAILY sertraline 50 mg PO DAILY HPI Comments Details: Hermes returns for follow-up. To recall, he was originally seen in consultation regarding preoperative risk stratification for colonoscopy. He has had supraventricular arrhythmias in the past and for that reason, he is on diltiazem. Also has uncontrolled hypertension according to him and he has had very high blood pressures approaching 200 mm Hg in the past but recent blood pressures are much improved. He has long history of heroin use. He states that the last time he used this was not February 2024. He is now on methadone. Denies any recent cocaine use. History of smoking. He states he was also using a lot of alcohol in the past but nothing last few years. Overall, denies any clear-cut cardiac symptoms. Feels okay. He has still not had the colonoscopy. He states it is coming up soon. He has completed an echocardiogram, Holter, coronary CTA. [facility] Medical History SVT (supraventricular tachycardia) Palpitations Adrenal nodule Pulmonary nodules Depression HTN (hypertension) COPD (chronic obstructive pulmonary disease) Atherosclerotic cardiovascular disease Colon cancer screening declined Substance abuse Surgical History Hx of nephrolithotomy with removal of calculi H/O hand surgery History of open reduction and internal fixation (ORIF) procedure Family History Father No problems noted. Family/Other No problems noted. Other Substance use disorder Social History Household Members Other:: brother Housing: House Are you a primary child care centre manager to a significant other at home: No Do you presently have visiting nurse or other home services: No Alcohol intake: former Patient Tobacco Use Status: Current everyday Tobacco user Cigarette Packs Per Day: 1 Years Smoked: 44 (onset 15) e-Cigarette/Vaping Use: Never Used Second Hand Smoke Exposure: No Substance Use Type: Heroin Current occupational status: employed Current occupation: [employer] Current occupational exposures/hazards: Yes Cognitive needs: No Hearing needs: No Vision needs: No Review of Systems Const Denies chills, Denies fatigue, Denies fever(s), Denies frequent falls, Denies weakness, Denies weight gain and Denies weight loss ENT Denies dizziness Card Denies chest pain, Denies leg edema, Denies lightheadedness, Denies palpitations, Denies dyspnea and Denies dyspnea on exertion Resp Denies cough, Denies dyspnea and Denies dyspnea on exertion GI Denies hematochezia Musc Denies abnormal gait, Denies muscle weakness, Denies numbness, Denies radiating pain into limb and Denies tingling Neuro Denies abnormal gait, Denies dizziness, Denies frequent falls, Denies numbness, Denies tingling and Denies weakness Endo Denies fatigue and Denies palpitations Physical Exam Vital Signs: Last Vital Signs Pulse 63 06/28/24 08:57 BP 120/56 L 06/28/24 08:57 BMI result Body Mass Index 25.2 Const General: comfortable and no acute distress Orientation/consciousness: patient oriented x3 HEENT Other: Unremarkable Head: Yes normal to inspection Neck Neck: Yes normal visual inspection Chest Chest palpation & inspection: normal inspection of the chest Resp Auscultation: clear to auscultation bilaterally Cardio Palpation: normal PMI Heart sounds: S1 normal heart sound present, S2 normal heart sound present, no gallops, no murmurs and no rubs GI Palpation (GI): Soft to palpation Back/Spine/Pelvis Other: unremarkable Skin General skin exam: no rashes or lesions noted Neuro General: patient oriented x3 Extrem General: Yes normal to inspection Psych Mental Status: mental status grossly normal Assessment & Plan Assessment & Plan (1) Polysubstance abuse: Code(s): F19.10 - Other psychoactive substance abuse, uncomplicated Category: Medical (2) Supraventricular tachycardia: Code(s): I47.10 - Supraventricular tachycardia, unspecified Category: Medical (3) Atherosclerotic cardiovascular disease: Code(s): I25.10 - Atherosclerotic heart disease of upper [place] coronary artery without angina pectoris Category: Medical (4) Preoperative cardiovascular examination: Code(s): Z01.810 - Encounter for preprocedural cardiovascular examination Category: Medical Plan Cardiac studies reviewed. Baseline EKG is unremarkable. In a previous Holter from 2020, the preliminary report describes 7 minutes of atrial fibrillation, but unclear if it is accurate or not. In the cardiology visit note, that was not mentioned. In the repeat Holter, underlying rhythm is sinus with an average rate of 59/Min. Rare supraventricular and ventricular ectopy. In the echocardiogram, LVEF is 65-70%. No significant valvular findings. In the coronary CTA, somewhat of diffuse mild to low moderate stenosis in the LAD and mild stenosis in the RCA. With regard to the coronary disease, he is stable without any angina. Continue statins. Cholesterol is well controlled. With regard to the question of atrial arrhythmias, stable on diltiazem. No changes for that. Blood pressure is also stable on the current regimen. Previously cleared as low risk for colonoscopy. No changes with that. Patient Instructions: - Continue taking your cholesterol medication as prescribed. - Monitor your health and contact PCP for follow-ups on health concerns. - Avoid cigarette smoking and work on reducing reliance on methadone. - Call if new cardiac symptoms occur. - If any urgent health changes arise, seek medical attention immediately. Coding Level of Care Code Est Pt Level 4 (76868) Complex EM visit Add On G2211 Diagnoses Polysubstance abuse F19.10 Supraventricular tachycardia I47.10 Atherosclerotic cardiovascular disease I25.10 Preoperative cardiovascular examination Z01.810
[2024-06-28 08:57] VITALS: BP 120/56; PULSE 63; BMI 25.2
== END 2024-06-28 09:14 | disposition home or self-care (01) ==
LOC: HO.HCS 08:19
PROVIDERS: PCP Nurse Practitioner Family; Visit Provider Internal Medicine
DX: F19.10 Other psychoactive substance abuse, uncomplicated (principal); I47.10 Supraventricular tachycardia, unspecified; I25.10 Atherosclerotic heart disease of native coronary artery without angina pectoris; Z01.810 Encounter for preprocedural cardiovascular examination
CPT/HCPCS: 99214

== ENCOUNTER 2024-07-06 09:22 | Day surgery (SDC) | payer OTHER, SELFPAY ==
--- OUTSIDE RECORDS SUMMARY | 2024-06-03 06:53 | XMS_ITS | Clinical Summary ---
Author Organization [facility] ity Address [address] [place] [address] Care Team Providers Care Plug Drill Operator Name Role Phone Unavailable Primary Care Provider [...] 2023 Influenza Vaccine (#1) 2023 RSV Immunization Adult Patie nts (1 - 1-dose 75+ series) 2037 HIB [...]
[2024-07-01 15:08] VITALS: BMI 25.2
--- NOTE | 2024-07-05 09:09 | P.CONAN_ITS ---
Documented by User: Jazmin Donnelly NP 07/05/24 09:10 HPI - Anesthesia Eval Consult details Narrative: 63yo M for Upper Endoscopy and Colonoscopy Cardiac optimized. [place] [facility] [place] [facility] [place] for SVT, ASCVD Methadone daily for polysub PMFSH Active Problems Active Problems: All Active Problems Unintentional weight loss (Acute) Early satiety (Acute) Change in bowel habit (Acute) Lytic bone lesion of hip (Acute) Large adrenal gland (Acute) LLQ pain (Acute) Serum calcium elevated (Acute) Nephrolithiasis (Acute) Abdominal pain (Acute) Umbilical hernia (Acute) Atherosclerotic cardiovascular disease (Acute) Preoperative cardiovascular examination (Acute) Polysubstance abuse (Acute) Bright red rectal bleeding (Acute) Supraventricular tachycardia (Acute) Multiple pulmonary nodules (Acute) Adrenal nodule (Acute) Abdominal discomfort (Acute) Traumatic ecchymosis of left forearm (Acute) Elevated WBC count (Acute) HTN (hypertension) (Acute) Major depression, recurrent (Acute) COPD (chronic obstructive pulmonary disease) (Acute) Palpitations (Acute) Screening for colon cancer (Acute) Screening PSA (prostate specific antigen) (Acute) Physical exam (Acute) Smoker (Acute) Colon cancer screening declined (Acute) Past Medical History Medical History SVT (supraventricular tachycardia) Palpitations Adrenal nodule Pulmonary nodules Depression HTN (hypertension) COPD (chronic obstructive pulmonary disease) Atherosclerotic cardiovascular disease Colon cancer screening declined Substance abuse Family History Family History Father No problems noted. Family/Other No problems noted. Other Substance use disorder Family history of problems with anesthesia: No Surgical History Surgical History Hx of nephrolithotomy with removal of calculi H/O hand surgery History of open reduction and internal fixation (ORIF) procedure History of Problems with Anesthesia: No Social History Social History Household Members Other:: brother Housing: House Are you a primary pediatric care coordinator to a significant other at home: No Do you presently have visiting nurse or other home services: No Alcohol intake: former Patient Tobacco Use Status: Current everyday Tobacco user Tobacco use type: Cigarette Cigarette Packs Per Day: 0.5 Cigarettes Per Day: 10.0 Years Smoked: 44 (onset 15) e-Cigarette/Vaping Use: Never Used Second Hand Smoke Exposure: No Use of substances other than those prescribed or required for medical reasons: No Substance Use Type: Heroin Have you been hit, kicked, punched, or otherwise hurt by someone within the past year? If so, by whom?: No Are you DNR?: No Advance Directives: No Advance Directives Information Provided: Yes Advance Directives on File: No Poor oral hygiene: No Current occupational status: employed Current occupation: [employer] Current occupational exposures/hazards: Yes Cognitive needs: No Hearing needs: No Vision needs: No Meds Allergies Allergy/AdvReac Type Severity Reaction Status Date / Time No Known Allergies Allergy Verified 05/26/24 13:12 [No Known Allergies*] Home Medications ?Medication ?Instructions ?Recorded ?Confirmed ?Last Taken ?Type ibuprofen 400 mg tablet 400 mg PO DAILY PRN Pain 10/14/23 07/01/24 11/13/23 History sertraline 50 mg tablet 50 mg PO DAILY 05/26/24 07/01/24 Unknown History methadone 60 mg PO DAILY 05/28/24 07/01/24 07/06/24 History Exam Height,Weight and Vital Signs: Height 6 ft Weight 84.368 kg Narrative Narrative: Per 06/28/24 Cardiology note: Cardiac studies reviewed. Baseline EKG is unremarkable. In a previous Holter from 2020, the preliminary report describes 7 minutes of atrial fibrillation, but unclear if it is accurate or not. In the cardiology visit note, that was not mentioned. In the repeat Holter, underlying rhythm is sinus with an average rate of 59/Min. Rare supraventricular and ventricular ectopy. In the echocardiogram, LVEF is 65-70%. No significant valvular findings. In the coronary CTA, somewhat of diffuse mild to low moderate stenosis in the LAD and mild stenosis in the RCA. Assessment and Plan Assessment Anesthesia Assessment: Chart Reviewed Final Anesthetic Review Family History of Problems with Anesthesia: No History of Problems with Anesthesia: No Documented by User: Rebecca Garza MD 07/06/24 12:30 HPI - Anesthesia Eval Consult details Narrative: 63yo M for Upper Endoscopy and Colonoscopy Cardiac optimized. [place] [facility] [place] [facility] [place] for SVT, ASCVD Methadone daily for polysub. Urine toxicology positive for methadone and fentanyl. Patient vehemently denies drug use since January. PMFSH Active Problems Active Problems: All Active Problems Unintentional weight loss (Acute) Early satiety (Acute) Change in bowel habit (Acute) Lytic bone lesion of hip (Acute) Large adrenal gland (Acute) LLQ pain (Acute) Serum calcium elevated (Acute) Nephrolithiasis (Acute) Abdominal pain (Acute) Umbilical hernia (Acute) Atherosclerotic cardiovascular disease (Acute) Preoperative cardiovascular examination (Acute) Polysubstance abuse (Acute) Bright red rectal bleeding (Acute) Supraventricular tachycardia (Acute) Multiple pulmonary nodules (Acute) Adrenal nodule (Acute) Abdominal discomfort (Acute) Traumatic ecchymosis of left forearm (Acute) Elevated WBC count (Acute) HTN (hypertension) (Acute) Major depression, recurrent (Acute) COPD (chronic obstructive pulmonary disease) (Acute). Does not use inhalers Palpitations (Acute) Screening for colon cancer (Acute) Screening PSA (prostate specific antigen) (Acute) Physical exam (Acute) Smoker (Acute) Colon cancer screening declined (Acute) Past Medical History Medical History SVT (supraventricular tachycardia) Palpitations Adrenal nodule Pulmonary nodules Depression HTN (hypertension) COPD (chronic obstructive pulmonary disease) Atherosclerotic cardiovascular disease Colon cancer screening declined Substance abuse Family History Family History Father No problems noted. Family/Other No problems noted. Other Substance use disorder Family history of problems with anesthesia: No Surgical History Surgical History Hx of nephrolithotomy with removal of calculi H/O hand surgery History of open reduction and internal fixation (ORIF) procedure History of Problems with Anesthesia: No Social History Social History Household Members Other:: brother Housing: House Are you a primary pediatric care coordinator to a significant other at home: No Do you presently have visiting nurse or other home services: No Alcohol intake: former Patient Tobacco Use Status: Current everyday Tobacco user Tobacco use type: Cigarette Cigarette Packs Per Day: 0.5 Cigarettes Per Day: 10.0 Years Smoked: 44 (onset 15) e-Cigarette/Vaping Use: Never Used Second Hand Smoke Exposure: No Use of substances other than those prescribed or required for medical reasons: No Substance Use Type: Heroin Have you been hit, kicked, punched, or otherwise hurt by someone within the past year? If so, by whom?: No Are you DNR?: No Advance Directives: No Advance Directives Information Provided: Yes Advance Directives on File: No Poor oral hygiene: No Current occupational status: employed Current occupation: [employer] Current occupational exposures/hazards: Yes Cognitive needs: No Hearing needs: No Vision needs: No Meds Allergies Allergy/AdvReac Type Severity Reaction Status Date / Time No Known Allergies Allergy Verified 05/26/24 13:12 [No Known Allergies*] Home Medications ?Medication ?Instructions ?Recorded ?Confirmed ?Last Taken ?Type ibuprofen 400 mg tablet 400 mg PO DAILY PRN Pain 10/14/23 07/01/24 11/13/23 History sertraline 50 mg tablet 50 mg PO DAILY 05/26/24 07/01/24 Unknown History methadone 60 mg PO DAILY 05/28/24 07/01/24 07/06/24 History Exam Height,Weight and Vital Signs: Height 6 ft Weight 84.368 kg Vital Signs Temp Pulse Resp BP Pulse Ox O2 Del Method 07/06/24 10:52 98.0 F 59 16 170/74 H 96 Room Air Pertinent Lab Results Pertinent Lab Results: Lab Results 07/06/24 Range/Units 10:45 Urine Opiates Screen Not Detected (Not Detect) Ur Buprenorphine Scrn Not Detected (Not Detect) ng/mL Ur Oxycodone Screen Not Detected (Not Detect) ng/mL Urine Methadone Screen Positive H (Not Detect) ng/mL Urine Fentanyl Screen POSITIVE H (Not Detect) Ur Barbiturates Screen Not Detected (Not Detect) Ur Phencyclidine Scrn Not Detected (Not Detect) Ur Amphetamines Screen Not Detected (Not Detect) U Benzodiazepines Scrn Not Detected (Not Detect) Urine Cocaine Screen Not Detected (Not Detect) U Marijuana (THC) Screen Not Detected (Not Detect) Airway Mallampati Class: II TM Dist: >3cm Neck ROM: Full Loose/Missing/Broken Teeth: Yes (Edentulous) Heart: RRR Lungs: CTAB Assessment and Plan Assessment Anesthesia Assessment: Anesthesia Plan Discussed and Chart Reviewed Final Anesthetic Review Family History of Problems with Anesthesia: No History of Problems with Anesthesia: No NPO: Yes ASA Class: III Final Preanesthetic Review: No Changes in Pt Med Stat, Meds/Allgs Chart Reviewed, Consent Obtained/Reviewed and Anes Risks/Benef Reviewed Patient Risk: Intermediate Procedure Risk: Low Assessment/Block/Sedation in SS: Assess/Block/Sedation-SS Anesthetic Plan Anesthetic Plan: TIVA Disposition: Standard PACU
[2024-07-06 10:40] VITALS: BMI 24.2
[2024-07-06 10:52] VITALS: BP 170/74; PULSE 59; RESP 16; TEMP 36.7; O2SAT 96
--- NOTE | 2024-07-06 10:57 | MHC.SHP ---
Pre-Procedural Eval Section A - 24 Hr Update-Section A only Date of Service: 07/06/24 Section B - Complete if H&P > 30 days Chief Complaint: Abnormal weight loss, abd pain Details of Present Illness: SVT (supraventricular tachycardia) Palpitations Adrenal nodule Pulmonary nodules Depression HTN (hypertension) COPD (chronic obstructive pulmonary disease) Atherosclerotic cardiovascular disease Colon cancer screening declined Substance abuse Surgical History Hx of nephrolithotomy with removal of calculi H/O hand surgery History of open reduction and internal fixation (ORIF) procedure Present Medications: see Short Stay Collaborative assessment Allergies: Allergies Allergy/AdvReac Type Severity Reaction Status Date / Time No Known Allergies Allergy Verified 05/26/24 13:12 [No Known Allergies*] Review of Systems Review of Systems Comment: Ten point ROS negative Exam Exam Comment: Gen appear: No acute distress HEENT: no icterus Chest: No overt resp distress Abd: soft, nontender, nondistended Psych: Stable affect, answering questions appropriately Neuro: A/Ox3 noted to move all extremities spontaneously Ext: no peripheral edema Plan Diagnosis/Plan: Unchanged I have reviewed the history and physical and performed a pertinent physical examination on my patient. No changes have occurred unless specified. Time Spent With Patient Time: Total time managing care of this patient today ____ minutes.
[2024-07-06] MEDS: Lactated Ringers 1,000 ML 100 ML IVCONT (11:00)
[2024-07-06 11:17] LABS: Amphetamine Screen Urine Not Detected (Not Detect); Barbiturates, Urine Not Detected (Not Detect); Benzodiazepines Screen Urine Not Detected (Not Detect); Buprenorphine Scr Not Detected (Not Detect); Cannabinoid Screen Urine Not Detected (Not Detect); Cocaine Screen Urine Not Detected (Not Detect); Fentanyl, urine POSITIVE (Not Detect); Methadone Screen, Urine Positive (Not Detect); Opiate Screen Urine Not Detected (Not Detect); Oxycodone Screen Urine Not Detected (Not Detect); Phencyclidine Screen Urine Not Detected (Not Detect)
[2024-07-06 12:40] VITALS: BP 147/71; PULSE 51; RESP 12; TEMP 36.7; O2SAT 94
--- NOTE | 2024-07-06 12:43 | P.OPN-COLO_ITS ---
Colonoscopy Operative Note Operative Note Date of Service: 07/06/24 Narrative: Procedure: Upper endoscopy and colonoscopy Indication: Abd pain, change in bowel habits, unintentional weight loss Endoscopist: Alexandrea Eddy MD Anesthesia Provider: Dr Rebecca Garza Anesthesia type: MAC Instrument: [id number] and [id number] EGD Procedure:?? The procedure, indications, preparation and potential complications were reviewed with the patient, who indicated understanding and gave written informed consent to proceed. The endoscope was introduced through the mouth, and advanced to the 2nd part of the duodenum. The mucosa was carefully examined on slow withdrawal of the endoscope. The patient tolerated the procedure well. There were no immediate c omplications.? EGD Findings:? * Esophagus:? Normal esophageal mucosa was noted. The Z-line was at 44 cm. * Stomach:? Normal gastric mucosa with focal erythema in the proximal fundus along the greater curvature. Retroflexion was performed in the cardia. Cold forceps biopsies were taken for gastric mapping as per Christine protocol. * Duodenum:?Erythema, edema and superficial aphthous ulcerations noted throughout the duodenum to the extent examined. Cold forceps biopsies were taken from the duodenal bulb and 2nd portion of the duodenum for histology. Colonoscopy Procedure:? The patient was then turned for the colonoscopy. A digital rectal exam was performed which was abnormal for external hemorrhoids.? A distal attachment cap was affixed to the tip of the scope and the colonoscope was then inserted through the anus and advanced through the colon and advanced to the cecum at 75 cm and terminal ileum.? Appendiceal orifice and ileocecal valve were identified. Mucosa was carefully examined under high definition white light as the instrument was slowly withdrawn in a retrograde panoramic fashion. Retroflexion was performed in rectum. The procedure was not difficult. The quality of the prep was BBPS: 3+2+2 = adequate Withdrawal time 8 minutes Limitations: No limitations Findings: Mucosa: Normal colon and terminal ileum mucosa. Cold forceps biopsies were taken from the right and left side of the colon to rule out microscopic colitis. Protruding lesions: * Medium internal hemorrhoids without stigmata of recent bleeding. Excavated lesions: * Few diverticula throughout the colon. Impression: 1. Normal esophagus 2. Normal stomach (biopsy) 3. Duodenitis (biopsy) 4. Normal colon and terminal ileum mucosa (biopsy) 5. Internal hemorrhoids 6. Diverticulosis Recommendations:?? * Follow-up path results * Avoid NSAIDs and smoking * H Pylori treatment if biopsies + * Repeat colonoscopy for asymptomatic CRC screening in 10 years.
[2024-07-06 12:45] VITALS: BP 135/66; PULSE 57; RESP 14; O2SAT 96
[2024-07-06 12:50] VITALS: BP 151/73; PULSE 53; RESP 16; O2SAT 96
[2024-07-06 12:55] VITALS: BP 157/69; PULSE 52; RESP 16; O2SAT 96
[2024-07-06 13:00] VITALS: BP 135/78; PULSE 54; RESP 17; TEMP 36.6; O2SAT 96
== END 2024-07-06 13:20 | disposition home or self-care (01) ==
PROVIDERS: Nurse Practitioner; PCP Nurse Practitioner Family; Visit Provider Internal Medicine
PROC: (CPT 45380; principal; 2024-07-06 13:00)
DX: K62.5 Hemorrhage of anus and rectum (principal); R19.4 Change in bowel habit; R10.30 Lower abdominal pain, unspecified; K57.30 Diverticulosis of large intestine without perforation or abscess without bleeding; K64.8 Other hemorrhoids; K29.50 Unspecified chronic gastritis without bleeding; R63.4 Abnormal weight loss; Z68.24 Body mass index [BMI] 24.0-24.9, adult; R68.81 Early satiety; K29.80 Duodenitis without bleeding; J44.9 Chronic obstructive pulmonary disease, unspecified; I25.10 Atherosclerotic heart disease of native coronary artery without angina pectoris; I10 Essential (primary) hypertension; I47.10 Supraventricular tachycardia, unspecified; I49.1 Atrial premature depolarization; R91.8 Other nonspecific abnormal finding of lung field; Z87.442 Personal history of urinary calculi; F11.20 Opioid dependence, uncomplicated; F14.21 Cocaine dependence, in remission; F10.21 Alcohol dependence, in remission; Z79.1 Long term (current) use of non-steroidal anti-inflammatories (NSAID); Z79.899 Other long term (current) drug therapy; Z98.890 Other specified postprocedural states; F17.210 Nicotine dependence, cigarettes, uncomplicated
CPT/HCPCS: 45380; 43239; 80307; 88305; 88342; J1596; J2003; J2704

== ENCOUNTER → 2024-07-06 09:22 | Outpatient (BNV) | payer OTHER, SELFPAY | PROVIDERS: PCP Nurse Practitioner Family; Visit Provider Internal Medicine | DX: R19.4 Change in bowel habit (principal); K57.90 Diverticulosis of intestine, part unspecified, without perforation or abscess without bleeding; K64.8 Other hemorrhoids; R63.4 Abnormal weight loss; K29.80 Duodenitis without bleeding | CPT/HCPCS: 43239; 45380 ==

== ENCOUNTER 2024-07-20 15:05 | Outpatient (AMB) | payer OTHER, SELFPAY ==
--- NOTE | 2024-07-20 15:14 | A.OFFPC_ITS ---
Vital Signs 07/20/24 15:17 Height 6 ft Weight 189 lb BMI 25.6 BP 130/78 Blood Pressure Location Rt brachial Position Sitting Pulse 56 Pulse Source Pulse Oximeter Pulse Oximetry (%) 96 Oxygen Delivery Method Room Air Oxygen Flow Rate 98.0 Intake Visit Reasons: Annual PE Ops Analyst Required: No Accompanied by: Self / Same As Patient Allergies No Known Allergies [No Known Allergies*] Allergy (Verified 07/20/24 16:13) Medication List - Last Reconciled 07/20/24 by DENIA Avila- albuterol sulfate 90 mcg/actuation (Ventolin HFA) 2 puffs inhalation Q6H budesonide-formoterol 80-4.5 mcg/actuation (Symbicort) 2 puffs inhalation BID clonidine HCl 0.2 mg PO TID diltiazem HCl 60 mg PO BID 90 days hydrochlorothiazide 25 mg PO DAILY [methadone 60 mg PO DAILY] pantoprazole 20 mg PO DAILY 30 days rosuvastatin 10 mg PO DAILY sertraline 50 mg PO DAILY Tobacco use date assessed: 07/20/24 Dental Screening Dental Screen Date: 07/20/24 Was dental information given to patient?: Patient declined HPI Annual PE HPI Details History of Present Illness The patient is a 63-year-old male presenting for a routine physical examination related to ongoing chronic health conditions. He has chronic obstructive pulmonary disease (COPD) and uses a prescribed albuterol inhaler up to twice a week. Chronic smoking is a significant factor, and he was part of a low-dose CT scan program for lung health monitoring. Past medical history includes kidney stones, managed in the past by urology with no current issues reported. Regular follow-ups with a construction millwright are conducted due to atherosclerosis. The patient is also monitored by a ware finisher for left lower quadrant abdominal pain, improving with current management. The patient reports stable bilateral adrenal adenomas noted in November 2023 and under endocrinology care. A small umbilical hernia has been noted during the current examination, with no previous treatment interventions suggested. Health Maintenance - Enrollment in low-dose CT scan program for lung health monitoring due to chronic smoking. - Regular colon cancer screenings up to date. - Monitoring and regular follow-ups with gastroenterology for abdominal pain. - Regular cardiology consultation for at herosclerosis monitoring and management. - Endocrinology care for stable bilatera l adrenal adenomas. Social History - Regular smoker of cigarettes for many years. Review of Systems - Respiratory: Reports smoking; using al buterol inhaler up to twice a week. - Gastrointestinal: Reports abdominal pa in in the left lower quadrant; denies additional symptoms such as blood in stool or changes in bowel habits. - Cardiovascular: Denies chest pain. - General: Reports smoking history; arlene es significant weight changes. -denies any si or hi denies any fevers or chills Physical Exam General: Cooperative, healthy appearing, comfortable, no acute distress and well developed Orientation: Patient oriented x3 Limitations: No limitations Head: Normal to inspection Ears: Hearing grossly normal bilaterally Nose: Normal external nose present Face and sinus: Normal facial exam Eyes: Appearance normal, both eyes and all related structures Neck: Normal visual inspection and Yes full ROM Respiratory: Diminished by a lack of moving air Cardiovascular: Regular rate and rhythm. Normal S1 and S2, no carotid bruits noted on auscultation GI: Normal to inspection. Soft to palpation and nontender. Small umbilical hernia noted Skin: No rashes or lesions noted Neuro: Patient oriented x3 Extremities: Normal to inspection Results - Imaging: Bilateral adrenal adenomas st able on November 2023 imaging. Plan For the patient's chronic obstructive pulmonary disease, Symbicort has been prescribed for maintenance, in conjunction with his current albuterol use. Reintegration into the low-dose CT scan program for lung health monitoring is necessary given his smoking history. His kidney stone history doesn't currently require specific follow-ups. The bilateral adrenal adenomas remain stable under endocrinology care. Continue cardiology assessments for atherosclerosis and monitor the noted umbilical hernia. The patient, consulting gastroenterology for abdominal issues, reports improvement, thus continuing with present care is advised. Discussion Notes I discussed the management of the patient's COPD, including prescribing Symbicort to improve symptom control alongside his current use of albuterol. I emphasized the importance of re-entering the low-dose CT program for early detection of potential complications due to chronic smoking. The stability of his adrenal adenomas was emphasized, ensuring the patient remains under invoice coder supervision. Regular cardiology visits for atherosclerosis management were encouraged. While the umbilical hernia would be observed, no intervention is currently required. The patient's abdominal pain management will continue through his ware finisher, with acknowledgment of improvement. Follow-up in these areas was advised. Patient Instructions - Use Symbicort as prescribed for mainte nance of COPD symptoms. - Continue using albuterol as needed, bu t inform me if usage increases. - Rejoin the lung CT scan program for re gular monitoring. - Follow up with gastroenterology as jabier garcia. - Notify me of any changes in the umbili bridget hernia or new symptoms. - Attend regular cardiology appointments . - Cease smoking if possible to improve o verall health. [facility] Medical History SVT (supraventricular tachycardia) Palpitations Adrenal nodule Pulmonary nodules Depression HTN (hypertension) COPD (chronic obstructive pulmonary disease) Atherosclerotic cardiovascular disease Colon cancer screening declined Substance abuse Surgical History Hx of nephrolithotomy with removal of calculi H/O hand surgery History of open reduction and internal fixation (ORIF) procedure Family History Father No problems noted. Family/Other No problems noted. Other Substance use disorder Social History Household Members Other:: brother Housing: House Are you a primary career transition specialist to a significant other at home: No Do you presently have visiting nurse or other home services: No Alcohol intake: former Patient Tobacco Use Status: Current everyday Tobacco user Tobacco use type: Cigarette Cigarette Packs Per Day: 0.5 Cigarettes Per Day: 10.0 Years Smoked: 44 (onset 15) e-Cigarette/Vaping Use: Never Used Second Hand Smoke Exposure: No Substance Use Type: Heroin Current occupational status: employed Current occupation: [employer] Current occupational exposures/hazards: Yes Cognitive needs: No Hearing needs: No Vision needs: No Questionnaire PHQ-9 Over the last 2 weeks, how often have you been bothered by any of the following problems? 1. Little interest or pleasure in doing things: more than half the days 2. Feeling down, depressed, or hopeless: more than half the days 3. Trouble falling or staying asleep, or sleeping too much: more than half the days 4. Feeling tired or having little energy: more than half the days 5. Poor appetite or overeating: more than half the days 6. Feeling bad about yourself - or that you are a failure or have let yourself or your family down: more than half the days 7. Trouble concentrating on things, such as reading the newspaper or watching television: not at all 8. Moving or speaking so slowly that other people could have noticed. Or the opposite - being so fidgety or restless that you have been moving around a lot more than usual: not at all 9. Thoughts that you would be better off or of hurting yourself in some way: several days Total score: 13 Depression Screening Interpretation: Positive (denies any si or hi, pt reports has a psychiatrist) Depression Screening Follow-up: Existing condition and Declines treatment Depression Screening Done: Yes 80766 - PHQ-9 Billing: Yes Source: Developed by Drs. Dillon Hamilton, Evelyn March, Christian Simon and colleagues, with an educational alicia from [employer]. Thrive Questionnaire Date Thrive assessed: 07/20/24 I am a: Patient What is your living situation today?: I have a steady place to live Within the past 12 months, did the food you bought not last and you didn't have the money to get more?: Never true Within the past 12 months, did you worry whether your food would run out before you got money to buy more?: Never true Do you have trouble paying for medicines?: No Do you have trouble getting transportation to medical appointments?: No Do you have trouble paying your heating and electricity bill?: No Do you have trouble taking care of your child, family member or friend?: No Do you have trouble with day-to-day activities such as bathing, preparing meals, shopping, managing finances, etc.?: No Are you currently unemployed and looking for a job?: No Are you interested in more education?: No Please select the resources that you would like help with: None Currently or been in a relationship where the following occur: No concerns rep orted THRIVE Score: 0 AUDIT C Alcohol Use Questionnaire (AUDIT-C) 1. How often do you have a drink containing alcohol?: Monthly or less 2. How many drinks containing alcohol do you have on a typical day when you are drinking?: 1 or 2 3. How often do you have six or more drinks on one occasion?: Never Total Score: 1 Score Reviewed/Action Taken: Yes NAMITA-7 AMB Questionnaire NAMITA-7 Date NAMITA - 7 assessed: 07/20/24 Feeling nervous, anxious, or on edge: 1 = Several days Not being able to stop or control worryin = Several days Worrying too much about different things: 1 = Several days Trouble relaxin = Several days Being so restless that it is hard to sit still: 0 = Not at all Becoming easily annoyed or irritable: 0 = Not at all Feeling afraid as if something awful might happen: 0 = Not at all Total NAMITA-7 score (0-4 normal; 5-9 mild; 10-14 moderate; 15-21 severe): 4 Source: Developed by Drs. Dillon Hamilton, Evelyn March, Christian Simon and colleagues, with an educational alicia from [employer]. NAMITA-7 Assessment Billing NAMITA-7 Assessment Tool: NAMITA-7 Assessment 45962 (denies any si or hi, has a psychiatrist) Physical exam (Primary Care) Vital Signs: Last Vital Signs Pulse 56 07/20/24 15:17 BP 130/78 07/20/24 15:17 Pulse Ox 96 07/20/24 15:17 Oxygen Delivery Method Room Air 07/20/24 15:17 Oxygen Flow Rate 98.0 07/20/24 15:17 BMI result Body Mass Index 25.6 Tobacco/Smoking Status: Tobacco use Status Tobacco use date assessed 07/20/24 07/20/24 15:24 Patient Tobacco Use Status Current everyday Tobacco 07/20/24 15:24 Tobacco use type Cigarette 07/20/24 15:24 e-Cigarette/Vaping Use Never Used 07/20/24 15:24 PHQ-9: PHQ-9 Score PHQ-9: Total score 13 07/20/24 16:11 Depression Screening Interpretation: Positive (denies any si or hi, pt reports has a psychiatrist) Depression Screening Follow-up: Existing condition and Declines treatment Thrive Assessment: Date of Thrive Assessment Date Thrive assessed 07/20/24 07/20/24 15:24 Currently or been in a relationship where the following occur: No concerns reported Immunizations pneumoc 20-dacia conj-dip cr(PF) 0.5 mL IM syringe Performing Provider: JEANETH Avila [place] [facility] Administered by: Boris Montemayor CMA on 07/20/24 16:10 Dose Route Admin Location Dispensed Lot Number Expiration Date ND Molder Inflated Ball 0.5 mL IM Right Deltoid 0.5 mL [id number] 05/20/25 2155-3627-19 WYETH/PFIZER VIS Given Date VIS Provided VIS Publication Date 07/20/24 Single Vaccine 21 Eligibility Eligibility Date Funding Source Not [facility] Eligible 07/20/24 Private Coding Level of Care Code Est Pt Prev Care 40-64y(19260) Diagnoses Encounter for routine adult physical exam with abnormal findings Z00. Screening PSA (prostate specific antigen) Z12.5 Additional Codes NAMITA-7 Assessment Billing - NAMITA-7 Assessment Tool: NAMITA-7 Assessment 44195 ([id number]) PHQ-9 - 45469 - PHQ-9 Billing: Yes ([id number]) Assessment & Plan Assessment & Plan (1) Encounter for routine adult physical exam with abnormal findings: Code(s): Z00.01 - Encounter for general adult medical examination with abnormal findings Category: Medical (2) Screening PSA (prostate specific antigen): Code(s): Z12.5 - Encounter for screening for malignant neoplasm of prostate Category: Medical Plan . Orders: Orders Comprehensive Moro. Panel Fast Today Z00.01 - Encounter for general adult medical examination with abnormal findings UA CC w/rflx Micro + Cult Today Z00.01 - Encounter for general adult medical examination with abnormal findings Prostate Specific Antigen Scr Today Z12.5 - Encounter for screening for malignant neoplasm of prostate Pneumococcal 20 Immunization Today Z23 - Encounter for immunization Complete Blood Count Auto Diff Today Z00.01 - Encounter for general adult medical examination with abnormal findings TSH reflex Free T4 Today Z00.01 - Encounter for general adult medical examination with abnormal findings Lipid Panel Today Z00.01 - Encounter for general adult medical examination with abnormal findings Medications: New budesonide-formoterol 80-4.5 mcg/actuation (Symbicort) 2 puffs inhalation BID 10.2 grams 2RF
[2024-07-20 15:17] VITALS: BP 130/78; PULSE 56; O2SAT 96; BMI 25.6
--- OUTSIDE RECORDS SUMMARY | 2024-07-20 16:12 | XMS_ITS | Clinical Summary ---
Author Organization [facility] ity Address [address] [place] [address] Care Team Providers Care Splunk Dashboard Developer Name Role Phone Unavailable Primary Care Provider [...]
== END 2024-07-20 16:09 | disposition home or self-care (01) ==
LOC: HO.HMCC 15:06
PROVIDERS: PCP Nurse Practitioner Family; Visit Provider Nurse Practitioner Family
DX: Z00.01 Encounter for general adult medical examination with abnormal findings (principal); Z12.5 Encounter for screening for malignant neoplasm of prostate; Z23 Encounter for immunization

== ENCOUNTER → 2024-07-20 15:05 | Outpatient (BNVA) | payer OTHER, SELFPAY | PROVIDERS: PCP Nurse Practitioner Family; Visit Provider Nurse Practitioner Family | DX: Z00.01 Encounter for general adult medical examination with abnormal findings (principal); J44.9 Chronic obstructive pulmonary disease, unspecified; F17.210 Nicotine dependence, cigarettes, uncomplicated; Z87.442 Personal history of urinary calculi; Z23 Encounter for immunization | CPT/HCPCS: 90471; 90677; 96127 ==

== ENCOUNTER 2024-07-21 09:19 | Outpatient (AMB) | payer OTHER, SELFPAY ==
--- NOTE | 2024-07-21 09:39 | MHC.OFFVIS ---
Vital Signs 07/21/24 09:44 Height 6 ft Weight 189 lb BMI 25.6 BP 119/56 L Blood Pressure Location Lt brachial Position Sitting Pulse 58 Pulse Oximetry (%) 93 Oxygen Delivery Method Room Air Intake Visit Reasons: s/p colo egd Intake Note: Patient follow up for EGD/Colonoscopy results. Patient cc: gassy, constipation on and off, denies any other GI issues. Travograph Operator Required: No Accompanied by: Self / Same As Patient Allergies No Known Allergies [No Known Allergies*] Allergy (Verified 07/21/24 09:38) HPI Comments Details: 62 y.o M with PMH of COPD, HTN, SVT (was prev est by Kenya Brice at [facility]), polysubstance use disorder who is here for blood in stool. Pt reports having hard stools that are like pellets +/- straining. Stool is brown but would see blood on it and on wiping. Also reports R lower right quadrant pain without nausea or weight loss. In fact has been gaining weight. Has been taking nexium and mylanta which seemed to have helped. Constipation is better with milk of mag PRN. Has never had a colo. No fam hx of CRC. Pt himself has smoking hx - roughly 55 PY hx. Remote use of etOH use disorder. Sober for 8 years. Used to drink hard liquor 12-15 times a day. Not aware of any liver issues. Also uses heroin - sniffs. Prev hx of crack/cocaine use around 5 years. In terms of cardiac hx, has hx of SVT, V TAch and PVCs + severe HTN - started on diltiazem, clonidine and amlodipine. BB avoided due to hx of cocaine use in past. Prev echo normal (2020). Was seen by Kevin. 05/28/24: Here for follow up. Last seen in 2023. Lost to follow up since. Arranged colo 04/2024 which the pt called to cancel. Pt reports main issue now is abd discomfort, bloating and increased borborygmi. Has early satiety. Lost almost 18 lbs in 3 months. Still occ sees blood in stool. Stools fluctuate between black and watery to normal. Has been seen by cardiology and cleared for procedure. Recently seen at [facility] for the same sx - CT negative for GI but has adrenal abnl - seeing endocrine. 07/06/24: 1. Normal esophagus 2. Normal stomach (biopsy) 3. Duodenitis (biopsy) 4. Normal colon and terminal ileum mucosa (biopsy) 5. Internal hemorrhoids 6. Diverticulosis Path: A. Duodenum, biopsy: Duodenal mucosa with preserved villi and no specific change. B. Gastric antrum, greater curvature, biopsy: Predominantly gastric antral mucosa with focal minimal chronic inactive inflammation; negative for H. pylori, intestinal metaplasia and dysplasia. C. Gastric antrum, lesser curvature, biopsy: Gastric antral mucosa with focal minimal chronic inactive inflammation; negative for H. pylori, intestinal metaplasia and dysplasia. D. Gastric incisura, biopsy: Gastric body mucosa with focal minimal chronic inactive inflammation; negative for H. pylori, intestinal metaplasia and dysplasia. E. Gastric body, greater curvature, biopsy: Gastric body mucosa with focal minimal chronic inactive inflammation; negative for H. pylori, intestinal metaplasia and dysplasia. F. Gastric body, lesser curvature, biopsy: Gastric body mucosa with focal minimal chronic inactive inflammation; negative for H. pylori, intestinal metaplasia and dysplasia. G. Colon, right, biopsy: Colonic mucosa with no specific change; no evidence of microscopic colitis. H. Colon, left, biopsy: Colonic mucosa with lymphoid aggregates and no specific change; no evidence of microscopic colitis. 07/21/24: Here for follow up. EGD and colo results reviewed. Bx normal. Reports continues to have bloating and constipation. Reports pellet like stools with straining. Weight curve has stabilized but has low energy, east fatigability and early satiety. Following with endocrine for enlarged adrenal gland. Pt also overdue for lung cancer screening. Had lung-RADS 3 nodules needing 6m follow up in Mar 2023 which is overdue. [facility] Medical History SVT (supraventricular tachycardia) Palpitations Adrenal nodule Pulmonary nodules Depression HTN (hypertension) COPD (chronic obstructive pulmonary disease) Atherosclerotic cardiovascular disease Colon cancer screening declined Substance abuse Surgical History Hx of nephrolithotomy with removal of calculi H/O hand surgery History of open reduction and internal fixation (ORIF) procedure Family History Father No problems noted. Family/Other No problems noted. Other Substance use disorder Social History Household Members Other:: brother Housing: House Are you a primary customer care team coach to a significant other at home: No Do you presently have visiting nurse or other home services: No Alcohol intake: former Patient Tobacco Use Status: Current everyday Tobacco user Tobacco use type: Cigarette Cigarette Packs Per Day: 0.5 Cigarettes Per Day: 10.0 Years Smoked: 44 (onset 15) e-Cigarette/Vaping Use: Never Used Second Hand Smoke Exposure: No Substance Use Type: Heroin Current occupational status: employed Current occupation: [employer] Current occupational exposures/hazards: Yes Cognitive needs: No Hearing needs: No Vision needs: No Review of Systems Const All systems reviewed & are unremarkable except as noted in HPI and below Physical Exam Vital Signs: Last Vital Signs Pulse 58 07/21/24 09:44 BP 119/56 L 07/21/24 09:44 Pulse Ox 93 07/21/24 09:44 Oxygen Delivery Method Room Air 07/21/24 09:44 BMI result Body Mass Index 25.6 No apparent distress Nonicteric Abdomen soft, nondistended Alert and oriented x3, normal gait Assessment & Plan Assessment & Plan (1) Unintentional weight loss: Code(s): R63.4 - Abnormal weight loss Category: Medical (2) Early satiety: Code(s): R68.81 - Early satiety Category: Medical (3) Change in bowel habit: Code(s): R19.4 - Change in bowel habit Category: Medical (4) Abdominal pain: Code(s): R10.9 - Unspecified abdominal pain Category: Medical Qualifiers: Abdominal location: lower abdomen, unspecified Qualified Code(s): R10.30 - Lower abdominal pain, unspecified (5) Smoker: Comment: (onset 15yo, 1ppd x 44years, now 1/2ppd, 44pyh) Code(s): F17.200 - Nicotine dependence, unspecified, uncomplicated Category: Social Hx (6) Anemia: Code(s): D64.9 - Anemia, unspecified Category: Medical Plan 1. Abd pain with early satiety EGD/colo negative. Reviewed mild duodenitis does not correlate with his degree of discomfort. Could have some component of IBS-C. Reviewed fiber and laxative use. Has concurrnet anemia, will cehck iron studies, if low, will proceed with small bowel eval. Plan: - CBC, iron profile, B12 and folate - Fiber capsules - pt unable to tolerate psyllium powder - Miralax daily or qother day 2. Fatigue Unclear if related to abd complaints. 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 Plan: - CMP, Vit D - Also advised to follow through endocrine testing 3. Lung nodules Continues to smoke. CXR 11/2023 without any suspicious lesions. Will get CT chest lung cancer screening protocol to follow up on known lung nodules to r/o progression given constitutional sx. Plan: - CT chest without contrast Follow up 3 months Orders: Orders Complete Blood Count no Diff Today R63.4 - Abnormal weight loss, R68.81 - Early satiety CT lung screen follow up Today R63.4 - Abnormal weight loss, R91.8 - Other nonspecific abnormal finding of lung field Comprehensive Met. Panel Today R63.4 - Abnormal weight loss, R68.81 - Early satiety IRON PROFILE Today R63.4 - Abnormal weight loss, R68.81 - Early satiety Vitamin B12 and Folate Today R63.4 - Abnormal weight loss, R68.81 - Early satiety Vitamin D 25-OH Total Today R63.4 - Abnormal weight loss, R68.81 - Early satiety Medications: New polyethylene glycol 3350 (Miralax) 17 grams PO DAILY 238 grams 1RF psyllium husk (Fiber (psyllium husk)) 1.04 grams (2 x 0.52 gram) PO BEDTIME 60 caps 1RF Coding Level of Care Code Est Pt Level 4 (40534) Diagnoses Unintentional weight loss R63.4 Early satiety R68.81 Change in bowel habit R19.4 Lower abdominal pain R10.30 Abdominal location: lower abdomen, unspecified Smoker F17.200 Anemia D64.9
[2024-07-21 09:44] VITALS: BP 119/56; PULSE 58; O2SAT 93; BMI 25.6
--- OUTSIDE RECORDS SUMMARY | 2024-07-21 10:40 | XMS_ITS | Clinical Summary ---
Author Organization [facility] ity Address [address] [place] [address] Care Team Providers Care Electronics Repair Technician Name Role Phone Unavailable Primary Care Provider [...]
== END 2024-07-21 10:40 | disposition home or self-care (01) ==
LOC: HO.HGI 09:20
PROVIDERS: PCP Nurse Practitioner Family; Visit Provider Internal Medicine
DX: R63.4 Abnormal weight loss (principal); R68.81 Early satiety; R19.4 Change in bowel habit; R10.30 Lower abdominal pain, unspecified; F17.200 Nicotine dependence, unspecified, uncomplicated; D64.9 Anemia, unspecified
CPT/HCPCS: 99214

== ENCOUNTER 2024-07-27 06:34 | Outpatient (REF) | payer OTHER, SELFPAY ==
--- NOTE | ~2024-07-27 | CT_ITS ---
CLINICAL HISTORY: R91.8 - Other nonspecific abnormal finding of lung field CT chest without contrast Comparison: CR/SR - XR CHEST 1V - 11/05/23 01:[address]/REG/AR/SR - CT LUNG SCREENING - 03/31/23 09:00 EST Findings: No mediastinal mass or lymphadenopathy. No cardiomegaly. Severe calcified coronary artery disease. Normal size thoracic aorta. Mild calcified atherosclerotic disease. Paraseptal emphysema extends beyond the lung apices and measures up to 1.8 cm. Moderate centrilobular emphysema. Mild bronchial wall thickening with a trace amount of secretions in the airways. Trace biapical scarring. Mild amount of linear scarring in the right lower lobe. There are multiple solid pulmonary nodules. Some nodules are stable, others have resolved and some are new. Pulmonary nodules measure to 6 mm in the left lower lobe, new ( series 4, image 109). Intrapulmonary lymph nodes measure up to 5 mm along the right major fissure, new ( series 4, image 66). No pneumothorax or pleural effusion. No acute osseous or soft tissue abnormality. No acute pathology in the imaged portion of the upper abdomen. 3.7 cm left adrenal adenoma. Impression: New pulmonary nodules measuring up to 6 mm. 3 to six-month follow-up chest CT is recommended. This document has been electronically signed by: Shama Chakraborty MD on 07/27/2024 15:40:14
--- OUTSIDE RECORDS SUMMARY | 2024-07-27 06:37 | XMS_ITS | Clinical Summary ---
Author Organization [facility] ity Address [address] [place] [address] Care Team Providers Care Clothing Designer Name Role Phone Unavailable Primary Care Provider [...]
== END 2024-07-27 06:35 | disposition home or self-care (01) ==
LOC: HO.CT 06:34
PROVIDERS: PCP Nurse Practitioner Family; Visit Provider Internal Medicine
DX: R91.8 Other nonspecific abnormal finding of lung field (principal); R63.4 Abnormal weight loss
CPT/HCPCS: 71250

== ENCOUNTER → 2024-07-27 06:35 | Outpatient (BNV) | payer OTHER, SELFPAY | PROVIDERS: PCP Nurse Practitioner Family; Visit Provider Radiology Diagnostic Radiology | DX: R91.8 Other nonspecific abnormal finding of lung field (principal) | CPT/HCPCS: 71250 ==

== ENCOUNTER 2024-08-18 11:12 | Outpatient (REF) | payer OTHER, SELFPAY ==
--- OUTSIDE RECORDS SUMMARY | 2024-08-18 13:00 | XMS_ITS | Clinical Summary ---
Author Organization [facility] ity Address [address] [place] [address] Care Team Providers Care Freight Broker Name Role Phone Unavailable Primary Care Provider [...]
[2024-08-18 13:27] LABS: Hematocrit 43.7 % (42.0-52.0); Hemoglobin 13.9 g/dl (14.0-18.0); Mean Corpuscular HGB Conc 31.8 g/dl (31.0-36.0); Mean Corpuscular Hemoglobin 28.5 pg (27.0-33.0); Mean Corpuscular Volume 89.5 fL (80.0-98.0); Mean Platelet Volume 10.2 fL (9.4-12.4); Platelet Count 327 X10*3/uL (160-400); Red Blood Count 4.88 X10*6/uL (4.60-5.80); Red Cell Distribution Width 13.3 % (11.0-16.0); White Blood Count 11.7 X10*3/uL (4.8-10.8)
[2024-08-18 13:45] LABS: Alanine Aminotransferase 25 U/L (0-40); Albumin Level 4.5 g/dL (3.5-5.0); Alkaline Phosphatase 86 U/L (39-117); Anion Gap 14 (12-20); Aspartate Amino Transferase 19 U/L (5-37); Bilirubin Total 0.2 mg/dL (0.0-1.0); Blood Urea Nitrogen 16 mg/dL (9-16); Carbon Dioxide 31 mmol/L (22-29); Chloride 104 mmol/L (96-108); Estimated Glomerular Filt Rate > 60; Glucose Random 109 mg/dL (60-115); Iron 42 mcg/dL (45-160); Percent Iron Saturation 14 % (15-50); Sodium 144 mmol/L (135-145); Total Iron Binding Capacity 296 mcg/dL (228-428); Total Protein 7.2 g/dL (6.5-8.0); Unsaturated Iron Binding 254 ug/dL
[2024-08-18 13:59] LABS: Vitamin D 25-OH Total 81.1 ng/mL (>30)
[2024-08-18 14:10] LABS: Folate 10.7 ng/mL (> or = 4.0); Vitamin B12 603 pg/mL (200-900)
== END 2024-08-18 11:13 | disposition home or self-care (01) ==
LOC: HO.HMGCLDS 11:12
PROVIDERS: PCP Nurse Practitioner Family; Visit Provider Internal Medicine
DX: R68.81 Early satiety (principal); R63.4 Abnormal weight loss
CPT/HCPCS: 36415; 80053; 82306; 82607; 82746; 83540; 85027

== ENCOUNTER 2024-08-23 08:19 | Outpatient (REF) | payer OTHER, SELFPAY ==
--- NOTE | ~2024-08-23 | US_ITS ---
CLINICAL HISTORY: R63.4 - Abnormal weight loss --- Additional Notes or Special Instructions: r o chronic mesenteric ischemia US mesenteric arteries with Doppler Comparison: None provided Findings: Peak systolic velocities: Aortic proximal to superior mesenteric artery: 116 cm/sec Aortic distal to superior mesenteric artery: 130 cm/sec Celiac artery inspiration supine: 494 cm/sec Celiac artery exploration supine: 500 cm/sec Celiac artery inspiration erect: 262 cm/sec Celiac artery exploration erect: 340 cm/sec Superior mesenteric artery proximal: 287 cm/sec Superior mesenteric artery midportion: 1 are 22 cm/sec Superior mesenteric artery distal: 1 are 50 cm/sec Inferior mesenteric artery: 63 cm/sec Splenic artery: 82 cm/sec Hepatic artery: 102 cm/sec IMPRESSION: 1. 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 Further assessment with MR angiography or CT angiography recommended. This document has been electronically signed by: Anne Ivy MD on 08/24/2024 15:38:45
--- OUTSIDE RECORDS SUMMARY | 2024-08-23 08:29 | XMS_ITS | Clinical Summary ---
Author Organization [facility] ity Address [address] [place] [address] Care Team Providers Care Electric Stove Installer Name Role Phone Unavailable Primary Care Provider [...]
== END 2024-08-23 08:20 | disposition home or self-care (01) ==
LOC: HO.US 08:19
PROVIDERS: PCP Nurse Practitioner Family; Visit Provider Internal Medicine
DX: R10.30 Lower abdominal pain, unspecified (principal); R63.4 Abnormal weight loss; R94.8 Abnormal results of function studies of other organs and systems
CPT/HCPCS: 93976

== ENCOUNTER → 2024-08-23 08:22 | Outpatient (BNV) | payer OTHER, SELFPAY | PROVIDERS: PCP Nurse Practitioner Family; Visit Provider Radiology Diagnostic Radiology | DX: I77.4 Celiac artery compression syndrome (principal) | CPT/HCPCS: 93976 ==

== ENCOUNTER 2024-09-20 13:03 | Outpatient (REF) | payer OTHER, SELFPAY ==
--- NOTE | ~2024-09-20 | CT_ITS ---
EXAMINATION: CT ABDOMEN PELVIS ANGIOGRAPHY WITH IV CONTRAST HISTORY: R10.30 - Lower abdominal pain, unspecified COMPARISON: Comparison is made with the prior examination dated 11/03/2023. Correlation is also made with a Doppler evaluation of the mesenteric vessels dated 08/23/2024. TECHNIQUE: CT angiography of the abdomen and pelvis was performed following administration of 80 mL Omnipaque 350 using standard departmental protocol. The IV contrast bolus was timed to maximally opacify the arterial system. Coronal and sagittal reformatted images were generated and reviewed. Oral contrast material was not administered at the request of the referring physician. This CT exam was performed with one or more of the following dose reduction techniques: automated exposure control, adjustment of the mA and/or kV according to patient size, use of iterative reconstruction technique. DLP: 266 mGy-cm FINDINGS: LOWER CHEST: The visualized lung bases are clear. There is no pleural effusion. CARDIOVASCULATURE: The heart is normal in size. There is no pericardial effusion. LIVER: The liver is normal in size and contour. No liver mass is identified on this arterial phase examination. GALLBLADDER / BILE DUCTS: The gallbladder is unremarkable. There is no intra or extrahepatic biliary ductal dilatation. SPLEEN: The spleen is normal in size. No focal splenic lesion is identified. PANCREAS: The pancreas is unremarkable in appearance. ADRENAL GLANDS: There are multiple bilateral renal nodules, the largest of which is on the left measuring 3.1 x 1.6 cm. KIDNEYS/RETROPERITONEUM: No renal calculi are identified. There is no hydronephrosis. No renal masses are identified. LYMPH NODES: No abdominal or pelvic lymphadenopathy. VASCULATURE: There is mild atherosclerotic calcification of the abdominal aorta without evidence of an aneurysm. The celiac axis, superior mesenteric artery, and inferior mesenteric artery are widely patent. The bilateral renal arteries are patent. The bilateral common and external iliac arteries are patent. MESENTERY/PERITONEUM: No free fluid. No masses. There is no free intraperitoneal gas. STOMACH: The stomach is unremarkable. SMALL BOWEL: The small bowel is normal in caliber. COLON: There is a large amount of stool throughout the colon. APPENDIX: Normal. URINARY BLADDER/PELVIC ORGANS: The urinary bladder is collapsed, limiting evaluation. There are calcifications of the prostate. BONES / SOFT TISSUES: The patient is status post internal fixation of the right hip with a compression screw. There is degenerative disc disease of the spine and mild dextroscoliosis. CT/CT angio abdomen pelvis IMPRESSION: 1. The celiac axis and superior mesenteric artery are widely patent. 2. Large amount of stool throughout the colon. 3. Possible bilateral adrenal nodules which may represent adenomas. Electronically signed by: Dillon Gregorio MD 09/20/2024 02:09 PM EDT
[2024-09-20] MEDS: iohexoL 350 MG/ML 100 ML INFUS..BTL 80 ML IV (13:41)
--- OUTSIDE RECORDS SUMMARY | 2024-09-20 13:50 | XMS_ITS | Clinical Summary ---
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
[2024-09-20 16:17] LABS: Creatinine POC 0.7 mg/dL (0.5-1.4); GFR POC > 60
== END 2024-09-20 13:04 | disposition home or self-care (01) ==
LOC: HO.CT 13:03
PROVIDERS: PCP Nurse Practitioner Family; Visit Provider Internal Medicine Gastroenterology
DX: R10.30 Lower abdominal pain, unspecified (principal)
CPT/HCPCS: 74174; 82565; Q9967

== ENCOUNTER → 2024-09-20 13:09 | Outpatient (BNV) | payer OTHER, SELFPAY | PROVIDERS: PCP Nurse Practitioner Family; Visit Provider Radiology Diagnostic Radiology | DX: R10.30 Lower abdominal pain, unspecified (principal) | CPT/HCPCS: 74174 ==

== ENCOUNTER 2024-10-03 10:25 | Outpatient (REF) | payer OTHER, SELFPAY ==
[2024-10-03 10:34] LABS: Total Volume 24 Hour Urine 1725 mL
[2024-10-03 10:56] LABS: Creatinine, mg/dL 84.48
[2024-10-08 19:59] LABS: Total Volume, 24 Hr Urine 1725 mL
== END 2024-10-03 10:26 | disposition home or self-care (01) ==
LOC: HO.LNP 10:25
PROVIDERS: Visit Provider Student in an Organized Health Care Education/Training Program
DX: E27.8 Other specified disorders of adrenal gland (principal)
CPT/HCPCS: 82530; 82570

== ENCOUNTER 2024-10-13 12:42 | Outpatient (AMB) | payer OTHER, SELFPAY ==
--- NOTE | 2024-10-13 13:12 | MHC.OFFVIS ---
Vital Signs 10/13/24 13:13 Height 6 ft Weight 180 lb 12.465 oz BMI 24.5 BP 153/69 H Blood Pressure Location Lt brachial Position Sitting Pulse 57 Intake Visit Reasons: f/u 3 month Intake Note: CC: states that he has been missing work because of severe constipation. He states that metamucil gummies are regulating him. He states there is a white mucus around his stools and he states that the other day he had a chunk of mucus that came out. Since he started pentoxifylline - the bleeding in his stools have gone away but when he wipes sometimes there is mucus. Solution Spec Required: No Allergies No Known Allergies (No Known Allergies*) Allergy (Verified 10/13/24 13:13) HPI Comments Details: 62 y.o M with PMH of COPD, HTN, SVT (was prev est by [place] Br[place] [facility] polysubstance use disorder who is here for blood in stool. Pt reports having hard stools that are like pellets +/- straining. Stool is brown but would see blood on it and on wiping. Also reports R lower right quadrant pain without nausea or weight loss. In fact has been gaining weight. Has been taking nexium and mylanta which seemed to have helped. Constipation is better with milk of mag PRN. Has never had a colo. No fam hx of CRC. Pt himself has smoking hx - roughly 55 PY hx. Remote use of etOH use disorder. Sober for 8 years. Used to drink hard liquor 12-15 times a day. Not aware of any liver issues. Also uses heroin - sniffs. Prev hx of crack/cocaine use around 5 years. In terms of cardiac hx, has hx of SVT, V TAch and PVCs + severe HTN - started on diltiazem, clonidine and amlodipine. BB avoided due to hx of cocaine use in past. Prev echo normal (2020). Was seen by Kevin. 05/28/24: Here for follow up. Last seen in 2023. Lost to follow up since. Arranged colo 04/2024 which the pt called to cancel. Pt reports main issue now is abd discomfort, bloating and increased borborygmi. Has early satiety. Lost almost 18 lbs in 3 months. Still occ sees blood in stool. Stools fluctuate between black and watery to normal. Has been seen by cardiology and cleared for procedure. Recently seen at [facility] for the same sx - CT negative for GI but has adrenal abnl - seeing endocrine. 07/06/24: 1. Normal esophagus 2. Normal stomach (biopsy) 3. Duodenitis (biopsy) 4. Normal colon and terminal ileum mucosa (biopsy) 5. Internal hemorrhoids 6. Diverticulosis Path: A. Duodenum, biopsy: Duodenal mucosa with preserved villi and no specific change. B. Gastric antrum, greater curvature, biopsy: Predominantly gastric antral mucosa with focal minimal chronic inactive inflammation; negative for H. pylori, intestinal metaplasia and dysplasia. C. Gastric antrum, lesser curvature, biopsy: Gastric antral mucosa with focal minimal chronic inactive inflammation; negative for H. pylori, intestinal metaplasia and dysplasia. D. Gastric incisura, biopsy: Gastric body mucosa with focal minimal chronic inactive inflammation; negative for H. pylori, intestinal metaplasia and dysplasia. E. Gastric body, greater curvature, biopsy: Gastric body mucosa with focal minimal chronic inactive inflammation; negative for H. pylori, intestinal metaplasia and dysplasia. F. Gastric body, lesser curvature, biopsy: Gastric body mucosa with focal minimal chronic inactive inflammation; negative for H. pylori, intestinal metaplasia and dysplasia. G. Colon, right, biopsy: Colonic mucosa with no specific change; no evidence of microscopic colitis. H. Colon, left, biopsy: Colonic mucosa with lymphoid aggregates and no specific change; no evidence of microscopic colitis. 07/21/24: Here for follow up. EGD and colo results reviewed. Bx normal. Reports continues to have bloating and constipation. Reports pellet like stools with straining. Weight curve has stabilized but has low energy, east fatigability and early satiety. Following with endocrine for enlarged adrenal gland. Pt also overdue for lung cancer screening. Had lung-RADS 3 nodules needing 6m follow up in Mar 2023 which is overdue. 09/20/24: CTA LIVER: The liver is normal in size and contour. No liver mass is identified on this arterial phase examination. GALLBLADDER / BILE DUCTS: The gallbladder is unremarkable. There is no intra or extrahepatic biliary ductal dilatation. SPLEEN: The spleen is normal in size. No focal splenic lesion is identified. PANCREAS: The pancreas is unremarkable in appearance. ADRENAL GLANDS: There are multiple bilateral renal nodules, the largest of which is on the left measuring 3.1 x 1.6 cm. KIDNEYS/RETROPERITONEUM: No renal calculi are identified. There is no hydronephrosis. No renal masses are identified. LYMPH NODES: No abdominal or pelvic lymphadenopathy. VASCULATURE: There is mild atherosclerotic calcification of the abdominal aorta without evidence of an aneurysm. The celiac axis, superior mesenteric artery, and inferior mesenteric artery are widely patent. The bilateral renal arteries are patent. The bilateral common and external iliac arteries are patent. MESENTERY/PERITONEUM: No free fluid. No masses. There is no free intraperitoneal gas. 10/13/24: Here for follow-up. Reports improvement in symptoms since last week. Has been able to go to work without any further time off. Reports more recently, has been more constipated despite taking fiber gummies. Just picked up [id number] MiraLax from pharmacy today. Has not tried it yet. Results of CTA reviewed with the patient. Essentially, low likelihood of chronic mesenteric ischemia based on patent vasculature. He is aware that he should be following up with Endocrinology for known adrenal nodules. [facility] Medical History Nicotine dependence, cigarettes, uncomplicated SVT (supraventricular tachycardia) Palpitations Adrenal nodule Depression HTN (hypertension) COPD (chronic obstructive pulmonary disease) Atherosclerotic cardiovascular disease Substance abuse Surgical History History of esophagogastroduodenoscopy (EGD) History of colonoscopy Hx of nephrolithotomy with removal of calculi H/O hand surgery History of open reduction and internal fixation (ORIF) procedure Family History Father No problems noted. Family/Other No problems noted. Other Substance use disorder Social History Household Members Other:: brother Housing: House Are you a primary pharmacy care coordinator to a significant other at home: No Do you presently have visiting nurse or other home services: No Alcohol intake: former Patient Tobacco Use Status: Current everyday Tobacco user Tobacco use type: Cigarette Cigarette Packs Per Day: 0.5 Cigarettes Per Day: 10.0 Years Smoked: 44 (onset 15) e-Cigarette/Vaping Use: Never Used Second Hand Smoke Exposure: No Substance Use Type: Heroin Current occupational status: employed Current occupation: [employer] Current occupational exposures/hazards: Yes Cognitive needs: No Hearing needs: No Vision needs: No Review of Systems Const All systems reviewed & are unremarkable except as noted in HPI and below Physical Exam Exam Exam: No apparent distress Nonicteric Abdomen soft, nondistended Alert and oriented x3, normal gait Vital Signs: Last Vital Signs Pulse 57 10/13/24 13:13 BP 153/69 H 10/13/24 13:13 BMI result Body Mass Index 24.5 Assessment & Plan Assessment & Plan (1) Unintentional weight loss: Code(s): R63.4 - Abnormal weight loss Category: Medical (2) Early satiety: Code(s): R68.81 - Early satiety Category: Medical (3) Change in bowel habit: Code(s): R19.4 - Change in bowel habit Category: Medical (4) Abdominal pain: Code(s): R10.9 - Unspecified abdominal pain Category: Medical Qualifiers: Abdominal location: lower abdomen, unspecified Qualified Code(s): R10.30 - Lower abdominal pain, unspecified (5) Smoker: Comment: (onset 15yo, 1ppd x 48years, now 1/2ppd, 89yh) Code(s): F17.200 - Nicotine dependence, unspecified, uncomplicated Category: Social Hx (6) Anemia: Code(s): D64.9 - Anemia, unspecified Category: Medical Plan 1. Abd pain with early satiety This has improved. Managing constipation with fiber, also planning to add MiraLax which is reasonable. Patient advised that if symptoms minimally improved, can add a secretagogue for global symptom relief. Tramadol discontinued. Similarly, patient is aware to not take loperamide since already constipated. He brings [employer] paperwork today, which will be filled out. 2. Lung nodules Continues to smoke. CT chest in July showed new pulmonary nodules in left lung with intrapulmonary lymphadenopathy. He is set up with lung cancer screening program and getting other CT scan next month. Follow-up 3 months Medications: Discontinued tramadol Discontinued Reason: Doctor's Order 50 mg PO BID 14 days 28 tabs 0RF loperamide Discontinued Reason: Doctor's Order 2 mg PO BID PRN 30 caps 0RF loose stool Coding Level of Care Code Est Pt Level 3 (83082) Diagnoses Unintentional weight loss R63.4 Early satiety R68.81 Change in bowel habit R19.4 Lower abdominal pain R10.30 Abdominal location: lower abdomen, unspecified Smoker F17.200 Anemia D64.9
[2024-10-13 13:13] VITALS: BP 153/69; PULSE 57; BMI 24.5
--- OUTSIDE RECORDS SUMMARY | 2024-10-13 13:14 | XMS_ITS | Clinical Summary ---
Author Organization [facility] ity Address [address] [place] [address] Care Team Providers Care Social Media Campaign Manager Name Role Phone Unavailable Primary Care Provider [...]
== END 2024-10-13 13:35 | disposition home or self-care (01) ==
LOC: HO.HGI 12:43
PROVIDERS: PCP Nurse Practitioner Family; Visit Provider Internal Medicine
DX: R63.4 Abnormal weight loss (principal); R68.81 Early satiety; R19.4 Change in bowel habit; R10.30 Lower abdominal pain, unspecified; F17.200 Nicotine dependence, unspecified, uncomplicated; D64.9 Anemia, unspecified
CPT/HCPCS: 99213

== ENCOUNTER 2024-10-29 08:52 | Outpatient (AMB) | payer OTHER, SELFPAY ==
[2024-10-29 09:11] VITALS: BP 144/88; PULSE 69; O2SAT 98; BMI 24.4
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
--- OUTSIDE RECORDS SUMMARY | 2024-10-29 09:44 | XMS_ITS | Clinical Summary ---
Author Organization [facility] ity Address [address] [place] [address] Care Team Providers Care Sheriff Sergeant Name Role Phone Unavailable Primary Care Provider [...]
== END 2024-10-29 09:28 | disposition home or self-care (01) ==
LOC: HO.ENCR 08:53
PROVIDERS: PCP Nurse Practitioner Family; Visit Provider Student in an Organized Health Care Education/Training Program
DX: E27.8 Other specified disorders of adrenal gland (principal)
CPT/HCPCS: 99213

== ENCOUNTER 2024-11-09 06:55 | Outpatient (REF) | payer OTHER, SELFPAY ==
--- NOTE | ~2024-11-09 | CT_ITS ---
EXAMINATION: CT LUNG SCREENING FOLLOW UP WITHOUT IV CONTRAST HISTORY: R91.8 - Other nonspecific abnormal finding of lung field TECHNIQUE: Low dose axial images were obtained from the sternal notch to upper abdomen without IV contrast per standard departmental protocol. Sagittal and coronal reformatted images were also obtained and reviewed. One or more of the following techniques was used for dose reduction: Automated exposure control, adjustment of the mA and/or kV according to patient size, use of iterative reconstruction technique. DLP: 54 mGy-cm COMPARISON: Comparison is made with the prior examination dated 07/27/2024. FINDINGS: Lung nodules: Again seen is a 3 mm nodule at the right lung apex (series 4, image 20). There is a new 3 mm nodule in the right lower lobe (series 4, image 51). Again seen is a 2 mm nodule in the right lower lobe (series 4, image 92). The previously seen left lower lobe nodule has resolved. Emphysema: mild Coronary Calcification: moderate Aortic Arch Calcification: mild Potentially Significant Incidentals : none Additional Chest Findings: There is no pleural or pericardial effusion. No mediastinal or axillary lymphadenopathy is identified. Visualized upper abdomen: The visualized portions of the liver, spleen, and right adrenal gland have an unremarkable unenhanced appearance. There is a 1.3 cm left adrenal nodule which measures -10 HU in density, consistent with an adenoma. CT/CT lung screen follow up IMPRESSION: No suspicious pulmonary nodules are identified. LUNG-RADS ASSESSMENT: Lung-RADS 2: Benign MANAGEMENT: Continue annual screening with LDCT in 12 months Category S: N/A Electronically signed by: Dillon Gregorio MD 11/09/2024 07:53 AM EDT
--- OUTSIDE RECORDS SUMMARY | 2024-11-09 06:58 | XMS_ITS | Clinical Summary ---
Author Organization [facility] ity Address [address] [place] [address] Care Team Providers Care Price Changer Name Role Phone Unavailable Primary Care Provider [...]
== END 2024-11-09 06:56 | disposition home or self-care (01) ==
LOC: HO.CT 06:55
PROVIDERS: PCP Nurse Practitioner Family; Visit Provider Physician Assistant Medical
DX: R91.8 Other nonspecific abnormal finding of lung field (principal); F17.210 Nicotine dependence, cigarettes, uncomplicated
CPT/HCPCS: 71250

== ENCOUNTER → 2024-11-09 06:57 | Outpatient (BNV) | payer OTHER, SELFPAY | PROVIDERS: PCP Nurse Practitioner Family; Visit Provider Radiology Diagnostic Radiology | DX: R91.8 Other nonspecific abnormal finding of lung field (principal) | CPT/HCPCS: 71250 ==

== ENCOUNTER 2024-11-18 08:13 | Emergency (ER) | payer OTHER, SELFPAY ==
--- NOTE | 2024-11-18 08:28 | ECG_ITS ---
Test Reason : ABD PAIN Blood Pressure : */* mmHG Vent. Rate : 52 BPM Atrial Rate : 52 BPM P-R Int : 146 ms QRS Dur : 104 ms QT Int : 470 ms P-R-T Axes : -28 61 65 degrees QTcB Int : 437 ms Sinus bradycardia Otherwise normal ECG When compared with ECG of 05-Nov-2023 01:24, Premature atrial complexes are no longer Present Vent. rate has decreased by 30 bpm Referred By: Carmen Mixon Electronically Signed By: FAUSTO MEJÍA
[2024-11-18 08:31] VITALS: BP 146/70; PULSE 56; RESP 20; TEMP 36.4; O2SAT 99; BMI 24.1
--- NOTE | 2024-11-18 08:38 | ED_ITS ---
HPI - Abdominal Pain General Chief Complaint: Abdominal Pain Stated Complaint: abd pain diff breathing Time Seen by Provider: 11/18/24 08:20 Source: patient and old records reviewed Mode of arrival: ambulatory Limitations: no limitations History of Present Illness ED Provider: JULIO MEDINA narrative: 64 yo male with PMH of COPD, HTN, SVT, chronic abdominal pain with negative colonoscopy/EGD, normal CTA of abdomen/pelvis in August [address] Eddy for this and has been worked up without known cause of his abdominal pain he presents today with c/o return of abdominal pain in lower abdomen. He has passed gas and had BM yesterday. He notes he has poor appetite but no vomiting, no fevers. He does not report GI bleed. He states this is painful and started after returning home from work on Friday. He took his methadone dose this AM. MD elicited complaint: abdominal pain Pertinent past history: other (chronic abdominal pain) Onset (ago): month(s) Location: suprapubic Severity: severe Radiation: none Migration to: no migration Exacerbating factors: eating and movement Relieving factors: nothing Context: history of similar episodes Associated symptoms: nausea Treatments prior to arrival: prescription analgesics Related Data Home Medications ?Medication ?Instructions ?Recorded ?Confirmed sertraline 50 mg tablet 50 mg PO DAILY 05/26/2407/02 methadone 60 mg PO DAILY 05/28/2407/02 pentoxifylline 400 mg 400 mg PO TID 10/13/24 tablet,extended release Previous Rx's ?Medication ?Instructions ?Recorded rosuvastatin 10 mg tablet 10 mg PO DAILY #90 tabs 04/04 06/25 albuterol sulfate 90 mcg/actuation 2 puff inhalation Q 6H shortness of 06/14/24 aerosol inhaler (Ventolin HFA) breath or wheezing #8.5 grams hydrochlorothiazide 25 mg tablet 25 mg PO DAILY #90 ta bs 06/30/24 diltiazem HCl 60 mg tablet 60 mg PO BID 90 days #180 t abs 07/11/24 budesonide-formoterol HFA 80 2 puff inhalation BID #10 .2 grams 07/20/24 mcg-4.5 mcg/actuation aerosol inhaler (Symbicort) polyethylene glycol 3350 17 17 g PO DAILY #238 grams 0 07/21/24 gram/dose oral powder (Miralax) psyllium husk 0.52 gram capsule 1.04 g (2 x 0.52 gram) PO BEDTIME 07/21/24 (Fiber (psyllium husk)) #60 caps clonidine HCl 0.2 mg tablet 0.2 mg PO TID #270 tabs pantoprazole 20 mg tablet,delayed 20 mg PO DAILY 90 da ys #90 tabs 09/08/24 release Allergies Allergy/AdvReac Type Severity Reaction Status Date / Time No Known Allergies (No Known Allergy Verified 11/18/24 08:33 Allergies*) Review of Systems Review of Systems Constitutional : No Weight loss, No Fever, No Chills ENT/Mouth : No sore throat, No Rhinorrhea Eyes: No Swelling, No Redness Cardiovascular : No Chest Pain, No SOB Respiratory : No Cough, No Sputum, No Wheezing Gastrointestinal : Positive Nausea, no Vomiting, no Diarrhea, positive abdominal Pain, No Hematochezia, No Melena Genitourinary : No Dysuria, No Urinary Frequency, No Hematuria, No Urgency Musculoskeletal : No joint pain, No Myalgias, No Joint Swelling Skin : No Skin Lesions, No rash Neuro : No Weakness, No Numbness, No Dizziness, No Headache All other systems reviewed and are negative. [facility] Past Medical History Attestation statement: The following information was validated with the patient. Source: old records reviewed Medical History Nicotine dependence, cigarettes, uncomplicated SVT (supraventricular tachycardia) Palpitations Adrenal nodule Depression HTN (hypertension) COPD (chronic obstructive pulmonary disease) Atherosclerotic cardiovascular disease Substance abuse Surgical History History of esophagogastroduodenoscopy (EGD) History of colonoscopy Hx of nephrolithotomy with removal of calculi H/O hand surgery History of open reduction and internal fixation (ORIF) procedure Family History Family History Father No problems noted. Family/Other No problems noted. Other Substance use disorder Social History Social History Household Members Other:: brother Housing: House Are you a primary rn acute care to a significant other at home: No Do you presently have visiting nurse or other home services: No Alcohol intake: former Patient Tobacco Use Status: Current everyday Tobacco user Tobacco use type: Cigarette Cigarette Packs Per Day: 0.5 Cigarettes Per Day: 10.0 Years Smoked: 44 (onset 15) Smoked in Last 30 Days: Yes e-Cigarette/Vaping Use: Never Used Second Hand Smoke Exposure: No Use of substances other than those prescribed or required for medical reasons: No Substance Use Type: Heroin Advance Directives: No Advance Directives Information Provided: Yes Do you have a plan to hurt others: No Plan Current occupational status: employed Current occupation: [employer] Current occupational exposures/hazards: Yes Cognitive needs: No Hearing needs: No Vision needs: No Physical Exam ED Vital Signs: Vital Signs - 24 hr 11/18/24 08:31 11/18/24 09:21 11/18/24 10:18 Temperature 97.5 F 98.2 F Pulse Rate 56 45 L 44 L Respiratory Rate 20 16 20 Blood Pressure 146/70 H 134/64 138/60 Pulse Oximetry 99 99 96 Oxygen Delivery Method Room Air Room Air Room Air BMI result Body Mass Index 24.1 Appearance: Alert. Oriented X3. in pain, anxious mild acute distress. Eyes: Pupils equal, round and reactive to light. ENT: Pharynx normal. Neck: Normal inspection. Neck supple. CVS: Normal heart rate and rhythm. Pulses normal. Respiratory: No respiratory distress. Breath sounds normal. Abdomen: Soft and ttp in lower abdominal pain no rebound or guarding Skin: Skin warm and dry. Normal skin color. Extremities: No lower extremity edema. Neuro: Oriented X 3. No motor deficit. No sensory deficit. Medical Decision Making Medical Decision Making MDM Narrative: 64 yo male with PMH of COPD, HTN, SVT, chronic abdominal pain with negative colonoscopy/EGD, normal CTA of abdomen/pelvis in August 2024 here with c/o return of abdominal pain. In the last few months he has had 5 CT scans that do not show any pathology, he has a GI doctor. He denies fevers, urinary symptoms, obstructive pathology. At this time will obtain labs, UA, start on pain control and if any lab derangement consider CT scan but I suspect this is acute on chronic abd pain. Differential Diagnosis Differential Diagnoses: The differential diagnosis associated with the presentation includes chronic abdominal pain, constipation Admission/Observation Consideration of admission/observation: Escalation of care including admission/observation considered feels better, labs not deranged has chronic leukocytosis will DC with GI follow up Lab Data MDM Lab Attestation statement: I reviewed the patient's lab results. mild wbc count this is chronic but normal otherwise 11/18/24 08:46 11/18/24 08:46 Labs: Lab Results 11/18/24 Range/Units 08:46 WBC 11.9 H (4.8-10.8) X10*3/uL RBC 4.82 (4.60-5.80) X10*6/uL Hgb 13.8 L (14.0-18.0) g/dl Hct 40.8 L (42.0-52.0) % MCV 84.6 (80.0-98.0) fL MCH 28.6 (27.0-33.0) pg MCHC 33.8 (31.0-36.0) g/dl RDW 12.8 (11.0-16.0) % Plt Count 304 (160-400) X10*3/uL MPV 9.4 (9.4-12.4) fL Immature Gran % (Auto) 0.4 (0.0-0.4) % Neut % (Auto) 63.7 (45-73) % Lymph % (Auto) 26.2 (20-40) % [place] % (Auto) 6.2 (2-11) % Eos % (Auto) 2.4 (0-4) % Baso % (Auto) 1.1 (0-2) % Lymph # (Auto) 3.1 (1.2-4.9) X10*3/uL [place] # (Auto) 0.7 (0.1-1.2) X10*3/uL Eos # (Auto) 0.3 (0.0-0.4) X10*3/uL Baso # (Auto) 0.1 (0.0-0.2) X10*3/uL Abs Immat Gran (auto) 0.05 H (0.00-0.03) X10*3/uL Absolute Neuts (auto) 7.5 (2.0-8.3) x10*3/uL Absolute Nucleated RBC 0.000 (0.0-0.012) X10*3/uL Nucleated RBC % (auto) 0.0 (0.0-0.2) /100WBC ESR 12 (0-15) MM/HR Sodium 142 (135-145) mmol/L Potassium 4.5 (3.3-5.1) mmol/L Chloride 106 (96-108) mmol/L Carbon Dioxide 29 (22-29) mmol/L Anion Gap 12 (12-20) BUN 13 (9-16) mg/dL Creatinine 0.90 (0.5-1.4) mg/dL Estim Creat Clear Calc 93.4 Estimated GFR > 60 Random Glucose 97 (60-115) mg/dL Calcium 9.4 (8.4-10.2) mg/dL Magnesium 2.4 (1.6-2.6) mg/dL Total Bilirubin 0.3 (0.0-1.0) mg/dL Direct Bilirubin 0.1 (0.0-0.5) mg/dL AST 30 (5-37) U/L ALT 27 (0-40) U/L Alkaline Phosphatase 77 (39-117) U/L Troponin I High Sens 2.8 D (<3.5-35.0) ng/L C-Reactive Protein < 0.10 (< or = 0.50) mg/dL Total Protein 7.3 (6.5-8.0) g/dL Albumin 4.3 (3.5-5.0) g/dL Lipase 14 (8-78) U/L Ethyl Alcohol < 10 mg/dL Independent Interpretation I performed an independent interpretation of an: EKG Interpretation: Rate: 52 Rhythm: sinus bradycardia Tyler: normal Normal P waves. Normal LETITIA. Normal QRS complex. ST T wave : flat t waves aVL, no OCTAVIA, normal qTC: 437 prior studies: normal The study has been interpreted contemporaneously by me. . Independent Historian Clinical information obtained from an independent historian. History obtained from or confirmed by: Friend External Record Review External record reviewed: Inpatient record, Office record, Outpatient record, Prior outpatient labs and Prior outpatient radiology Prescription Management I considered prescription management with: Other Medications Administered Discontinued Medications Generic Name Dose Route Start Last Admin Trade Name Freq PRN Reason Stop Dose Admin Diazepam 5 mg 11/18/24 08:42 11/18/24 08:51 Diazepam 10 Mg/2 Ml Cartridge IVPUSH 11/18/24 08:43 5 mg STAT STA Administration Ketorolac Tromethamine 15 mg 11/18/24 08:42 11/18/24 08:51 Ketorolac Tromethamine 15 Mg/Ml Vial IVPUSH 11/18/24 08:43 15 mg ONCE ONE Administration Discharge Plan Discharge Clinical Impression: Acute exacerbation of chronic abdominal pain Patient Disposition: Home, Self-Care Instructions: Abdominal Pain (ED) Additional Instructions: your labs were reassuring today continue your home medications follow up with your GI doctor return for vomiting, fevers, unable to have a bowel movement or any other concerns Prescriptions: No Action rosuvastatin 10 mg tablet 10 mg PO DAILY Qty: 90 3RF albuterol sulfate [Ventolin HFA] 90 mcg/actuation HFA aerosol inhaler 2 puff inhalation Q6H Qty: 8.5 3RF hydrochlorothiazide 25 mg tablet 25 mg PO DAILY Qty: 90 1RF diltiazem HCl 60 mg tablet 60 mg PO BID 90 Days Qty: 180 1RF clonidine HCl 0.2 mg tablet 0.2 mg PO TID Qty: 270 1RF pantoprazole 20 mg tablet,delayed release (DR/EC) 20 mg PO DAILY 90 Days Qty: 90 1RF methadone 50 mg 60 mg PO DAILY budesonide-formoterol [Symbicort] 80-4.5 mcg/actuation HFA aerosol inhaler 2 puff inhalation BID Qty: 10.2 2RF sertraline 50 mg tablet 50 mg PO DAILY polyethylene glycol 3350 [Miralax] 17 gram/dose powder 17 g PO DAILY Qty: 238 1RF psyllium husk [Fiber (psyllium husk)] 0.52 gram capsule 1.04 g PO BEDTIME Qty: 60 1RF pentoxifylline 400 mg tablet extended release 400 mg PO TID Rx Instructions: must administer with a meal/food Print Language: [place] Islander
[2024-11-18 08:51] LABS: MANUAL DIFF FLAG NO
[2024-11-18] MEDS: diazePAM 10 MG/2 ML CARTRIDGE 5 MG IVPUSH (08:51)
--- NOTE | 2024-11-18 08:55 | PC.NURSE ---
patient a&ox3, iv inserted, labs drawn, ekg performed, monitoring manager applied, pt c/o mid abd pain, pt medicated per order, call praker within reach, plan of care ongoing
[2024-11-18 08:56] LABS: Hematocrit 40.8 % (42.0-52.0); Hemoglobin 13.8 g/dl (14.0-18.0); Imm Gran Abs Auto 0.05 X10*3/uL (0.00-0.03); Imm Gran Pct Auto 0.4 % (0.0-0.4); Lymphocytes Absolute Auto 3.1 X10*3/uL (1.2-4.9); Mean Corpuscular HGB Conc 33.8 g/dl (31.0-36.0); Mean Corpuscular Hemoglobin 28.6 pg (27.0-33.0); Mean Corpuscular Volume 84.6 fL (80.0-98.0); NRBC Abs Auto 0.000 X10*3/uL (0.0-0.012); NRBC Pct Auto 0.0 /100WBC (0.0-0.2); Platelet Count 304 X10*3/uL (160-400); Red Blood Count 4.82 X10*6/uL (4.60-5.80); White Blood Count 11.9 X10*3/uL (4.8-10.8)
[2024-11-18 09:21] VITALS: BP 134/64; PULSE 45; RESP 16; O2SAT 99
[2024-11-18 09:26] LABS: Alanine Aminotransferase 27 U/L (0-40); Albumin Level 4.3 g/dL (3.5-5.0); Alkaline Phosphatase 77 U/L (39-117); Anion Gap 12 (12-20); Aspartate Amino Transferase 30 U/L (5-37); Blood Urea Nitrogen 13 mg/dL (9-16); Calcium 9.4 mg/dL (8.4-10.2); Carbon Dioxide 29 mmol/L (22-29); Chloride 106 mmol/L (96-108); Creatinine Clr Calc Pharmacy 93.4; Estimated Glomerular Filt Rate > 60; Lipase 14 U/L (8-78); Magnesium 2.4 mg/dL (1.6-2.6); Potassium 4.5 mmol/L (3.3-5.1); Sodium 142 mmol/L (135-145); Total Protein 7.3 g/dL (6.5-8.0)
[2024-11-18 09:31] LABS: Troponin-I High Sensitivity 2.8 ng/L (<3.5-35.0)
--- NOTE | 2024-11-18 09:52 | PC.NURSE ---
pt currently sleeping, cardiac rehabilitation specialist sinus breanna, vitals stable, plan of care ongoing
[2024-11-18 10:18] VITALS: BP 138/60; PULSE 44; RESP 20; TEMP 36.8; O2SAT 96
--- OUTSIDE RECORDS SUMMARY | 2024-11-18 10:48 | XMS_ITS | Clinical Summary ---
Author Organization [facility] ity Address [address] [place] [address] Care Team Providers Care Job Placement Specialist Name Role Phone Unavailable Primary Care Provider [...] 2012 Zoster Vaccines (1 of 2) 2012 Depression Screening 03/03/2024 COVID-19 Vaccine (1 - 2023-2 5 season) 2024 Influenza Vaccine (#1) 2024 RSV Immunization Adult [...]
[2024-11-18 11:13] VITALS: BP 148/81; PULSE 45; RESP 18; TEMP 36.7; O2SAT 98
== END 2024-11-18 11:15 | disposition home or self-care (01) ==
PROVIDERS: Emergency Provider Emergency Medicine; PCP Nurse Practitioner Family
DX: R10.2 Pelvic and perineal pain (principal); R06.02 Shortness of breath; R00.1 Bradycardia, unspecified; R11.0 Nausea; I10 Essential (primary) hypertension; Z79.899 Other long term (current) drug therapy; Z51.81 Encounter for therapeutic drug level monitoring
CPT/HCPCS: 36415; 80048; 80076; 80307; 83690; 83735; 84484; 85025; 85652; 86140; 93005; 96374; 96375; 99284; 99285; J1885; J3360

== ENCOUNTER → 2024-11-18 08:28 | Outpatient (BNV) | payer OTHER, SELFPAY | PROVIDERS: Emergency Provider Emergency Medicine; PCP Nurse Practitioner Family; Visit Provider Internal Medicine | DX: R00.1 Bradycardia, unspecified (principal) | CPT/HCPCS: 93010 ==

== ENCOUNTER 2025-01-19 08:24 | Outpatient (AMB) | payer OTHER, SELFPAY ==
[2025-01-19 08:26] VITALS: BP 138/61; PULSE 59; BMI 25.4
--- NOTE | 2025-01-19 08:26 | MHC.OFFVIS ---
Vital Signs 01/19/25 08:26 Height 6 ft Weight 187 lb 6.287 oz BMI 25.4 BP 138/61 Blood Pressure Location Lt brachial Position Sitting Pulse 59 Intake Visit Reasons: 3m Intake Note: Hermes presents in the office as a 3 month follow up. CC: States that his stomach hurts all the time. Constipation and he states he went yesterday and the first two times he had a BM it was a marbles and then the 3rd was a 3.5ft snake. Allergies No Known Allergies (No Known Allergies*) Allergy (Verified 01/19/25 08:38) HPI Comments Details: 62 y.o M with PMH of COPD, HTN, SVT (was prev est by Kenya Brice at [facility]), polysubstance use disorder who is here for blood in stool. Pt reports having hard stools that are like pellets +/- straining. Stool is brown but would see blood on it and on wiping. Also reports R lower right quadrant pain without nausea or weight loss. In fact has been gaining weight. Has been taking nexium and mylanta which seemed to have helped. Constipation is better with milk of mag PRN. Has never had a colo. No fam hx of CRC. Pt himself has smoking hx - roughly 55 PY hx. Remote use of etOH use disorder. Sober for 8 years. Used to drink hard liquor 12-15 times a day. Not aware of any liver issues. Also uses heroin - sniffs. Prev hx of crack/cocaine use around 5 years. In terms of cardiac hx, has hx of SVT, V TAch and PVCs + severe HTN - started on diltiazem, clonidine and amlodipine. BB avoided due to hx of cocaine use in past. Prev echo normal (2020). Was seen by Kevin. 05/28/24: Here for follow up. Last seen in 2023. Lost to follow up since. Arranged colo 04/2024 which the pt called to cancel. Pt reports main issue now is abd discomfort, bloating and increased borborygmi. Has early satiety. Lost almost 18 lbs in 3 months. Still occ sees blood in stool. Stools fluctuate between black and watery to normal. Has been seen by cardiology and cleared for procedure. Recently seen at [facility] for the same sx - CT negative for GI but has adrenal abnl - seeing endocrine. 07/06/24: 1. Normal esophagus 2. Normal stomach (biopsy) 3. Duodenitis (biopsy) 4. Normal colon and terminal ileum mucosa (biopsy) 5. Internal hemorrhoids 6. Diverticulosis Path: A. Duodenum, biopsy: Duodenal mucosa with preserved villi and no specific change. B. Gastric antrum, greater curvature, biopsy: Predominantly gastric antral mucosa with focal minimal chronic inactive inflammation; negative for H. pylori, intestinal metaplasia and dysplasia. C. Gastric antrum, lesser curvature, biopsy: Gastric antral mucosa with focal minimal chronic inactive inflammation; negative for H. pylori, intestinal metaplasia and dysplasia. D. Gastric incisura, biopsy: Gastric body mucosa with focal minimal chronic inactive inflammation; negative for H. pylori, intestinal metaplasia and dysplasia. E. Gastric body, greater curvature, biopsy: Gastric body mucosa with focal minimal chronic inactive inflammation; negative for H. pylori, intestinal metaplasia and dysplasia. F. Gastric body, lesser curvature, biopsy: Gastric body mucosa with focal minimal chronic inactive inflammation; negative for H. pylori, intestinal metaplasia and dysplasia. G. Colon, right, biopsy: Colonic mucosa with no specific change; no evidence of microscopic colitis. H. Colon, left, biopsy: Colonic mucosa with lymphoid aggregates and no specific change; no evidence of microscopic colitis. 07/21/24: Here for follow up. EGD and colo results reviewed. Bx normal. Reports continues to have bloating and constipation. Reports pellet like stools with straining. Weight curve has stabilized but has low energy, east fatigability and early satiety. Following with endocrine for enlarged adrenal gland. Pt also overdue for lung cancer screening. Had lung-RADS 3 nodules needing 6m follow up in Mar 2023 which is overdue. 09/20/24: CTA LIVER: The liver is normal in size and contour. No liver mass is identified on this arterial phase examination. GALLBLADDER / BILE DUCTS: The gallbladder is unremarkable. There is no intra or extrahepatic biliary ductal dilatation. SPLEEN: The spleen is normal in size. No focal splenic lesion is identified. PANCREAS: The pancreas is unremarkable in appearance. ADRENAL GLANDS: There are multiple bilateral renal nodules, the largest of which is on the left measuring 3.1 x 1.6 cm. KIDNEYS/RETROPERITONEUM: No renal calculi are identified. There is no hydronephrosis. No renal masses are identified. LYMPH NODES: No abdominal or pelvic lymphadenopathy. VASCULATURE: There is mild atherosclerotic calcification of the abdominal aorta without evidence of an aneurysm. The celiac axis, superior mesenteric artery, and inferior mesenteric artery are widely patent. The bilateral renal arteries are patent. The bilateral common and external iliac arteries are patent. MESENTERY/PERITONEUM: No free fluid. No masses. There is no free intraperitoneal gas. 10/13/24: Here for follow-up. Reports improvement in symptoms since last week. Has been able to go to work without any further time off. Reports more recently, has been more constipated despite taking fiber gummies. Just picked up [id number] MiraLax from pharmacy today. Has not tried it yet. Results of CTA reviewed with the patient. Essentially, low likelihood of chronic mesenteric ischemia based on patent vasculature. He is aware that he should be following up with Endocrinology for known adrenal nodules. 01/19/25: He is here for follow up. Reports was in discomfort over the weekend when he had not had a BM for three days. Was unable to defecate properly and noted blood on stool, likely from hemorrhoids. He missed a few days of MiraLax, which he usually takes daily. Was able to finally move the bowels yesterday with immediate relief in abd pain. Dietary intake includes some fiber through Benefiber irregularly and cereals like Wheaties. Of note, lung nodules are currently stable. --- Pt was informed and consented to the use of ambient scribe for this encounter. --- [facility] Medical History Nicotine dependence, cigarettes, uncomplicated SVT (supraventricular tachycardia) Palpitations Adrenal nodule Depression HTN (hypertension) COPD (chronic obstructive pulmonary disease) Atherosclerotic cardiovascular disease Substance abuse Surgical History History of esophagogastroduodenoscopy (EGD) History of colonoscopy Hx of nephrolithotomy with removal of calculi H/O hand surgery History of open reduction and internal fixation (ORIF) procedure Family History Father No problems noted. Family/Other No problems noted. Other Substance use disorder Social History Household Members Other:: brother Housing: House Are you a primary healthcare economics consultant to a significant other at home: No Do you presently have visiting nurse or other home services: No Alcohol intake: former Patient Tobacco Use Status: Current everyday Tobacco user Tobacco use type: Cigarette Cigarette Packs Per Day: 0.5 Cigarettes Per Day: 10.0 Years Smoked: 44 (onset 15) e-Cigarette/Vaping Use: Never Used Second Hand Smoke Exposure: No Substance Use Type: Heroin Current occupational status: employed Current occupation: [employer] Current occupational exposures/hazards: Yes Cognitive needs: No Hearing needs: No Vision needs: No Review of Systems Const All systems reviewed & are unremarkable except as noted in HPI and below Physical Exam Exam Exam: No apparent distress Nonicteric Abdomen soft, nondistended Alert and oriented x3, normal gait Vital Signs: Last Vital Signs Pulse 59 01/19/25 08:26 BP 138/61 01/19/25 08:26 BMI result Body Mass Index 25.4 Assessment & Plan Assessment & Plan (1) Abdominal pain: Code(s): R10.9 - Unspecified abdominal pain Category: Medical Qualifiers: Abdominal location: lower abdomen, unspecified Qualified Code(s): R10.30 - Lower abdominal pain, unspecified (2) Change in bowel habit: Code(s): R19.4 - Change in bowel habit Category: Medical (3) Chronic idiopathic constipation: Code(s): K59.04 - Chronic idiopathic constipation Category: Medical (4) Lung nodule: Code(s): R91.1 - Solitary pulmonary nodule Plan 1. Chronic Constipation with abd pain Reviewed strategies with the pt to ensure he is on a regular regimen and to avoid missed/skipped dose. Can add stimulant laxative on top of miralax if no BMx2 days. Plan: - Daily MiraLax; add bisacodyl if constipated for two days. - Take regular fiber; Benefiber every day or at least other day. - Adequate hydration - Use step stool to elevate legs during BM 2. Lung Nodules - Monitored by pulm. Most recent CT reassuring. Follow up 6 months Medications: New bisacodyl take if no BM for 2 days 10 mg (2 x 5 mg) PO BEDTIME PRN 60 tabs 1RF constipation 30 days Coding Level of Care Code Est Pt Level 4 (15022) Diagnoses Lower abdominal pain R10.30 Abdominal location: lower abdomen, unspecified Change in bowel habit R19.4 Chronic idiopathic constipation K59.04 Lung nodule R91.1
--- OUTSIDE RECORDS SUMMARY | 2025-01-19 16:06 | XMS_ITS | Clinical Summary ---
Author Organization [facility] ity Address [address] [place] [address] Care Team Providers Care Foreign Language Teacher Name Role Phone Unavailable Primary Care Provider [...] Depression Screening 03/03/2024 COVID-19 Vaccine (1 - 2024-2 6 season) 2024 Influenza Vaccine (#1) 2024 RSV [...] complete this topic RSV Immunization Patients Un hbeer 20 months Aged Out No longer eligible b ased on patient's age to complete this topic Varicella Vaccines Aged Out No longer eligible based on patient's age to complete this topic
== END 2025-01-19 09:12 | disposition home or self-care (01) ==
LOC: HO.HGI 08:25
PROVIDERS: PCP Nurse Practitioner Family; Visit Provider Internal Medicine
DX: R10.30 Lower abdominal pain, unspecified (principal); K59.04 Chronic idiopathic constipation; R91.1 Solitary pulmonary nodule
CPT/HCPCS: 99214

== ENCOUNTER 2025-02-09 10:15 | Outpatient (REF) | payer OTHER, SELFPAY ==
--- NOTE | ~2025-02-09 | US_ITS ---
CLINICAL HISTORY: N20.0 - Calculus of kidney US Renal Comparison: US/SR - US KIDNEY BILATERAL - 02/10/24 11:27 EST Findings: Right kidney normal size and echotexture and measures 10.4 cm x 4.3 cm x 5.2 cm. There is a 9 mm hyperechoic round lesion of the lower pole of the right kidney which is nonspecific Left kidney normal size measures 9.2 cm x 5.4 cm x 5.3 cm. There is a 6 mm anechoic cyst of the midpole of the left kidney medially. No hydronephrosis of either kidney. Normal color Doppler IMPRESSION: 1. 9 mm hyperechoic indeterminate lesion of the lower pole of the right kidney. 2. 6 mm simple cyst of the left kidney. This document has been electronically signed by: Karmen Fuchs MD on 02/09/2025 17:11:39
== END 2025-02-09 10:16 | disposition home or self-care (01) ==
LOC: HO.HMGCX 10:15
PROVIDERS: PCP Nurse Practitioner Family; Visit Provider Urology
DX: N20.0 Calculus of kidney (principal)
CPT/HCPCS: 76775

== ENCOUNTER → 2025-02-09 10:20 | Outpatient (BNV) | payer OTHER, SELFPAY | PROVIDERS: PCP Nurse Practitioner Family; Visit Provider Specialist | DX: N28.1 Cyst of kidney, acquired (principal); N28.9 Disorder of kidney and ureter, unspecified | CPT/HCPCS: 76775 ==

== ENCOUNTER 2025-02-22 10:26 | Outpatient (AMB) | payer OTHER, SELFPAY ==
--- NOTE | 2025-02-22 10:35 | MHC.OFFVIS ---
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 He is a patient of Dr. Ramos. He seen for the following urologic conditions - distal nephrolithiasis 12 month follow-up ultrasound Works 3rd shift No stones on imaging If clear in 12 months can discharge Encourage 80 oz with water per day Nephrolithiasis Distal right ureteric stone with hydronephrosis Creatinine 0.8, WBC 11.5 11/24 ureteroscopy with laser lithotripsy - right distal stone Imaging - 02/24 renal ultrasound no stone seen [facility] Medical History Nicotine dependence, cigarettes, uncomplicated SVT (supraventricular tachycardia) Palpitations Adrenal nodule Depression HTN (hypertension) COPD (chronic obstructive pulmonary disease) Atherosclerotic cardiovascular disease Substance abuse Surgical History History of esophagogastroduodenoscopy (EGD) History of colonoscopy Hx of nephrolithotomy with removal of calculi H/O hand surgery History of open reduction and internal fixation (ORIF) procedure Family History Father No problems noted. Family/Other No problems noted. Other Substance use disorder Social History Household Members Other:: brother Housing: House Are you a primary wild animal caretaker to a significant other at home: No Do you presently have visiting nurse or other home services: No Alcohol intake: former Patient Tobacco Use Status: Current everyday Tobacco user Tobacco use type: Cigarette Cigarette Packs Per Day: 0.5 Cigarettes Per Day: 10.0 Years Smoked: 46 (onset 15) e-Cigarette/Vaping Use: Never Used Second Hand Smoke Exposure: No Substance Use Type: Heroin Current occupational status: employed Current occupation: [employer] Current occupational exposures/hazards: Yes Cognitive needs: No Hearing needs: No Vision needs: No Review of Systems Const Denies chills and Denies fever(s) Card Reports no additional complaints and Denies syncope Resp Denies cough GI Denies abdominal pain and Denies heartburn Reports as per HPI and Denies change in libido Neuro Denies syncope Psych Denies change in libido Endo Denies change in libido Physical Exam Const General: cooperative, healthy appearing, comfortable and no acute distress Orientation/consciousness: patient oriented x3 HEENT Face and sinus: Yes normal facial exam Mouth: moist mucous membranes Neck Neck: Yes normal visual inspection, Yes full ROM and Yes trachea midline Chest Chest palpation & inspection: normal inspection of the chest Resp Effort & Inspection: normal respiratory effort, able to speak in complete sentences and no respiratory distress GI Inspection: Yes normal to inspection Back/Spine/Pelvis Cervical Spine: normal cervical lordosis Thoracic/Lumbar Spine: thoracic and lumbar spine normal to inspection Skin General skin exam: no rashes or lesions noted Neuro General: patient oriented x3, gait normal, tone normal and moves all extremities Extrem General: Yes normal to inspection and Yes capillary refill normal Assessment & Plan Assessment & Plan (1) Nephrolithiasis: Code(s): N20.0 - Calculus of kidney Category: Medical Plan 12 month follow-up renal ultrasound Orders: Orders US renal BI 12 Months N20.0 - Calculus of kidney Patient Instructions: This note is constructed using voice recognition software. While every effort has been made to ensure accuracy dry transfer worker errors may have been included. Imaging studies, laboratory and physical exam results were discussed and reviewed in detail. No major barriers to patient understanding were identified. An opportunity to ask questions regarding the treatment plan was provided. All questions were answered. The patient expressed understanding and agreement with the above treatment plan. The patient is aware they should contact our office by phone for worsening of their current condition or the appearance of new urologic symptoms. Compliance is encouraged with any medications and followup testing that is ordered. It is a privilege to participate in the urologic care of your patient. If you have any questions or concerns regarding treatment for the above conditions, or other urologic issues, please do not hesitate to contact me. The office telephone contact is [phone]. Sincerely, Dr Hermilo Weir MD, [facility] - Urology Compassionate Specialist Care for the Genitourinary System Coding Level of Care Code Est Pt Level 4 (38953) Diagnoses Nephrolithiasis N20.0
--- OUTSIDE RECORDS SUMMARY | 2025-02-22 11:41 | XMS_ITS | Clinical Summary ---
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
== END 2025-02-22 11:51 | disposition home or self-care (01) ==
LOC: HO.HUSH 10:26
PROVIDERS: PCP Nurse Practitioner Family; Visit Provider Urology
DX: N20.0 Calculus of kidney (principal)
CPT/HCPCS: 99214